=== PATIENT | female | born 1945 | race Two or more races ===

== ENCOUNTER 2018-04-25 10:26 | Inpatient (IN) | payer MEDICARE, MEDICAID ==
[~2018-04-25] VITALS: Ht 149.9 cm; Wt 65.3 kg
[~2018-04-25 10:26] MED LIST: ASPIR 8181 MG ORAL; DIFLUCAN100 MG ORAL; DOXYCYCLINE HY100 M2 ORAL; FUROSEMIDE40 MG ORAL; FUROSEMIDE40 MG/5 ML ORAL; HYDROMORPHO2 MG/1 M5 IVP; LEVEMIR FL100 UNIT/1 SUBQ; LIPITOR20 MG ORAL; LISINOPRIL20 MG ORAL; LOMOTIL TABLET1 EACH ORAL; MACROBID100 MG ORAL; METOPROLOL SUCC25 MG ORAL; NEXIUM40 MG ORAL; NORCO 10/3251 EA ORAL; NORVASC5 MG ORAL; NOVOLOG MI100 UNIT/4 SQ; NOVOLOG100 UNITS1 SUBQ; ONDANSETRON4 MG/2 M2 IVP; PROTONIX40 MG ORAL; SPIRONOLACTONE100 MG ORAL; TOPROL XL50 MG ORAL; VASOTEC10 MG ORAL
[2018-04-25] MEDS ORDERED: NEXIUM40 MG ORAL (14:59)
[2018-04-25] MEDS ORDERED: CLONIDINE HCL0.1 MG PO (14:59)
[2018-04-25] MEDS ORDERED: ENALAPRIL MALEAT5 MG ORAL (14:59)
[2018-04-25] MEDS ORDERED: TYLENOL WITH C1 EAC2 ORAL (14:59)
[2018-04-25] MEDS ORDERED: ASPIRIN81 M3 PO (15:00)
[2018-04-25 15:37] VITALS: BP 115/85
[2018-04-25 16:00] VITALS: BP 135/68
--- NOTE | 2018-04-25 16:49 | Diagnostic Imaging Report ---
Indication: Cough Technique: One view of the chest Comparison: 05/03/2015 Findings: Band of scarring is seen in the left midlung, unchanged. Lungs and pleural spaces otherwise clear. Heart size is upper limits of normal. The aorta is calcified. No significant interim change Impression: No acute process
[2018-04-25] MEDS: Tylenol #3 tab (300mg/30mg) ORAL PRN (18:02)
[2018-04-25] MEDS: cefTRIAXone 1 GM in D5W 55 ML IVPB SCH (18:10)
[2018-04-25 20:00] VITALS: BP 126/70
[2018-04-25 20:11] LABS: APPEARANCE,URINE CLEAR; BILIRUBIN, URINE NEGATIVE (NEGATIVE); COLOR,URINE PALE YELLOW; GLUCOSE, URINE (UA) NEGATIVE (NEGATIVE); KETONES,URINE NEGATIVE (NEGATIVE); LEUKOCYTE ESTERASE ,URINE 2+ (NEGATIVE); NITRITE,URINE NEGATIVE (NEGATIVE); PH,URINE 5 (4.5-8.0); PROTEIN,URINE 3+ (NEGATIVE); UROBILINOGEN,URINE NORMAL MG/DL (0.0-1.0)
[2018-04-25] MEDS: Albuterol/Ipratropium 3ml neb HHN SCH ×2 (20:11→23:16)
[2018-04-25 20:48] LABS: EOSINOPHILS % (AUTO) 3.7 % (0.0-3.0); HEMATOCRIT 32.6 % (37.0-47.0); HEMOGLOBIN 10.8 G/DL (12.0-16.0); LYMPHOCYTES % (AUTO) 32.8 % (20.0-45.0); MEAN CORPUSCULAR VOLUME 95 FL (80-99); MONOCYTES % (AUTO) 10.2 % (1.0-10.0); NEUTROPHILS % (AUTO) 51.4 % (45.0-75.0); PLATELET COUNT 171 K/UL (150-450); RED BLOOD COUNT 3.42 M/UL (4.20-5.40); RED CELL DISTRIBUTION WIDTH 12.4 % (11.6-14.8); WHITE BLOOD COUNT 12.3 K/UL (4.8-10.8)
[2018-04-25 20:57] LABS: ALANINE AMINOTRANSFERASE 13 U/L (12-78); ALBUMIN 2.9 G/DL (3.4-5.0); ALKALINE PHOSPHATASE 180 U/L (46-116); ANION GAP 9 mmol/L (5-15); ASPARTATE AMINO TRANSFERASE 10 U/L (15-37); BILIRUBIN,TOTAL 0.2 MG/DL (0.2-1.0); BLOOD UREA NITROGEN 37 mg/dL (7-18); CALCIUM 8.4 MG/DL (8.5-10.1); CARBON DIOXIDE 28 MMOL/L (21-32); CHLORIDE 102 MMOL/L (98-107); CREATININE 1.8 MG/DL (0.55-1.30); POTASSIUM 3.9 MMOL/L (3.5-5.1); SODIUM 138 MMOL/L (136-145)
[2018-04-25] MEDS: Heparin 5000 units/ml inj SUBQ SCH (21:01)
[2018-04-25] MEDS: NovoLOG Insulin Flexpen SUBQ SCH (21:02)
[2018-04-26] VITALS: BP 134/52
[2018-04-26] MEDS: Promethazine/Codeine 5ml UD ORAL PRN ×3 (00:24→13:54)
[2018-04-26] MEDS: Albuterol/Ipratropium 3ml neb HHN SCH ×6 (03:35→23:58)
[2018-04-26 04:00] VITALS: BP 131/80
[2018-04-26] MEDS: Tylenol #3 tab (300mg/30mg) ORAL PRN ×3 (04:50→20:49)
[2018-04-26] MEDS: NovoLOG Insulin Flexpen SUBQ SCH ×4 (06:36→20:51)
[2018-04-26 07:58] LABS: BASOPHILS % (AUTO) 0.9 % (0.0-2.0); EOSINOPHILS % (AUTO) 2.8 % (0.0-3.0); HEMATOCRIT 35.3 % (37.0-47.0); HEMOGLOBIN 11.3 G/DL (12.0-16.0); LYMPHOCYTES % (AUTO) 24.9 % (20.0-45.0); MEAN CORPUSCULAR VOLUME 93 FL (80-99); MONOCYTES % (AUTO) 10.8 % (1.0-10.0); NEUTROPHILS % (AUTO) 60.6 % (45.0-75.0); PLATELET COUNT 179 K/UL (150-450); RED BLOOD COUNT 3.79 M/UL (4.20-5.40); RED CELL DISTRIBUTION WIDTH 12.5 % (11.6-14.8); WHITE BLOOD COUNT 7.3 K/UL (4.8-10.8)
[2018-04-26 08:00] VITALS: BP 130/79
[2018-04-26] MEDS: Aspirin Baby 81mg ORAL SCH (08:53)
[2018-04-26] MEDS: Atorvastatin 20mg tab ORAL SCH (08:53)
[2018-04-26] MEDS: Metoprolol Succinate XL 50mg tab ORAL SCH (08:53)
[2018-04-26] MEDS: Enalapril 5mg tab ORAL SCH ×2 (08:54→18:04)
[2018-04-26] MEDS ORDERED: Furosemide 40mg tab ORAL SCH (09:00)
[2018-04-26] MEDS ORDERED: Enalapril 5mg tab ORAL SCH (09:00)
[2018-04-26] MEDS: Heparin 5000 units/ml inj SUBQ SCH ×2 (09:02→20:50)
[2018-04-26] MEDS: cefTRIAXone 1 GM in D5W 55 ML IVPB SCH (09:20)
[2018-04-26 10:13] LABS: ALANINE AMINOTRANSFERASE 13 U/L (12-78); ALBUMIN 2.9 G/DL (3.4-5.0); ALBUMIN/GLOBULIN RATIO 0.9 (1.0-2.7); ALKALINE PHOSPHATASE 178 U/L (46-116); ANION GAP 12 mmol/L (5-15); ASPARTATE AMINO TRANSFERASE 10 U/L (15-37); BILIRUBIN,TOTAL 0.4 MG/DL (0.2-1.0); BLOOD UREA NITROGEN 32 mg/dL (7-18); CALCIUM 8.5 MG/DL (8.5-10.1); CARBON DIOXIDE 25 MMOL/L (21-32); CHLORIDE 102 MMOL/L (98-107); CREATININE 1.6 MG/DL (0.55-1.30); SODIUM 139 MMOL/L (136-145)
--- NOTE | 2018-04-26 11:15 | Consultation ---
DATE OF CONSULTATION: 04/25/2018 CARDIOLOGY CONSULTATION CONSULTING PHYSICIAN: Eder Mariano M.D. REQUESTING PHYSICIAN: Brian Fernandez M.D. REASON FOR REQUEST: Management of cardiovascular status in the setting of cardiomyopathy and acute respiratory infection. HISTORY: This is a 72-year-old female with history of hypertensive cardiomyopathy, systolic and diastolic dysfunction, and nonsustained ventricular ectopy, who presented to the hospital. She was seen by her primary care physician today and hospitalized because of progressive shortness of breath, congestion, and cough. She has spent some time in the hospital recently visiting her ill here in the intensive care unit for some time. She has not had fevers or chills, but has had cough and congestion. She has not responded to outpatient therapy. She denies chest pain, but has had some increasing orthopnea and ankle swelling. PAST MEDICAL HISTORY: 1. History of abdominal fistula, which has now healed. 2. Chronic kidney disease. 3. Insulin-requiring diabetes mellitus. 4. Diabetic neuropathy. 5. Degenerative disk disease. 6. Chronic pain syndrome. 7. Osteoarthritis. 8. Diverticulosis. 9. Hypertensive heart disease. 10. Nonsustained ventricular ectopy. 11. Diastolic dysfunction with history of congestive heart failure. 12. History of anemia with iron deficiency. ALLERGIES: Multiple including sulfa, penicillin, iodine, contrast media, and Floxin. MEDICATIONS: Reviewed and reconciled. SOCIAL HISTORY: Negative for smoking, alcohol, or substance abuse. FAMILY HISTORY: Noncontributory. REVIEW OF SYSTEMS: Prior cardiovascular workup as an outpatient has included echocardiogram with mildly decreased ejection fraction in the range of 50%, concentric hypertrophy, and no significant valvular disease. There is no history of sustained arrhythmias. Myocardial perfusion scan at [facility] has revealed less than 10% likelihood of flow-limiting coronary artery disease. There is no history of abnormal blood clotting or venous thromboses. There is no history of thyroid impairment. PHYSICAL EXAMINATION: VITAL SIGNS: Temperature 99, blood pressure 115/85, heart rate 90, respiratory rate 18, room air oxygen saturations 95% to 100%. HEENT: Normocephalic and atraumatic. Conjunctivae are pink. Sclerae are anicteric. Oropharynx clear. Mucous membranes moist. NECK: Supple. Obese. Jugular venous pressure difficult to assess. No thyromegaly. LUNGS: With coarse breath sounds. Few rhonchi bilaterally. CARDIAC: Regular rhythm and rate. Normal S1, S2 with a fourth heart sound. BREASTS: Without masses. ABDOMEN: Soft, obese, nontender. Healed scar. EXTREMITIES: Trace dependent edema. Good distal pulses. NEUROLOGIC: Nonfocal. Gait is not assessed. LABORATORY AND DIAGNOSTIC DATA: EKG is pending. Laboratories, white count 12.3, hemoglobin 12.6. Potassium 3.9, BUN 37, creatinine 1.8, albumin 2.9, glucose 124. Chest x-ray with no acute process. IMPRESSION: 1. Acute bronchitis. 2. Acute respiratory insufficiency. 3. Acute on chronic renal failure. 4. Nonischemic cardiomyopathy. 5. Chronic diastolic congestive heart failure. 6. Hypertensive heart disease. 7. Moderate protein-calorie malnutrition. 8. Insulin-requiring diabetes mellitus with complications as outlined above. PLAN OF CARE: 1. Respiratory hygiene. 2. Bronchodilator. 3. Antimicrobials. 4. Hold furosemide. 5. DVT prophylaxis. 6. Advance angiotensin-converting enzyme inhibitor. 7. Reassess amlodipine as it may be contributing to edema. 8. Continue beta-blockade. 9. Readdress maintenance diuretic therapy. 10. Trend natriuretic peptide assay. Judson Webster JOB#: [id number] CC:
[2018-04-26 12:00] VITALS: BP 129/78
[2018-04-26 16:00] VITALS: BP 131/54
--- NOTE | 2018-04-26 17:45 | History and Physical Report ---
DATE OF ADMISSION: 04/25/2018 CHIEF COMPLAINT: Pneumonia, dehydration, and acute renal failure. HISTORY OF PRESENT ILLNESS: The patient is a pleasant 72-year-old female, well known to me. She has a history of nonischemic cardiomyopathy, diabetes, and hypertension. She has a history of chronic lower back pain. She has a history of a right wrist fracture. She presented with complaints of cough, congestion, and shortness of breath. She has had symptoms for a little over a week. She was started on oral antibiotics and given cough medications, but symptoms worsened. She is now admitted in light of her failure to respond to outpatient therapy. PAST MEDICAL HISTORY: As above. PAST SURGICAL HISTORY: Includes abdominal hernia repair, history of fistula repair, and history of ORIF of the ankle. CURRENT MEDICATIONS: Reconciled and reviewed. ALLERGIES: Include Cipro, iodine, penicillin, and sulfa. FAMILY HISTORY: Noncontributory. SOCIAL HISTORY: There is no known history of tobacco, ethanol, or drugs. REVIEW OF SYSTEMS: GENERAL: Positive fevers and chills. HEENT: No headaches or visual changes. CARDIOPULMONARY: Positive cough, congestion, and shortness of breath. GASTROINTESTINAL: No nausea or vomiting. GENITOURINARY: No urgency or frequency. MUSCULOSKELETAL: Positive history of chronic lower back pain, right wrist pain, and bilateral knee pain. NEUROLOGIC: No known history of seizures. PHYSICAL EXAMINATION: VITAL SIGNS: Temperature 97, pulse 82, respirations 18, and blood pressure 131/80. GENERAL: The patient is well-developed, in no apparent distress. HEART: Regular rate and rhythm. LUNGS: Clear to auscultation. Bilateral rhonchi. ABDOMEN: Soft, nontender, and nondistended. EXTREMITIES: Without clubbing, cyanosis, or edema. LABORATORY DATA: White count 12, hemoglobin 10, hematocrit 32, and platelets of 71,000. Sodium 138, potassium 3.9, chloride 102, bicarb 28, BUN 37, and creatinine is 1.8. Urine showed 5 to 10 wbc's with 2+ leukocyte esterase positive. Chest x-ray showed possible scarring at the left mid lung. Otherwise clear. ASSESSMENT: This is a pleasant female admitted with complaints of pneumonia. 1. Pneumonia. 2. Acute renal failure. 3. Dehydration. 4. Hypertension. 5. History of diabetes. PLAN: 1. IV hydration. 2. Empiric antibiotic therapy. 3. Monitor chest x-ray. 4. Cardiology evaluation. 5. Monitor renal function. 6. Consider discontinuing FIDE if renal function does not improve. Brian Fernandez M.D. DR: AMOS JOB#: [id number] CC:
[2018-04-26 20:00] VITALS: BP 133/75
[2018-04-27] VITALS: BP 120/65
[2018-04-27 04:00] VITALS: BP 132/70
[2018-04-27] MEDS: Promethazine/Codeine 5ml UD ORAL PRN ×2 (04:01→12:45)
[2018-04-27] MEDS: Albuterol/Ipratropium 3ml neb HHN SCH ×5 (04:09→19:00)
--- NOTE | 2018-04-27 06:00 | Progress Note ---
DATE: 04/26/2018 CARDIOLOGY PROGRESS NOTE SUBJECTIVE: The patient remains weak. Short of breath with activity. Still with cough and congestion. OBJECTIVE: VITAL SIGNS: Blood pressure 131/54, heart rate 89, respiratory rate 17, afebrile, and oxygen saturation 94% to 100% on room air. LUNGS: Coarse breath sounds and rhonchi. CARDIAC: Regular rhythm and rate. Normal S1 and S2. ABDOMEN: Soft. Hernia noted. Wound closed. EXTREMITIES: No edema. LABORATORY DATA: No new cultures. White count down to 7.3 and hemoglobin 11.2. Potassium 3, BUN 32, creatinine 1.6, magnesium 1.1. Albumin 2.9. IMPRESSION: 1. Bronchopneumonia. 2. Paroxysmal bronchospasm. 3. Severe hypokalemia. 4. Severe hypomagnesemia. 5. Hypertensive cardiomyopathy. 6. Chronic diastolic congestive heart failure. 7. Abdominal hernia postoperatively. No open wounds. PLAN: 1. No surgical plan. 2. Maintain antihypertensive and magnesium and potassium. 3. Antimicrobials. 4. Respiratory hygiene. 5. DVT prophylaxis. Eder Mariano M.D. DR: CIELO JOB#: [id number] CC:
[2018-04-27] MEDS: NovoLOG Insulin Flexpen SUBQ SCH ×4 (06:31→22:11)
--- NOTE | 2018-04-27 07:10 | General Progress Note ---
Assessment/Plan Problem List: (1) ARF (acute renal failure) ICD Codes: N17.9 - Acute kidney failure, unspecified SNOMED: 08988999 (2) Weakness ICD Codes: R53.1 - Weakness SNOMED: 94956010 (3) UTI (urinary tract infection) ICD Codes: N39.0 - Urinary tract infection, site not specified SNOMED: 43058990 (4) diabetes (5) hypertension (6) PNA (pneumonia) ICD Codes: J18.9 - Pneumonia, unspecified organism SNOMED: 102895541 Status: stable, progressing Assessment/Plan ivf diuretics on hold abx resp rx cough rx follow up labs pain rx check flu Subjective ROS Limited/Unobtainable: No Constitutional: Reports: malaise, weakness HEENT: Reports: no symptoms Cardiovascular: Reports: no symptoms Respiratory: Reports: cough, shortness of breath Gastrointestinal/Abdominal: Reports: no symptoms Genitourinary: Reports: no symptoms Neurologic/Psychiatric: Reports: no symptoms Endocrine: Reports: no symptoms Hematologic/Lymphatic: Reports: no symptoms Allergies: Coded Allergies: CIPROFLOXACIN (Verified Allergy, Unknown, RASH, 01/17/11) IODINE (Verified Allergy, Unknown, 09/20/10) IV DYE, IODINE CONTAINING (Verified Allergy, Unknown, SHOCK, 01/17/11) PENICILLINS (Verified Allergy, Unknown, 09/20/10) SULFA (SULFONAMIDE ANTIBIOTICS) (Verified Allergy, Unknown, RASH, 01/17/11) All Systems: reviewed and negative except above Subjective c/o cough and congestion. +generalized pain. mild sob. "pain all over." Objective Last 24 Hour Vital Signs Date Time Temp Pulse Resp B/P (MAP) Pulse Ox O2 Delivery O2 Flow Rate FiO2 04/27/18 04:19 74 18 99 Room Air 04/27/18 04:10 75 16 97 Room Air 21 04/27/18 04:00 98.7 88 20 132/70 (90) 98 98.7 04/27/18 00:06 70 18 100 Room Air 04/27/18 00:00 97.6 81 20 120/65 (83) 100 97.6 04/26/18 23:59 74 16 96 Room Air 21 04/26/18 21:00 Room Air 04/26/18 20:27 76 20 99 Room Air 21 04/26/18 20:19 79 20 97 Room Air 21 10/4/18 20:00 98.4 86 20 133/75 (94) 96 98.4 04/26/18 18:04 131/54 04/26/18 16:00 98.0 89 17 131/54 (79) 98 98.0 04/26/18 15:19 75 20 100 Room Air 21 04/26/18 15:07 77 20 94 Room Air 21 04/26/18 12:00 97.9 80 18 129/78 (95) 98 97.9 04/26/18 11:46 98.0 04/26/18 11:17 82 20 100 Room Air 21 04/26/18 11:16 98.0 04/26/18 11:10 88 20 98 Room Air 21 04/26/18 09:00 Room Air 04/26/18 08:54 130/79 04/26/18 08:53 98 130/79 04/26/18 08:53 98 130/79 04/26/18 08:14 98 20 100 Room Air 21 04/26/18 08:07 101 20 97 Room Air 21 04/26/18 08:00 98.0 82 20 130/79 (96) 97 98.0 Intake and Output 04/26/18 04/27/18 19:00 07:00 Intake Total 1480 ml 675 ml Balance 1480 ml 675 ml Intake Oral 1000 ml IV Total 480 ml 675 ml # Voids 6 3 # Bowel Movements 1 1 Height (Feet): 4 Height (Inches): 11.00 Weight (Pounds): 144 General Appearance: WD/WN, alert Neck: supple Cardiovascular: regular rhythm Respiratory/Chest: chest wall non-tender, rhonchi - bilaterally Abdomen: normal bowel sounds, non tender, soft, no organomegaly Edema: no edema noted Arm (L), no edema noted Arm (R), no edema noted Leg (L), no edema noted Leg (R), no edema noted Pedal (L), no edema noted Pedal (R), no edema noted Generalized Brian Fernandez MD Apr 27, 2018 07:10
[2018-04-27 08:00] VITALS: BP 145/76
[2018-04-27] MEDS: Atorvastatin 20mg tab ORAL SCH (09:16)
[2018-04-27] MEDS: Enalapril 5mg tab ORAL SCH ×2 (09:16→17:01)
[2018-04-27] MEDS: Aspirin Baby 81mg ORAL SCH (09:16)
[2018-04-27] MEDS: Metoprolol Succinate XL 50mg tab ORAL SCH (09:16)
[2018-04-27] MEDS: cefTRIAXone 1 GM in D5W 55 ML IVPB SCH (09:16)
[2018-04-27] MEDS: Morphine Sulfate 2mg/ml Inj IVP PRN ×3 (09:17→21:00)
[2018-04-27] MEDS: Heparin 5000 units/ml inj SUBQ SCH ×2 (09:24→21:00)
[2018-04-27 11:07] LABS: ANION GAP 7 mmol/L (5-15); BLOOD UREA NITROGEN 27 mg/dL (7-18); CALCIUM 8.8 MG/DL (8.5-10.1); CARBON DIOXIDE 25 MMOL/L (21-32); CHLORIDE 103 MMOL/L (98-107); CREATININE 1.2 MG/DL (0.55-1.30); POTASSIUM 4.8 MMOL/L (3.5-5.1); SODIUM 135 MMOL/L (136-145)
[2018-04-27 12:00] VITALS: BP 150/1
[2018-04-27 16:00] VITALS: BP 137/74
[2018-04-27] MEDS ORDERED: Levalbuterol Inh UD 1.25mg/0.5ml HHN PRN (17:30)
[2018-04-27 20:00] VITALS: BP 149/74
--- NOTE | 2018-04-27 20:45 | Progress Note ---
DATE: 04/27/2018 CARDIOLOGY PROGRESS NOTE SUBJECTIVE: The patient is feeling better. The patient still has cough, congestion, diffuse pain, and shortness of breath, especially with mobilization. OBJECTIVE: GENERAL: No fevers. VITAL SIGNS: Blood pressure 137/74, pulse 84, and respirations 20. NECK: Supple. LUNGS: Clear. CARDIAC: Regular rhythm and rate. Normal S1 and S2 with a 1/6 systolic apical murmur. ABDOMEN: Soft. Hernia is soft. EXTREMITIES: Trace dependent edema. SKIN: Wound sites on the abdomen are healed. LABORATORY DATA: White count down to 7.3 and hemoglobin 11.3. Sodium 135, potassium 4.8, magnesium 1.9, BUN 27, and creatinine 1.2. IMPRESSION: 1. Bronchopneumonia. 2. Cardiomyopathy. 3. Chronic diastolic congestive heart failure. 4. Moderate protein-calorie malnutrition. 5. Hypertensive heart disease. 6. Acute on chronic renal failure, now improved. PLAN: 1. Antimicrobials. 2. Bronchodilators. 3. Respiratory hygiene. 4. Titrate anti-failure and antihypertensive regimen. 5. Discontinue IV fluids. 6. DVT prophylaxis. Eder Mariano M.D. DR: AMANDA JOB#: [id number] CC:
[2018-04-28] VITALS: BP 144/86
[2018-04-28] MEDS: Albuterol/Ipratropium 3ml neb HHN SCH ×7 (01:35→22:42)
[2018-04-28] MEDS: Morphine Sulfate 2mg/ml Inj IVP PRN ×3 (03:30→14:38)
[2018-04-28] MEDS: Promethazine/Codeine 5ml UD ORAL PRN ×3 (04:04→20:31)
[2018-04-28 04:46] VITALS: BP 137/81
[2018-04-28] MEDS: NovoLOG Insulin Flexpen SUBQ SCH ×4 (05:55→20:27)
[2018-04-28 07:02] LABS: CHLORIDE 104 MMOL/L (98-107); POTASSIUM 4.7 MMOL/L (3.5-5.1); SODIUM 138 MMOL/L (136-145)
[2018-04-28 07:20] LABS: ANION GAP 7 mmol/L (5-15); BLOOD UREA NITROGEN 25 mg/dL (7-18); CALCIUM 9.9 MG/DL (8.5-10.1); CARBON DIOXIDE 27 MMOL/L (21-32); CREATININE 1.1 MG/DL (0.55-1.30)
[2018-04-28 08:00] VITALS: BP 152/89
--- NOTE | 2018-04-28 08:31 | General Progress Note ---
Assessment/Plan Problem List: (1) ARF (acute renal failure) ICD Codes: N17.9 - Acute kidney failure, unspecified SNOMED: 04246781 (2) Weakness ICD Codes: R53.1 - Weakness SNOMED: 30144227 (3) UTI (urinary tract infection) ICD Codes: N39.0 - Urinary tract infection, site not specified SNOMED: 86737486 (4) diabetes (5) hypertension (6) PNA (pneumonia) ICD Codes: J18.9 - Pneumonia, unspecified organism SNOMED: 170760913 Status: stable, progressing Assessment/Plan ivf dcd diuretics as needed abx resp rx cough rx follow up labs pain rx replace mg Subjective ROS Limited/Unobtainable: No Constitutional: Reports: malaise, weakness HEENT: Reports: no symptoms Cardiovascular: Reports: no symptoms Respiratory: Reports: cough Gastrointestinal/Abdominal: Reports: no symptoms Genitourinary: Reports: no symptoms Neurologic/Psychiatric: Reports: no symptoms Endocrine: Reports: no symptoms Hematologic/Lymphatic: Reports: no symptoms Allergies: Coded Allergies: CIPROFLOXACIN (Verified Allergy, Unknown, RASH, 01/17/11) IODINE (Verified Allergy, Unknown, 09/20/10) IV DYE, IODINE CONTAINING (Verified Allergy, Unknown, SHOCK, 01/17/11) PENICILLINS (Verified Allergy, Unknown, 09/20/10) SULFA (SULFONAMIDE ANTIBIOTICS) (Verified Allergy, Unknown, RASH, 01/17/11) All Systems: reviewed and negative except above Subjective c/o cough and congestion. +generalized pain. feeling a "little better." +pain Objective Last 24 Hour Vital Signs Date Time Temp Pulse Resp B/P (MAP) Pulse Ox O2 Delivery O2 Flow Rate FiO2 04/28/18 05:03 74 20 99 Room Air 21 04/28/18 04:54 71 20 99 Room Air 21 04/28/18 04:46 98.0 79 19 137/81 (99) 100 98.0 04/28/18 04:00 97.7 04/28/18 03:30 97.7 04/28/18 01:43 63 20 99 Room Air 21 04/28/18 01:35 68 20 98 Room Air 21 04/28/18 00:00 97.7 94 19 144/86 (105) 97 97.7 04/27/18 21:00 98.9 04/27/18 21:00 Room Air 04/27/18 20:00 98.0 74 19 149/74 (99) 96 98.0 04/27/18 17:01 137/74 04/27/18 16:00 98.9 84 20 137/74 (95) 98 98.9 04/27/18 15:38 97.6 04/27/18 12:00 97.6 73 20 150/1 (50) 98 97.6 04/27/18 10:55 78 20 100 Room Air 21 04/27/18 10:47 77 18 96 Room Air 21 04/27/18 09:17 98.9 04/27/18 09:16 145/76 04/27/18 09:16 88 145/76 04/27/18 09:16 88 145/76 04/27/18 09:00 Room Air Intake and Output 04/27/18 04/28/18 19:00 07:00 Intake Total 700 ml 120 ml Balance 700 ml 120 ml Intake Oral 700 ml 120 ml # Voids 6 3 # Bowel Movements 1 Laboratory Tests 04/27/18 10:10: Sodium Level 135L, Potassium Level 4.8#, Chloride Level 103, Carbon Dioxide Level 25, Anion Gap 7, Blood Urea Nitrogen 27H, Creatinine 1.2, Estimat Glomerular Filtration Rate , Glucose Level 215H, Calcium Level 8.8, Magnesium Level 1.9 04/28/18 04:50: Sodium Level 138, Potassium Level 4.7, Chloride Level 104, Carbon Dioxide Level 27, Anion Gap 7, Blood Urea Nitrogen 25H, Creatinine 1.1, Estimat Glomerular Filtration Rate , Glucose Level 195H, Calcium Level 9.9, Magnesium Level 1.7L Height (Feet): 4 Height (Inches): 11.00 Weight (Pounds): 144 General Appearance: WD/WN, alert Neck: supple Cardiovascular: normal rate, regular rhythm Respiratory/Chest: chest wall non-tender, lungs clear, normal breath sounds, no respiratory distress Abdomen: normal bowel sounds, non tender, soft, no organomegaly Edema: no edema noted Arm (L), no edema noted Arm (R), no edema noted Leg (L), no edema noted Leg (R), no edema noted Pedal (L), no edema noted Pedal (R), no edema noted Generalized Brian Fernandez MD Apr 28, 2018 08:31
[2018-04-28] MEDS: Atorvastatin 20mg tab ORAL SCH (08:53)
[2018-04-28] MEDS: Aspirin Baby 81mg ORAL SCH (08:53)
[2018-04-28] MEDS: Enalapril 5mg tab ORAL SCH ×2 (08:58→17:42)
[2018-04-28] MEDS: Metoprolol Succinate XL 50mg tab ORAL SCH (08:59)
[2018-04-28] MEDS: Heparin 5000 units/ml inj SUBQ SCH ×2 (09:00→20:26)
[2018-04-28] MEDS: cefTRIAXone 1 GM in D5W 55 ML IVPB SCH (09:00)
[2018-04-28 12:00] VITALS: BP 140/81
[2018-04-28 16:00] VITALS: BP 160/78
[2018-04-28] MEDS: Tylenol #3 tab (300mg/30mg) ORAL PRN (16:42)
[2018-04-28 20:00] VITALS: BP 98/53
[2018-04-29] VITALS: BP 100/52
[2018-04-29] MEDS: Morphine Sulfate 2mg/ml Inj IVP PRN ×5 (02:09→23:17)
--- NOTE | 2018-04-29 02:15 | Progress Note ---
DATE: 04/28/2018 CARDIOLOGY PROGRESS NOTE SUBJECTIVE: The patient still feels generalized pain and weakness and she still has cough and congestion, but has improved. No chest pain. No leg swelling. She is receiving IV magnesium. OBJECTIVE: VITAL SIGNS: Blood pressure 137/81, pulse 79, respiratory rate 19, afebrile, and oxygen saturation is 99% on room air. LUNGS: Few rhonchi. HEART: Regular rhythm and rate. Normal S1 and S2. ABDOMEN: Soft with hernia noted. EXTREMITIES: Without edema. LABORATORY DATA: Repeat magnesium today is 1.7. IMPRESSION: 1. Bronchopneumonia. 2. Hypomagnesemia. 3. Hypertensive cardiomyopathy. 4. Chronic diastolic congestive heart failure. 5. Acute on chronic renal failure, resolving. 6. Moderate protein-calorie malnutrition. PLAN: 1. Plan of care in place. 2. Continue antimicrobials, bronchodilators, respiratory hygiene, and IV magnesium replacement. 3. Continue titration of anti-failure and antihypertensive regimen based on clinical parameters. Eder Mariano M.D. DR: DARCI JOB#: [id number] CC:
[2018-04-29] MEDS: Albuterol/Ipratropium 3ml neb HHN SCH ×6 (02:29→23:01)
[2018-04-29 04:00] VITALS: BP 105/62
[2018-04-29] MEDS: NovoLOG Insulin Flexpen SUBQ SCH ×4 (05:57→21:39)
[2018-04-29 08:00] VITALS: BP 150/73
[2018-04-29] MEDS: Aspirin Baby 81mg ORAL SCH (08:21)
[2018-04-29] MEDS: Enalapril 5mg tab ORAL SCH ×2 (08:22→17:05)
[2018-04-29] MEDS: Atorvastatin 20mg tab ORAL SCH (08:22)
[2018-04-29] MEDS: Metoprolol Succinate XL 50mg tab ORAL SCH (08:23)
[2018-04-29] MEDS: Heparin 5000 units/ml inj SUBQ SCH ×2 (08:33→21:40)
[2018-04-29] MEDS: cefTRIAXone 1 GM in D5W 55 ML IVPB SCH (08:38)
[2018-04-29] MEDS: Tylenol #3 tab (300mg/30mg) ORAL PRN (10:46)
[2018-04-29 12:00] VITALS: BP_SYST 119; BP_SYST 122; BP_DIAS 66; BP_DIAS 76
--- NOTE | 2018-04-29 14:54 | General Progress Note ---
Assessment/Plan Problem List: (1) ARF (acute renal failure) ICD Codes: N17.9 - Acute kidney failure, unspecified SNOMED: 04436107 (2) Weakness ICD Codes: R53.1 - Weakness SNOMED: 68401065 (3) UTI (urinary tract infection) ICD Codes: N39.0 - Urinary tract infection, site not specified SNOMED: 63200260 (4) diabetes (5) hypertension (6) PNA (pneumonia) ICD Codes: J18.9 - Pneumonia, unspecified organism SNOMED: 471884453 Status: stable, progressing Assessment/Plan encourage pos diuretics as needed abx resp rx cough rx pain rx dc planning tomorrow Subjective ROS Limited/Unobtainable: No Constitutional: Reports: malaise, weakness HEENT: Reports: no symptoms Cardiovascular: Reports: no symptoms Respiratory: Reports: no symptoms Gastrointestinal/Abdominal: Reports: no symptoms Genitourinary: Reports: no symptoms Neurologic/Psychiatric: Reports: no symptoms Endocrine: Reports: no symptoms Hematologic/Lymphatic: Reports: no symptoms Allergies: Coded Allergies: CIPROFLOXACIN (Verified Allergy, Unknown, RASH, 01/17/11) IODINE (Verified Allergy, Unknown, 09/20/10) IV DYE, IODINE CONTAINING (Verified Allergy, Unknown, SHOCK, 01/17/11) PENICILLINS (Verified Allergy, Unknown, 09/20/10) SULFA (SULFONAMIDE ANTIBIOTICS) (Verified Allergy, Unknown, RASH, 01/17/11) All Systems: reviewed and negative except above Subjective decreased cough and congestion. feeling better. no fevers. pain better controlled. off ivf. Objective Last 24 Hour Vital Signs Date Time Temp Pulse Resp B/P (MAP) Pulse Ox O2 Delivery O2 Flow Rate FiO2 04/29/18 12:20 Room Air 21 04/29/18 12:20 Room Air 21 04/29/18 12:00 98.1 80 20 122/76 (91) 98.1 04/29/18 09:00 Room Air 04/29/18 08:46 81 18 99 Room Air 21 04/29/18 08:38 72 20 100 Room Air 21 04/29/18 08:23 65 168/78 04/29/18 08:22 168/78 04/29/18 08:22 65 168/78 04/29/18 08:00 98.9 81 18 150/73 (98) 96 98.9 04/29/18 04:00 97.6 85 18 105/62 (76) 100 97.6 04/29/18 02:47 79 18 99 Room Air 21 04/29/18 02:29 77 18 96 Room Air 21 04/29/18 00:00 97.5 78 17 100/52 (68) 93 97.5 04/28/18 22:54 82 18 98 Room Air 21 04/28/18 22:42 75 18 97 Room Air 21 04/28/18 21:00 Room Air 04/28/18 20:06 84 18 99 Room Air 21 04/28/18 20:00 96.6 83 18 98/53 (68) 93 96.6 04/28/18 19:53 82 18 94 Room Air 21 04/28/18 17:42 160/78 04/28/18 17:31 160/78 04/28/18 17:12 98.9 04/28/18 16:42 98.9 04/28/18 16:00 97.4 91 20 160/78 (105) 94 97.4 04/28/18 15:57 86 20 97 Room Air 21 04/28/18 15:37 87 20 95 Room Air 21 04/28/18 15:08 98.9 Intake and Output 04/28/18 04/29/18 19:00 07:00 Intake Total 755 ml 500 ml Balance 755 ml 500 ml Intake Oral 700 ml 500 ml IV Total 55 ml # Voids 5 2 # Bowel Movements 1 Height (Feet): 4 Height (Inches): 11.00 Weight (Pounds): 144 Objective General Appearance: WD/WN, alert Neck: supple Cardiovascular: normal rate, regular rhythm Respiratory/Chest: chest wall non-tender, lungs clear, normal breath sounds, no respiratory distress Abdomen: normal bowel sounds, non tender, soft, no organomegaly Edema: no edema noted Arm (L), no edema noted Arm (R), no edema noted Leg (L), no edema noted Leg (R), no edema noted Pedal (L), no edema noted Pedal (R), no edema noted Generalized Brian Fernandez MD Apr 29, 2018 14:54
[2018-04-29] MEDS ORDERED: NS 275ml ONE (15:22)
[2018-04-29 16:00] VITALS: BP 127/71
[2018-04-29 20:00] VITALS: BP 90/51
[2018-04-29] MEDS: Promethazine/Codeine 5ml UD ORAL PRN (21:40)
[2018-04-30] VITALS: BP 116/65
--- NOTE | 2018-04-30 | Progress Note ---
DATE: 04/29/2018 CARDIOLOGY PROGRESS NOTE SUBJECTIVE: The patient has less cough and congestion. She feels better with no shortness of breath. OBJECTIVE: VITAL SIGNS: Blood pressure 122/76, pulse 80, respirations 20. LUNGS: Clear with few rhonchi. CARDIAC: Regular rhythm and rate. Normal S1, S2 with a fourth heart sound. No new murmur. ABDOMEN: Soft with hernia site easily reduced. EXTREMITIES: Reveal no edema with good distal pulses. IMPRESSION: 1. Clinically improved, no signs of acute congestive heart failure. 2. Hypertension, well controlled. PLAN: 1. Maintain current cardiovascular regimen. 2. Continue current respiratory treatments and antimicrobials per primary care physician. 3. Mobilize. Continue DVT prophylaxis until improved mobility. 4. No need for additional diuretics at this time. Eder Mariano M.D. DR: DARIN JOB#: [id number] CC:
[2018-04-30] MEDS: Albuterol/Ipratropium 3ml neb HHN SCH ×6 (03:19→23:29)
[2018-04-30 04:00] VITALS: BP 120/61
[2018-04-30] MEDS: Morphine Sulfate 2mg/ml Inj IVP PRN ×3 (04:26→22:00)
[2018-04-30] MEDS: NovoLOG Insulin Flexpen SUBQ SCH ×4 (06:40→20:51)
[2018-04-30] MEDS: Promethazine/Codeine 5ml UD ORAL PRN (06:45)
--- NOTE | 2018-04-30 07:48 | General Progress Note ---
Assessment/Plan Problem List: (1) ARF (acute renal failure) ICD Codes: N17.9 - Acute kidney failure, unspecified SNOMED: 15496320 (2) Weakness ICD Codes: R53.1 - Weakness SNOMED: 45603223 (3) UTI (urinary tract infection) ICD Codes: N39.0 - Urinary tract infection, site not specified SNOMED: 72929650 (4) diabetes (5) hypertension (6) PNA (pneumonia) ICD Codes: J18.9 - Pneumonia, unspecified organism SNOMED: 623904933 Status: stable, progressing Assessment/Plan encourage pos diuretics as needed abx resp rx cough rx increased pain rx hold dc in light of hypoglycemia and continued congestion,sob,cough Subjective ROS Limited/Unobtainable: No Constitutional: Reports: malaise, weakness HEENT: Reports: no symptoms Cardiovascular: Reports: no symptoms Respiratory: Reports: cough, shortness of breath Gastrointestinal/Abdominal: Reports: no symptoms Genitourinary: Reports: no symptoms Neurologic/Psychiatric: Reports: no symptoms Endocrine: Reports: no symptoms Hematologic/Lymphatic: Reports: no symptoms Allergies: Coded Allergies: CIPROFLOXACIN (Verified Allergy, Unknown, RASH, 01/17/11) IODINE (Verified Allergy, Unknown, 09/20/10) IV DYE, IODINE CONTAINING (Verified Allergy, Unknown, SHOCK, 01/17/11) PENICILLINS (Verified Allergy, Unknown, 09/20/10) SULFA (SULFONAMIDE ANTIBIOTICS) (Verified Allergy, Unknown, RASH, 01/17/11) All Systems: reviewed and negative except above Subjective hypoglycemic 40 this am. not eating- per staff less than 20%. cant stop coughing. feels weak and not well enough to go home yet Objective Last 24 Hour Vital Signs Date Time Temp Pulse Resp B/P (MAP) Pulse Ox O2 Delivery O2 Flow Rate FiO2 04/30/18 04:26 98.1 04/30/18 04:00 97.9 62 20 120/61 (80) 100 97.9 04/30/18 03:29 75 18 97 Room Air 21 04/30/18 03:19 73 16 95 Room Air 21 04/30/18 00:00 98.1 82 19 116/65 (82) 96 98.1 04/29/18 23:11 79 16 98 Room Air 21 04/29/18 23:01 78 18 97 Room Air 21 04/29/18 21:00 Room Air 04/29/18 20:00 97.9 80 20 90/51 (64) 95 97.9 04/29/18 19:54 76 18 99 Room Air 21 04/29/18 19:44 72 16 95 Room Air 21 04/29/18 17:05 127/71 04/29/18 16:00 98.2 72 18 127/71 (89) 93 98.2 04/29/18 15:10 80 18 99 Room Air 21 04/29/18 15:04 76 18 98 Room Air 21 04/29/18 12:20 Room Air 21 04/29/18 12:20 Room Air 21 04/29/18 12:00 98.2 71 20 119/66 (83) 98.2 04/29/18 09:00 Room Air 04/29/18 08:46 81 18 99 Room Air 21 04/29/18 08:38 72 20 100 Room Air 21 04/29/18 08:23 65 168/78 04/29/18 08:22 168/78 04/29/18 08:22 65 168/78 04/29/18 08:00 98.9 81 18 150/73 (98) 96 98.9 Intake and Output 04/29/18 04/30/18 19:00 07:00 Intake Total 600 ml 360 ml Balance 600 ml 360 ml Intake Oral 600 ml 360 ml # Voids 4 3 # Bowel Movements 1 Height (Feet): 4 Height (Inches): 11.00 Weight (Pounds): 144 Objective General Appearance: WD/WN, alert Neck: supple Cardiovascular: normal rate, regular rhythm Respiratory/Chest: chest wall non-tender, lungs clear, normal breath sounds, no respiratory distress Abdomen: normal bowel sounds, non tender, soft, no organomegaly Edema: no edema noted Arm (L), no edema noted Arm (R), no edema noted Leg (L), no edema noted Leg (R), no edema noted Pedal (L), no edema noted Pedal (R), no edema noted Generalized Brian Fernandez MD Apr 30, 2018 07:48
[2018-04-30 08:00] VITALS: BP 147/79
[2018-04-30] MEDS: cefTRIAXone 1 GM in D5W 55 ML IVPB SCH (09:55)
[2018-04-30] MEDS: guaiFENesin ER 600mg tab ORAL SCH ×2 (09:55→20:49)
[2018-04-30] MEDS: Enalapril 5mg tab ORAL SCH ×2 (09:55→17:26)
[2018-04-30] MEDS: Metoprolol Succinate XL 50mg tab ORAL SCH (09:55)
[2018-04-30] MEDS: Atorvastatin 20mg tab ORAL SCH (09:55)
[2018-04-30] MEDS: Aspirin Baby 81mg ORAL SCH (09:56)
[2018-04-30] MEDS: Tylenol #3 tab (300mg/30mg) ORAL PRN (09:56)
[2018-04-30] MEDS: Heparin 5000 units/ml inj SUBQ SCH ×2 (09:59→20:50)
[2018-04-30 12:00] VITALS: BP 159/74
[2018-04-30 16:00] VITALS: BP 137/77
[2018-04-30 20:08] VITALS: BP 133/88
[2018-05-01 00:05] VITALS: BP 126/70
[2018-05-01] MEDS: Albuterol/Ipratropium 3ml neb HHN SCH ×2 (02:34→07:04)
[2018-05-01 04:00] VITALS: BP 132/59
--- NOTE | 2018-05-01 05:00 | Progress Note ---
DATE: 04/30/2018 CARDIOLOGY PROGRESS NOTE SUBJECTIVE: The patient's condition deteriorated today. She is increasingly congested and short of breath. She has moist sputum production. OBJECTIVE: VITAL SIGNS: Blood pressure 126/70, pulse 79, and respirations 20. LUNGS: Coarse breath sounds. HEART: Regular rhythm and rate. Normal S1 and S2. ABDOMEN: Soft. EXTREMITIES: Trace edema. IMPRESSION: 1. Bronchopneumonia. 2. Paroxysmal bronchospasm. 3. Acute on chronic diastolic congestive heart failure. 4. Hypertensive cardiomyopathy. 5. History of nonsustained ventricular ectopy. 6. Insulin-requiring diabetes mellitus with neuropathy. 7. Abdominal hernia. 8. History of enterocutaneous fistula, resolved. 9. Hypoglycemia due to poor oral intake. PLAN: 1. Adjust insulin. 2. Continue bronchodilators. 3. Antimicrobials. 4. Check natriuretic peptide assay and chest radiograph. 5. Adjust cardiovascular regimen. 6. Reassess for diuresis. 7. DVT prophylaxis. Eder Mariano M.D. DR: CIELO JOB#: [id number] CC:
[2018-05-01] MEDS: Morphine Sulfate 2mg/ml Inj IVP PRN (05:21)
[2018-05-01] MEDS: NovoLOG Insulin Flexpen SUBQ SCH (05:52)
[2018-05-01 06:36] LABS: BASOPHILS % (AUTO) 1.8 % (0.0-2.0); EOSINOPHILS % (AUTO) 4.5 % (0.0-3.0); HEMATOCRIT 35.6 % (37.0-47.0); LYMPHOCYTES % (AUTO) 35.9 % (20.0-45.0); MEAN CORPUSCULAR VOLUME 94 FL (80-99); MONOCYTES % (AUTO) 9.1 % (1.0-10.0); NEUTROPHILS % (AUTO) 48.6 % (45.0-75.0); PLATELET COUNT 149 K/UL (150-450); RED BLOOD COUNT 3.77 M/UL (4.20-5.40); RED CELL DISTRIBUTION WIDTH 12.9 % (11.6-14.8); WHITE BLOOD COUNT 6.7 K/UL (4.8-10.8)
[2018-05-01 07:17] LABS: ALANINE AMINOTRANSFERASE 16 U/L (12-78); ALBUMIN/GLOBULIN RATIO 0.8 (1.0-2.7); ALKALINE PHOSPHATASE 188 U/L (46-116); ASPARTATE AMINO TRANSFERASE 23 U/L (15-37); BILIRUBIN,TOTAL 0.4 MG/DL (0.2-1.0); BLOOD UREA NITROGEN 32 mg/dL (7-18); CALCIUM 9.4 MG/DL (8.5-10.1); CHLORIDE 103 MMOL/L (98-107); POTASSIUM 5.4 MMOL/L (3.5-5.1); SODIUM 136 MMOL/L (136-145)
[2018-05-01 07:29] VITALS: BP 158/71
[2018-05-01 07:59] LABS: CARBON DIOXIDE 20 MMOL/L (21-32)
[2018-05-01] MEDS ORDERED: Sodium Polystyrene Sulfonate 15gm Powder ORAL SCH (08:15)
[2018-05-01] MEDS: Atorvastatin 20mg tab ORAL SCH (08:30)
[2018-05-01] MEDS: Aspirin Baby 81mg ORAL SCH (08:30)
[2018-05-01 08:31] VITALS: BP 158/71
[2018-05-01] MEDS: Enalapril 5mg tab ORAL SCH (08:31)
[2018-05-01] MEDS: Metoprolol Succinate XL 50mg tab ORAL SCH (08:31)
[2018-05-01] MEDS: guaiFENesin ER 600mg tab ORAL SCH (08:31)
[2018-05-01] MEDS: Heparin 5000 units/ml inj SUBQ SCH (08:35)
[2018-05-01] MEDS: Tylenol #3 tab (300mg/30mg) ORAL PRN (08:42)
[2018-05-01] MEDS: cefTRIAXone 1 GM in D5W 55 ML IVPB SCH (09:00)
--- NOTE | 2018-05-01 13:31 | Discharge Summary ---
DATE OF ADMISSION: 04/25/2018 DATE OF DISCHARGE: 05/01/2018 ADMISSION DIAGNOSES: 1. Pneumonia. 2. Diabetes. 3. Hypertension. 4. History of hypertensive heart disease. DISCHARGE DIAGNOSES: 1. Pneumonia. 2. Diabetes. 3. Hypertension. 4. History of hypertensive heart disease. HOSPITAL COURSE: The patient is a pleasant female with complaints of cough, congestion, and shortness of breath. She had been on antibiotic therapy as an outpatient, but failed to improve. She was admitted, she received IV antibiotic therapy. She received cough medications, gentle hydration. She was noted to be in acute renal failure secondary to dehydration. Renal function improved with hydration. On discharge, the patient was well. She completed all antibiotic therapy while in-house. She was discharged home in stable condition. DISCHARGE MEDICATIONS: Please see discharge medication list for discharge medications. DIET: Cardiac and diabetic diet. ACTIVITY: Ad-carla. FOLLOWUP: The patient is to follow up in one to two weeks in the office. Brian Fernandez M.D. DR: BOBBY JOB#: [id number] CC:
--- NOTE | 2018-05-02 02:15 | Progress Note ---
DATE: 05/01/2018 CARDIOLOGY PROGRESS NOTE SUBJECTIVE: The patient feels better. No shortness of breath. Minimal cough. Appetite is fair. No chest pain. No leg swelling. OBJECTIVE: VITAL SIGNS: Blood pressure 158/71, pulse 80, and respirations 20. LUNGS: Clear. Few rhonchi. HEART: Regular rhythm and rate. Normal S1 and S2 with a fourth heart sound. ABDOMEN: Soft. EXTREMITIES: Trace ankle edema. Abdominal hernia is reducible. IMPRESSION: 1. Rising blood pressure trend. 2. Hypertensive heart disease. 3. Chronic diastolic congestive heart failure. 4. Recovering bronchopneumonia. 5. Insulin-requiring diabetes with complications. 6. Venous stasis. 7. History of abdominal hernia, enterocutaneous fistula now heals. PLAN: Stable for outpatient followup on current medication regimen. Reassess blood pressure control and advance enalapril if needed. Monitor volume status and cardiorenal parameters. Diuretic therapy will be titrated as well. The patient instructed to guidelines for increasing diuretic dose including weight, signs of edema, and shortness of breath. Eder Mariano M.D. DR: AMANDA JOB#: [id number] CC:
== END 2018-05-01 10:20 | disposition home health service (06) | DRG 194 ==
LOC: 4E 13:26
DX: J18.9 Pneumonia, unspecified organism (principal); N17.9 Acute kidney failure, unspecified; I50.32 Chronic diastolic (congestive) heart failure; I42.8 Other cardiomyopathies; I13.0 Hypertensive heart and chronic kidney disease with heart failure and stage 1 through stage 4 chronic kidney disease, or unspecified chronic kidney disease; E44.0 Moderate protein-calorie malnutrition; E86.0 Dehydration; Z88.1 Allergy status to other antibiotic agents; Z88.0 Allergy status to penicillin; Z88.2 Allergy status to sulfonamides; Z88.8 Allergy status to other drugs, medicaments and biological substances; E11.9 Type 2 diabetes mellitus without complications; G89.29 Other chronic pain; M54.5 Low back pain; E11.22 Type 2 diabetes mellitus with diabetic chronic kidney disease; N18.9 Chronic kidney disease, unspecified; Z79.4 Long term (current) use of insulin; E11.40 Type 2 diabetes mellitus with diabetic neuropathy, unspecified; M19.90 Unspecified osteoarthritis, unspecified site; K57.90 Diverticulosis of intestine, part unspecified, without perforation or abscess without bleeding; E87.6 Hypokalemia; E83.42 Hypomagnesemia
CPT/HCPCS: 36415; 71045; 80048; 80053; 81001; 82962; 83735; 83880; 85025; 86710; 87070; 87205; 94640; 94664; J1815; J2405; J7620; J8499

== ENCOUNTER 2019-03-21 10:12 | Inpatient (IN) | payer MEDICARE, MEDICAID ==
--- NOTE | 2019-03-20 19:30 | NUR ---
Nurse Notes Pt received by Mee Pt alert oriented able to make needs known. Pt on RA no acute distress noted. Pt IV intact NS@ 100ml/hr patent. pt able to void. walker at bedside. pt instructed to call for assistance before getting out of bed. Pt bed in lowest position call light in reach.
[~2019-03-21] VITALS: Ht 132.1 cm; Wt 65.0 kg
[~2019-03-21 10:12] MED LIST changes: +ASPIRIN81 M3 PO; +CLONIDINE HCL0.1 MG PO; +ENALAPRIL MALEAT5 MG ORAL; +TYLENOL WITH C1 EAC2 ORAL
--- NOTE | 2019-03-21 13:53 | NUR ---
NURSE NOTES: Patient is a direct admission into room 302 bed 2 from Doctor Rebecca office,patient complaint of having diarrhea since the month with weakness and having pain in the stomach. Will notify DR Fernandez for admission orders. daughter is at the bedside.
[2019-03-21 13:57] VITALS: BP 159/90
--- NOTE | 2019-03-21 14:48 | NUR ---
NURSE NOTES: Patient state daughter will bring in list of medications.
[2019-03-21 16:00] VITALS: BP 140/70
[2019-03-21] MEDS ORDERED: NovoLOG Insulin Flexpen SUBQ SCH ×2 (16:30→21:00)
[2019-03-21 16:47] LABS: BASOPHILS % (AUTO) 1.5 % (0.0-2.0); EOSINOPHILS % (AUTO) 2.1 % (0.0-3.0); HEMOGLOBIN 11.4 G/DL (12.0-16.0); LYMPHOCYTES % (AUTO) 33.9 % (20.0-45.0); MEAN CORPUSCULAR VOLUME 94 FL (80-99); MONOCYTES % (AUTO) 10.6 % (1.0-10.0); PLATELET COUNT 150 K/UL (150-450); RED BLOOD COUNT 3.61 M/UL (4.20-5.40); RED CELL DISTRIBUTION WIDTH 13.4 % (11.6-14.8)
--- NOTE | 2019-03-21 16:50 | NUR ---
NURSE NOTES: Call placed to DR Fernandez for update ,DR Mariano placed orders and to see if other orders are needed.
--- NOTE | 2019-03-21 16:50 | NUR ---
NURSE NOTES: Call placed to DR Fernandez to update on ordesr received from DR Mariano and if further orders needed.
[2019-03-21] MEDS: NovoLOG Insulin Flexpen SUBQ SCH ×2 (17:11→21:53)
[2019-03-21 17:17] LABS: ALANINE AMINOTRANSFERASE 12 U/L (12-78); ALBUMIN/GLOBULIN RATIO 1.1 (1.0-2.7); ALKALINE PHOSPHATASE 123 U/L (46-116); ANION GAP 10 mmol/L (5-15); ASPARTATE AMINO TRANSFERASE 7 U/L (15-37); BILIRUBIN,TOTAL 0.4 MG/DL (0.2-1.0); BLOOD UREA NITROGEN 29 mg/dL (7-18); CALCIUM 9.8 MG/DL (8.5-10.1); CARBON DIOXIDE 25 MMOL/L (21-32); CHLORIDE 107 MMOL/L (98-107); CREATININE 1.1 MG/DL (0.55-1.30); POTASSIUM 4.3 MMOL/L (3.5-5.1); SODIUM 141 MMOL/L (136-145)
--- NOTE | 2019-03-21 19:30 | NUR ---
NURSE NOTES: Patient complain of abdominal pain,call placed to Doctor,endorse to oncoming nurse to follow up.
--- NOTE | 2019-03-21 19:40 | NUR ---
HAND-OFF: Report given to Charlee NICE.
[2019-03-21] MEDS ORDERED: Tylenol #3 tab (300mg/30mg) ORAL PRN (19:45)
[2019-03-21 20:00] VITALS: BP 137/71
[2019-03-21] MEDS ORDERED: HYDROmorphone 1mg/ml Carpuject IVP PRN (20:00)
[2019-03-21] MEDS: Heparin 5000 units/ml inj SUBQ SCH (21:42)
[2019-03-21] MEDS: HYDROmorphone 1mg/ml Carpuject IVP PRN (21:49)
[2019-03-22] VITALS (7 sets, daily range): BP systolic 90–169; BP diastolic 54–75
--- NOTE | 2019-03-22 | NUR ---
NURSE NOTES: Receive a report from ARLET Deshpande. Pt is lying in bed for sleep. No acute distress. Breathing is even and non labored. No diarrhea noted at this time. Pt is aware of calling nurse to assist. Abdominal pain 3/10 after pain medication. No N/V/dizziness noted. Leave call light within reach. Bed is locked and lowest. On yellow socks for ambulation. BP: 165/69mmHg. No headache or neck stiffness noted. Will continue to monitor.
[2019-03-22] MEDS: HYDROmorphone 1mg/ml Carpuject IVP PRN ×5 (01:57→21:17)
--- NOTE | 2019-03-22 03:45 | Consultation ---
DATE OF CONSULTATION: 03/21/2019 CARDIOLOGY CONSULTATION CONSULTING PHYSICIAN: Eder Mariano M.D. REQUESTING PHYSICIAN: Brian Fernandez M.D. REASON FOR CONSULTATION: Cardiovascular management in the setting of cardiomyopathy with refractory nausea, vomiting, and diarrhea. HISTORY OF PRESENT ILLNESS: This is a 73-year-old female with nonischemic cardiomyopathy due to hypertensive heart disease. She has a history of chronic systolic and diastolic congestive heart failure and nonsustained ventricular arrhythmia. She has been managed medically. Her most recent echocardiogram was in the range of 55%. She has not had any recent deterioration in her cardiac function based on clinical parameters. She has had significant worsening in her overall functioning due to progressive weakness due to persisting diarrhea, nausea, and abdominal pain with some vomiting. She has failed outpatient management and is admitted for further workup. PAST MEDICAL HISTORY: Includes abdominal fistula, status post surgical intervention and ultimate resolution, insulin-requiring diabetes mellitus, diabetic nephropathy with chronic kidney disease, diabetic neuropathy, degenerative disk disease with chronic back pain and lumbosacral radiculopathy, unsteady gait, osteoarthritis, diverticulosis, hypertensive cardiomyopathy, diastolic and systolic dysfunction, anemia with iron deficiency, nonsustained ventricular ectopy, and hypomagnesemia. SOCIAL HISTORY: Positive for smoking. No alcohol or substance abuse. MEDICATIONS: Reviewed and reconciled. ALLERGIES: Include sulfa, penicillin, iodine, and Floxin. FAMILY HISTORY: Noncontributory. REVIEW OF SYSTEMS: Prior outpatient cardiovascular workup as well outlined above. She did have a myocardial perfusion scan two years ago that revealed less than 10% likelihood of flow-limiting coronary artery disease. This study was performed at [facility]. There is no history of abnormal blood clotting. No history of thyroid disease. Her diabetes is managed with insulin. Her most recent echocardiogram as described above. She does have a history of nonsustained ventricular arrhythmias. There is no history of seizure or stroke. She is a recent . PHYSICAL EXAM: VITAL SIGNS: Blood pressure 159/90, heart rate 78, respiratory rate 20, and afebrile. HEENT: Conjunctivae pink. Sclerae are anicteric. Arcus senilis. Oropharynx clear. Mucous membranes dry. NECK: Supple. Jugular venous pressure normal. LUNGS: Clear. BREASTS: Without discrete masses. CARDIAC: Regular rhythm and rate. Normal S1, S2. Point of maximal pulse sustained, laterally displaced. There is a fourth heart sound. No murmur. ABDOMEN: Soft, doughy, and nontender. Focally, no open wound. EXTREMITIES: Good pulses. No edema. NEUROLOGIC: Reveals sensory and motor deficits. Symmetric motor deficits of the lower extremities with mild weakness. LABORATORY DATA: White count 7, hemoglobin 11.4, and platelet count 150,000. TSH 0.5. Glucose 287. BUN 29 and creatinine 1.1. Potassium 4.3. IMPRESSION: 1. Diarrhea. 2. Hypovolemia and dehydration. 3. Nausea with intermittent vomiting. 4. Prerenal azotemia. 5. History of hypomagnesemia. 6. Hypertensive cardiomyopathy. PLAN: 1. Check stool studies. 2. IV fluid hydration with saline. 3. Await laboratory studies. 4. Maintain baseline cardiovascular regimen and titrate based on clinical parameters. 5. We will follow with you during this hospital course. Eder Mariano M.D. DR: JESSICA JOB#: [id number] CC:
--- NOTE | 2019-03-22 05:30 | NUR ---
NURSE NOTES: Confirm with Radiology for Abdominal CT by 8am. Educate pt for NPO for test. Pt verbalizes understanding. BP: 149/67mmHg. Pain level went down to 3-4/10. Will continue to monitor.
[2019-03-22 05:42] LABS: APPEARANCE,URINE CLEAR; BILIRUBIN, URINE NEGATIVE (NEGATIVE); COLOR,URINE PALE YELLOW; GLUCOSE, URINE (UA) 4+ (NEGATIVE); KETONES,URINE NEGATIVE (NEGATIVE); LEUKOCYTE ESTERASE ,URINE NEGATIVE (NEGATIVE); NITRITE,URINE NEGATIVE (NEGATIVE); PH,URINE 7 (4.5-8.0); PROTEIN,URINE 3+ (NEGATIVE); UROBILINOGEN,URINE NORMAL MG/DL (0.0-1.0)
[2019-03-22] MEDS: NovoLOG Insulin Flexpen SUBQ SCH ×4 (06:49→20:47)
--- NOTE | 2019-03-22 07:00 | History and Physical Report ---
DATE OF ADMISSION: 03/21/2019 CHIEF COMPLAINT: Intractable diarrhea, dehydration, and failure to thrive. HISTORY OF PRESENT ILLNESS: The patient is a 73-year-old female well known to me. She has a history of nonischemic cardiomyopathy, hypertensive heart disease, chronic lower back pain, and diabetes. She has a history of a chronic abdominal wound. She presented to the office with complaints of one month intractable diarrhea. She was seen a little over a month ago in the office. At that time, she was noted to be having multiple episodes of diarrhea. Cultures at that time were unremarkable. The patient was given Lomotil and Imodium. She came for a followup. On the day of admission, family members noted the patient continued to have diarrhea. She was losing weight, becoming progressively weak. Family denies any nausea or vomiting. No fevers. No chills. There is no recent history of travel or ill contacts. In light of the patient's persistent and intractable diarrhea at home, she is now admitted for further evaluation and care. PAST MEDICAL HISTORY: As above. PAST SURGICAL HISTORY: Includes a history of hernia repair. CURRENT MEDICATIONS: Reconciled and reviewed. ALLERGIES: Include Cipro, iodine, penicillin, and sulfa. FAMILY HISTORY: Noncontributory. SOCIAL HISTORY: There is no known history of tobacco, ethanol, or drugs. PHYSICAL EXAMINATION: VITAL SIGNS: Temp was 97.6, pulse 68, respirations 18, and blood pressure 149/67. GENERAL: The patient is a well-developed female, in no apparent distress. She is awake, alert, and oriented x4. NECK: Supple. There is no adenopathy noted. No jugular venous distention. HEART: Regular rate and rhythm. LUNGS: Clear. ABDOMEN: Soft. The patient is mildly tender throughout. Bowel sounds were normoactive. EXTREMITIES: Without clubbing, cyanosis, or edema. LABORATORY DATA: Sodium 141, potassium 4.3, and bicarb of 25. Mag of 1.6. Natriuretic peptide level was 657. The white count was 7 and hemoglobin was 11. UA was clear. Stool cultures are pending. CT of the abdomen is currently pending. ASSESSMENT: This is a 73-year-old female with a history of hypertensive heart disease, diabetes, nonischemic cardiomyopathy, history of chronic abdominal pain, and hernia admitted with intractable diarrhea. Would be concerned about possible C. diff colitis or a possible chronic GI infection in light of the chronicity of her diarrhea. Additional problems include diabetes and hypertension and history of congestive heart failure. PLAN: 1. IV hydration. 2. Antidiarrheal medications. 3. Check stool cultures. 4. GI and Cardiology followup. 5. Continue outpatient cardiac regimen. 6. Continue diabetic regimen. 7. IV and oral pain medications as needed. Brian Fernandez M.D. DR: AMOS JOB#: [id number] CC:
--- NOTE | 2019-03-22 07:30 | NUR ---
NURSE NOTES: Patient is in bed awake and able to verbalize needs. Stable. Complains of pain, will administer pain medication as ordered. Patient encouraged to use call light for assistance, verbalized understanding. Patient is in bed in locked and lowest position with call light within reach. All safety measures provided. Will continue to monitor.
--- NOTE | 2019-03-22 07:30 | NUR ---
HAND-OFF: Report given to ARLET Puri. Round is done. Pt is lying in bed with NPO for Abdominal CT.
[2019-03-22] MEDS: Heparin 5000 units/ml inj SUBQ SCH ×2 (08:22→20:46)
[2019-03-22] MEDS: Aspirin Baby 81mg ORAL SCH (08:23)
[2019-03-22] MEDS: Metoprolol Succinate XL 50mg tab ORAL SCH (08:23)
--- NOTE | 2019-03-22 08:43 | NUR ---
P.T Note: P.T evaluation completed per spinal protocol. Education provided to patient and re: proper spinal precautions and proper body mechanics through written handouts, discussions, return demonstration and practice. Pt was able to verbalize good understanding of the above information and was able to return demonstration as well. Pt is currently functioning independently and safety within the surgical guidelines. NO further P.T follow up at this time. AL P.T services.
--- NOTE | 2019-03-22 12:56 | Diagnostic Imaging Report ---
Indication: Abdominal pain Technique: Continuous helical transaxial imaging of the abdomen and pelvis was obtained from the lung bases to the pubic symphysis. No intravenous contrast was administered. Coronal 2-D reformats were also obtained. Automatic Exposure Control was utilized. Total Dose length Product (DLP): 846.[address] Dose Index Volume (CTDIvol): 19.07 mGy Comparison: 06/15/2014 CT abdomen pelvis Findings: The lung bases are clear. There is a fairly large broad-based defect and hernia in the ventral abdominal wall containing mesenteric fat and loops of bowel. The right hemicolon is abnormal with wall thickening. This continues into the transverse colon to some extent. Correlate for colitis. There are diverticula noted within the left hemicolon without evidence of diverticulitis. There is no evidence of bowel obstruction. There is moderate calcification of aorta. There is suggestion of a left renal hypodensity which may be a cyst but not definitive on this exam. Gallstones are present. There is no hydronephrosis. There is no ascites. Small left inguinal hernia containing fat. There are small punctate calcifications within both kidneys again noted. Severe compression fracture deformity of L1 vertebra again noted grossly unchanged since the last study. IMPRESSION: Suspected colitis involving the right hemicolon possibly transverse colon as well. Correlate clinically. No change otherwise demonstrated compared to the previous study. Other incidental findings include large broad-based ventral hernia, atherosclerotic vascular disease, diverticulosis of the colon, severe compression fracture deformity involving the L1 vertebra, hypodensity in the left kidney not optimally evaluated on the current study, suggestion of nonobstructive stones within both kidneys, atherosclerotic vascular disease, gallstones. The CT scanner at [facility] is accredited by the [employer] and the scans are performed using dose optimization techniques as appropriate to a performed exam including Automatic Exposure control.
--- NOTE | 2019-03-22 14:45 | NUR ---
NURSE NOTES: Nurse report given by ARLET Puri. Patient's stable condition, AO x 4, pain stated 3/10, no s/s of distress or SOB. IV is infiltrated, tenderness and redness. Will put in another IV line. Will continue to monitor.
--- NOTE | 2019-03-22 14:45 | NUR ---
HAND-OFF: Report given to Rabia NICE. Patient is stable.
--- NOTE | 2019-03-22 16:30 | NUR ---
CASE MANAGEMENT:REVIEW 73 YR OLD FEMALE CC: INTRACTABLE DIARRHEA SI: DEHYDRATION 98.0 78 20 159/90 94% ON RA BUN+29 CR-1.6 IS: IVF@100/HR : DIRECTLY ADMITTED TO MED/[facility]
--- NOTE | 2019-03-22 16:37 | NUR ---
HAND-OFF: Report given to ARLET Kaba. Patient's stable. Plan of care endorsed.
--- NOTE | 2019-03-22 16:57 | NUR ---
NURSE NOTES: Received report from ARLET Kaba. Pt a/o x 4, in bed. No respiratory distress noted. Denies any pain, no diarrhea noted. Rt wrist IV is patent. Ns is running at this time. Bed in lowest position, call light within reach. Will continue to monitor.
--- NOTE | 2019-03-22 19:19 | NUR ---
NURSE NOTES: Mg was 1.6 yesterday but no meds given. Dr. Fernandez was notified and ordered 2g of mag sulfate IV. Noted and carried out.
[2019-03-22] MEDS ORDERED: HUMALOG100 UNIT/3 SUBQ (19:21)
[2019-03-22] MEDS ORDERED: MAGNESIUM OXID400 M1 ORAL (19:21)
[2019-03-22] MEDS ORDERED: CYMBALTA20 MG ORAL (19:21)
[2019-03-22] MEDS ORDERED: LANTUS SOL100 UNIT/1 SUBQ (19:21)
[2019-03-22] MEDS ORDERED: VITAMIN B-12500 MCG ORAL (19:21)
[2019-03-22] MEDS ORDERED: ZOFRAN4 M3 ORAL (19:21)
[2019-03-22] MEDS ORDERED: ATORVASTATIN CA80 MG ORAL (19:21)
[2019-03-22] MEDS ORDERED: CARDURA1 MG ORAL (19:21)
[2019-03-22] MEDS ORDERED: VITAMIN D250000 UNI1 ORAL (19:21)
[2019-03-22] MEDS ORDERED: ARICEPT5 MG ORAL (19:21)
[2019-03-22] MEDS ORDERED: ENALAPRIL MALEA20 MG ORAL (19:21)
[2019-03-22] MEDS ORDERED: AMLODIPINE BESYL5 MG ORAL (19:21)
[2019-03-22] MEDS ORDERED: DEPAKOTE125 MG PO (19:21)
--- NOTE | 2019-03-22 19:37 | NUR ---
HAND-OFF: Report given to ARLET Adams.
--- NOTE | 2019-03-22 19:38 | NUR ---
NURSE NOTES: Received report & pt from ARLET Ramos. Pt lying in bed, a&ox4, in room air. No s/s of acute distress & c/o 6/10 pain. Will give PRN pain med when due & pt verbalized understanding. Skin intact. IV site intact with IVF running as ordered. Will run Mg IVPB as ordered. Bed in lowest position, call light within reach. Will continue to monitor.
--- NOTE | 2019-03-22 22:00 | Progress Note ---
DATE: 03/22/2019 CARDIOLOGY PROGRESS NOTE SUBJECTIVE: The patient continues to have diarrhea and some abdominal cramping. CAT scan of the abdomen was completed. No acute changes noted from prior study. OBJECTIVE: VITAL SIGNS: Blood pressure labile 90/54 to 142/66, heart rate 65, respiratory rate 16, and afebrile. LUNGS: Clear. CARDIAC: Regular rhythm and rate. Normal S1, S2 with a 1/6 systolic murmur at the apex. ABDOMEN: Soft belly. Tender in the lower quadrants predominantly. No guarding or rebound. EXTREMITIES: No edema. LABORATORY DATA: Pro-natriuretic peptide 657. Magnesium 1.6. Potassium 4.3, BUN 29, and creatinine 1.1. Albumin 3. Urinalysis with 0 to 2 white cells. IMPRESSION: 1. Diarrhea. 2. Dehydration. 3. Prerenal azotemia. 4. Hypomagnesemia. 5. Chronic diastolic congestive heart failure. 6. Hypertensive heart disease with labile blood pressure. PLAN: 1. Await stool studies. 2. Hold parameters for antihypertensives and anti-failure drugs in view of episodic hypotension. 3. Antidiarrheal therapy. 4. IV hydration with close monitoring of volume status and cardiorenal parameters. 5. Intravenous magnesium replacement. Eder Mariano M.D. DR: ROBB JOB#: [id number] CC:
[2019-03-23] VITALS: BP 146/74
[2019-03-23] MEDS: HYDROmorphone 1mg/ml Carpuject IVP PRN ×6 (01:41→21:59)
[2019-03-23 04:00] VITALS: BP 155/77
[2019-03-23] MEDS: NovoLOG Insulin Flexpen SUBQ SCH ×4 (05:50→21:04)
--- NOTE | 2019-03-23 07:31 | NUR ---
HAND-OFF: Report given to ARLET Hunt. Rounds done. Pt in sable condition.
[2019-03-23 08:00] VITALS: BP 175/70
--- NOTE | 2019-03-23 08:13 | NUR ---
NURSE NOTES: Pt up in bed escorted to restroom. Dr Dos Santos here seen pt will be monitored for episodes of diarrhea. Pt informed not to flush toilet to assess output
[2019-03-23] MEDS: Aspirin Baby 81mg ORAL SCH (09:06)
[2019-03-23] MEDS: Metoprolol Succinate XL 50mg tab ORAL SCH (09:06)
[2019-03-23] MEDS: Heparin 5000 units/ml inj SUBQ SCH ×2 (09:10→21:05)
--- NOTE | 2019-03-23 11:27 | NUR ---
NURSE NOTES: Pt currently sleeping . Easy to arouse. IV remains patent . Requires assistance to restroom due to slight imbalance probably from slight curvature to spine. Walker at bedside . Will continue current plan of care
[2019-03-23 12:00] VITALS: BP 155/90
--- NOTE | 2019-03-23 12:37 | General Progress Note ---
Assessment/Plan Problem List: (1) Uncontrolled diabetes mellitus ICD Codes: E11.65 - Type 2 diabetes mellitus with hyperglycemia SNOMED: 477316846 Status: stable Assessment/Plan: check stool cultures GI eval pain rx monitor bs antiemetics ivf Subjective ROS Limited/Unobtainable: No Constitutional: Reports: malaise, weakness HEENT: Reports: no symptoms Cardiovascular: Reports: no symptoms Respiratory: Reports: no symptoms Gastrointestinal/Abdominal: Reports: diarrhea Genitourinary: Reports: no symptoms Neurologic/Psychiatric: Reports: no symptoms Endocrine: Reports: no symptoms Hematologic/Lymphatic: Reports: no symptoms Allergies: Coded Allergies: CIPROFLOXACIN (Verified Allergy, Unknown, RASH, 01/17/11) IODINE (Verified Allergy, Unknown, 09/20/10) IV DYE, IODINE CONTAINING (Verified Allergy, Unknown, SHOCK, 01/17/11) PENICILLINS (Verified Allergy, Unknown, 09/20/10) SULFA (SULFONAMIDE ANTIBIOTICS) (Verified Allergy, Unknown, RASH, 01/17/11) All Systems: reviewed and negative except above Subjective c/o generalized pain. 4 episodes of diarrhea yesterday. no fever or chills. CT abd with colitis. Objective Last 24 Hour Vital Signs Date Time Temp Pulse Resp B/P (MAP) Pulse Ox O2 Delivery O2 Flow Rate FiO2 03/23/19 09:07 70 175/72 03/23/19 09:06 70 175/72 03/23/19 09:00 Room Air 03/23/19 08:00 97.8 70 16 175/70 (105) 98 03/23/19 04:00 97.5 64 17 155/77 (103) 94 03/23/19 00:00 97.6 67 16 146/74 (98) 98 03/22/19 21:00 Room Air 03/22/19 20:33 142/66 (91) 03/22/19 20:00 98.3 65 16 90/54 (66) 93 03/22/19 16:00 97.5 64 18 155/75 (101) 95 Intake and Output 03/22/19 03/23/19 18:59 06:59 Intake Total 1200 ml 1200 ml Balance 1200 ml 1200 ml Intake Oral 300 ml 200 ml IV Total 900 ml 1000 ml # Voids 5 3 # Bowel Movements 2 Height (Feet): 4 Height (Inches): 10.00 Weight (Pounds): 142 General Appearance: WD/WN, alert Neck: supple Cardiovascular: normal rate Respiratory/Chest: chest wall non-tender, lungs clear, normal breath sounds Abdomen: normal bowel sounds, non tender, soft, no organomegaly Edema: no edema noted Arm (L), no edema noted Arm (R), no edema noted Leg (L), no edema noted Leg (R), no edema noted Pedal (L), no edema noted Pedal (R), no edema noted Generalized Neurologic: laundry presser II-XII grossly normal, no motor/sensory deficits, alert, oriented x 3, responsive Brian Fernandez MD Mar 23, 2019 12:37
[2019-03-23 16:00] VITALS: BP 153/88
[2019-03-23 20:00] VITALS: BP 122/73
--- NOTE | 2019-03-23 20:03 | NUR ---
NURSE NOTES: Pt taken to restroom times 7 no additional episodes with diarrhea. Blood sugar elevated at dinner. Qued n what she had eaten , shrugged her shoulders 269. " I thought my dm went away" Provided pt teaching on disease and food items to be eaten in combinations to level out food items. Encouraged to have nails filed down extremely long. Informed of risk of infection and potential of poor healing 2 high risk of injury to nail beds due to length of nails
--- NOTE | 2019-03-23 20:07 | NUR ---
HAND-OFF: Report given to Angie NICE.
--- NOTE | 2019-03-23 20:08 | NUR ---
NURSE NOTES: Received report & pt from ARLET Hunt. Pt lying in bed, a&ox4, in room air. No s/s of acute distress & no c/o 8/10 pain at this time. Will give PRN pain med when due & pt verbalize understanding. IV site intact with IVF running as ordered. Skin intact. Bed in lowest position, call light within reach. Will continue to monitor.
[2019-03-24] VITALS: BP 133/73
[2019-03-24] MEDS: HYDROmorphone 1mg/ml Carpuject IVP PRN ×6 (02:40→23:41)
--- NOTE | 2019-03-24 06:30 | NUR ---
NURSE NOTES: Pt had normal BM. No diarrhea, no loose stool. Addendum: 03/24/19 at 0702 by Angie Cool RN @ 1860 Dr. Fernandez made rounds. Informed MD of the above.
[2019-03-24] MEDS: NovoLOG Insulin Flexpen SUBQ SCH ×4 (06:35→22:05)
[2019-03-24 07:04] LABS: BASOPHILS % (AUTO) 0.8 % (0.0-2.0); EOSINOPHILS % (AUTO) 4.8 % (0.0-3.0); HEMATOCRIT 32.3 % (37.0-47.0); HEMOGLOBIN 10.5 G/DL (12.0-16.0); LYMPHOCYTES % (AUTO) 31.7 % (20.0-45.0); MEAN CORPUSCULAR VOLUME 97 FL (80-99); MONOCYTES % (AUTO) 12.4 % (1.0-10.0); NEUTROPHILS % (AUTO) 50.3 % (45.0-75.0); PLATELET COUNT 133 K/UL (150-450); RED BLOOD COUNT 3.34 M/UL (4.20-5.40); RED CELL DISTRIBUTION WIDTH 13.6 % (11.6-14.8); WHITE BLOOD COUNT 8.1 K/UL (4.8-10.8)
--- NOTE | 2019-03-24 07:30 | NUR ---
HAND-OFF: Report given to Phillip NICE/Joy RN. Pt in stable condition. Rounds done.
[2019-03-24 07:36] LABS: ALANINE AMINOTRANSFERASE 11 U/L (12-78); ALBUMIN 2.7 G/DL (3.4-5.0); ALBUMIN/GLOBULIN RATIO 0.9 (1.0-2.7); ALKALINE PHOSPHATASE 106 U/L (46-116); ANION GAP 10 mmol/L (5-15); ASPARTATE AMINO TRANSFERASE 13 U/L (15-37); BILIRUBIN,TOTAL 0.6 MG/DL (0.2-1.0); BLOOD UREA NITROGEN 16 mg/dL (7-18); CALCIUM 9.2 MG/DL (8.5-10.1); CARBON DIOXIDE 25 MMOL/L (21-32); CHLORIDE 107 MMOL/L (98-107); CREATININE 0.8 MG/DL (0.55-1.30); POTASSIUM 3.4 MMOL/L (3.5-5.1); SODIUM 142 MMOL/L (136-145)
[2019-03-24 08:00] VITALS: BP 140/75
--- NOTE | 2019-03-24 08:00 | NUR ---
NURSE NOTES: Received report from Angie NICE, pt laying in bed a/a/o x3 laying in bed with no signs of distress or other issues at this time. pt has a left MERA gauge 324 running NS@100ml/hr. call light within reach, bed in lowest position, side rales up x2. I will f/u as needed.
[2019-03-24] MEDS: Metoprolol Succinate XL 50mg tab ORAL SCH (08:33)
[2019-03-24] MEDS: Aspirin Baby 81mg ORAL SCH (08:33)
[2019-03-24] MEDS: Heparin 5000 units/ml inj SUBQ SCH ×2 (08:37→21:00)
--- NOTE | 2019-03-24 11:35 | General Progress Note ---
Assessment/Plan Problem List: (1) Uncontrolled diabetes mellitus ICD Codes: E11.65 - Type 2 diabetes mellitus with hyperglycemia SNOMED: 489410835 Status: stable, progressing Assessment/Plan: check stool cultures GI eval appreciated pain rx monitor bs antiemetics ivf colonoscopy Subjective ROS Limited/Unobtainable: No Constitutional: Reports: malaise, weakness HEENT: Reports: no symptoms Cardiovascular: Reports: no symptoms Respiratory: Reports: no symptoms Gastrointestinal/Abdominal: Reports: abdominal pain, diarrhea Genitourinary: Reports: no symptoms Neurologic/Psychiatric: Reports: no symptoms Endocrine: Reports: no symptoms Hematologic/Lymphatic: Reports: no symptoms Allergies: Coded Allergies: CIPROFLOXACIN (Verified Allergy, Unknown, RASH, 01/17/11) IODINE (Verified Allergy, Unknown, 09/20/10) IV DYE, IODINE CONTAINING (Verified Allergy, Unknown, SHOCK, 01/17/11) PENICILLINS (Verified Allergy, Unknown, 09/20/10) SULFA (SULFONAMIDE ANTIBIOTICS) (Verified Allergy, Unknown, RASH, 01/17/11) All Systems: reviewed and negative except above Subjective still with diarrhea. ct scan with colitis. cdiff neg. abd pain controlled. no vomiting. Objective Last 24 Hour Vital Signs Date Time Temp Pulse Resp B/P (MAP) Pulse Ox O2 Delivery O2 Flow Rate FiO2 03/24/19 09:00 Room Air 03/24/19 08:33 60 140/75 03/24/19 08:33 60 140/75 03/24/19 08:00 98.7 60 18 140/75 (96) 97 03/24/19 00:00 98.3 60 16 133/73 (93) 93 03/23/19 21:00 Room Air 03/23/19 20:00 98.6 65 17 122/73 (89) 95 03/23/19 16:00 98.9 76 17 153/88 (109) 97 03/23/19 12:00 98.9 72 16 155/90 (111) Intake and Output 03/23/19 03/24/19 18:59 06:59 Intake Total 772 ml 1220 ml Balance 772 ml 1220 ml Intake Oral 472 ml 220 ml IV Total 300 ml 1000 ml # Voids 7 6 # Bowel Movements 1 1 Laboratory Tests 03/24/19 04:45: White Blood Count 8.1, Red Blood Count 3.34L, Hemoglobin 10.5L, Hematocrit 32.3L , Mean Corpuscular Volume 97, Mean Corpuscular Hemoglobin 31.4H, Mean Corpuscular Hemoglobin Concent 32.5, Red Cell Distribution Width 13.6, Platelet Count 133L, Mean Platelet Volume 6.3L, Neutrophils (%) (Auto) 50.3, Lymphocytes (%) (Auto) 31.7, Monocytes (%) (Auto) 12.4H, Eosinophils (%) (Auto) 4.8H, Basophils (%) (Auto) 0.8, Sodium Level 142, Potassium Level 3.4L, Chloride Level 107, Carbon Dioxide Level 25, Anion Gap 10, Blood Urea Nitrogen 16, Creatinine 0.8, Estimat Glomerular Filtration Rate , Glucose Level 171H, Calcium Level 9.2, Magnesium Level 1.4L, Total Bilirubin 0.6, Aspartate Amino Transf (AST/SGOT) 13L, Alanine Aminotransferase (ALT/SGPT) 11L, Alkaline Phosphatase 106, Total Protein 5.6L, Albumin 2.7L, Globulin 2.9, Albumin/ Globulin Ratio 0.9L Height (Feet): 4 Height (Inches): 10.00 Weight (Pounds): 142 Objective General Appearance: WD/WN, alert Neck: supple Cardiovascular: normal rate Respiratory/Chest: chest wall non-tender, lungs clear, normal breath sounds Abdomen: normal bowel sounds, non tender, soft, no organomegaly Edema: no edema noted Arm (L), no edema noted Arm (R), no edema noted Leg (L), no edema noted Leg (R), no edema noted Pedal (L), no edema noted Pedal (R), no edema noted Generalized Neurologic: psychology tech II-XII grossly normal, no motor/sensory deficits, alert, oriented x 3, responsive Brian Fernandez MD Mar 24, 2019 11:35
[2019-03-24 11:50] VITALS: BP 169/79
[2019-03-24 13:00] VITALS: BP 149/65
[2019-03-24 16:00] VITALS: BP 149/62
--- NOTE | 2019-03-24 19:00 | Consultation ---
DATE OF CONSULTATION: 03/24/2019 CONSULTING PHYSICIAN: Rodney Arreguin M.D. CHIEF COMPLAINT: Diarrhea. HISTORY OF PRESENT ILLNESS: This is a 73-year-old female with history of nonischemic cardiomyopathy, hypertensive heart disease, chronic back pain, and diabetes, presented to the hospital having chronic diarrhea. Apparently, the patient has been seen by the primary care physician, was given Lomotil, was given Imodium. Diarrhea did not improve. The patient was admitted here for dehydration and persistent diarrhea over a month. CT showed evidence of colitis, mostly on the right side. The patient's last colonoscopy over 10 years ago. So, the patient was admitted for possible colonoscopy. PAST MEDICAL HISTORY: 1. History of ischemic cardiomyopathy. 2. Hypertensive heart disease. 3. Chronic low back pain. 4. Diabetes. MEDICATIONS: Please see medication reconciliation list. ALLERGIES: Cipro, iodine, penicillin, and sulfa. FAMILY HISTORY: Noncontributory. SOCIAL HISTORY: The patient denies any tobacco, alcohol, or drug abuse. PAST SURGICAL HISTORY: History of hernia repair. REVIEW OF SYSTEMS: A 10-point review of systems was performed and pertinent positives in HPI. PHYSICAL EXAMINATION: VITAL SIGNS: Temperature is , pulse , respirations 16, blood pressure . HEENT: Normocephalic and atraumatic. Sclerae anicteric. NECK: Supple. No evidence of obvious lymphadenopathy. CARDIOVASCULAR: Regular rate and rhythm. Plus S1 and S2. No obvious murmur. LUNGS: Clear to auscultation bilaterally. ABDOMEN: Positive bowel sounds. Minimal tenderness to palpation diffusely mostly on the right side compared to left. No rebound. No guarding. No peritoneal sign. EXTREMITIES: No cyanosis. No clubbing. No edema. LABORATORY DATA: White count 8.1, hemoglobin 10, hematocrit 32, platelet count is 133. ASSESSMENT AND PLAN: This is a 73-year-old female with chronic diarrhea and also evidence of anemia. The patient would benefit from colonoscopy and endoscopy for evaluation of anemia and chronic diarrhea. The patient to be prepped tomorrow and is scheduled by Dr. Atkins for Monday. Meanwhile, we will send the stool studies. We will do anemia workup. I want to thank Dr. Fernandez for this kind referral. Rodney Arreguin M.D. DR: JAQUELIN JOB#: [id number] CC: Brian Fernandez M.D.
--- NOTE | 2019-03-24 19:02 | NUR ---
HAND-OFF: Report given to Ms Oh accordingly. torie holden
--- NOTE | 2019-03-24 19:30 | NUR ---
NURSE NOTES: Receive a report from RN, Ms. Ulloa. Round is done. Pt is awake and alert, sitting in bed. No acute distress noted but complains for abdominal pain 8/. Will provide pain medication as scheduled. Call light within reach and bed is locked and lowest. Will continue to monitor.
[2019-03-24 20:00] VITALS: BP 160/94
--- NOTE | 2019-03-24 23:45 | NUR ---
NURSE NOTES: Noted abdominal pain, 03/02. Administer prn pain medication. Pt is aware of bowel preparation tomorrow for colonoscopy. Call light within reach. Will continue to monitor.
[2019-03-25] VITALS: BP 153/61
[2019-03-25] MEDS: HYDROmorphone 1mg/ml Carpuject IVP PRN ×5 (04:32→22:32)
[2019-03-25 04:44] VITALS: BP 126/68
[2019-03-25] MEDS: NovoLOG Insulin Flexpen SUBQ SCH ×4 (06:28→21:44)
--- NOTE | 2019-03-25 07:27 | General Progress Note ---
Assessment/Plan Problem List: (1) Uncontrolled diabetes mellitus ICD Codes: E11.65 - Type 2 diabetes mellitus with hyperglycemia SNOMED: 836760821 Status: stable, progressing Assessment/Plan: cont current rx ivf pain rx PPI colonoscopy tomorrow d/w pt and dtr x 10 min Subjective ROS Limited/Unobtainable: No Constitutional: Reports: malaise, weakness HEENT: Reports: no symptoms Cardiovascular: Reports: no symptoms Respiratory: Reports: no symptoms Gastrointestinal/Abdominal: Reports: abdominal pain, diarrhea Genitourinary: Reports: no symptoms Neurologic/Psychiatric: Reports: no symptoms Endocrine: Reports: no symptoms Hematologic/Lymphatic: Reports: no symptoms Allergies: Coded Allergies: CIPROFLOXACIN (Verified Allergy, Unknown, RASH, 01/17/11) IODINE (Verified Allergy, Unknown, 09/20/10) IV DYE, IODINE CONTAINING (Verified Allergy, Unknown, SHOCK, 01/17/11) PENICILLINS (Verified Allergy, Unknown, 09/20/10) SULFA (SULFONAMIDE ANTIBIOTICS) (Verified Allergy, Unknown, RASH, 01/17/11) All Systems: reviewed and negative except above Subjective having formed stools now. c/o abd pain- chronic. no fever or chills. no melena or brbpr Objective Last 24 Hour Vital Signs Date Time Temp Pulse Resp B/P (MAP) Pulse Ox O2 Delivery O2 Flow Rate FiO2 03/25/19 04:44 97.7 57 18 126/68 (87) 93 03/25/19 00:00 98.2 65 18 153/61 (91) 93 03/24/19 21:00 Room Air 03/24/19 20:00 97.8 65 18 160/94 (116) 95 03/24/19 19:59 160/94 03/24/19 16:00 98.0 60 18 149/62 (91) 94 03/24/19 15:38 98.0 03/24/19 13:00 149/65 (93) 03/24/19 11:53 169/79 03/24/19 11:50 98.0 69 18 169/79 (109) 97 03/24/19 09:00 Room Air 03/24/19 08:33 60 140/75 03/24/19 08:33 60 140/75 03/24/19 08:00 98.7 60 18 140/75 (96) 97 Intake and Output 03/24/19 03/25/19 19:00 07:00 Intake Total 1643 ml 1000 ml Balance 1643 ml 1000 ml Intake Oral 700 ml 100 ml IV Total 943 ml 900 ml # Voids 4 4 Laboratory Tests 03/24/19 17:50: Stool Occult Blood [Pending] 03/25/19 05:20: White Blood Count [Pending], Red Blood Count [Pending], Hemoglobin [Pending], Hematocrit [Pending], Mean Corpuscular Volume [Pending], Mean Corpuscular Hemoglobin [Pending], Mean Corpuscular Hemoglobin Concent [Pending], Red Cell Distribution Width [Pending], Platelet Count [Pending], Mean Platelet Volume [ Pending], Neutrophils (%) (Auto) [Pending], Lymphocytes (%) (Auto) [Pending], Monocytes (%) (Auto) [Pending], Eosinophils (%) (Auto) [Pending], Basophils (%) (Auto) [Pending], Iron Level [Pending], Unsaturated Iron Binding [Pending] Height (Feet): 4 Height (Inches): 10.00 Weight (Pounds): 142 Objective General Appearance: WD/WN, alert Neck: supple Cardiovascular: normal rate Respiratory/Chest: chest wall non-tender, lungs clear, normal breath sounds Abdomen: normal bowel sounds, non tender, soft, no organomegaly Edema: no edema noted Arm (L), no edema noted Arm (R), no edema noted Leg (L), no edema noted Leg (R), no edema noted Pedal (L), no edema noted Pedal (R), no edema noted Generalized Neurologic: manager maritime II-XII grossly normal, no motor/sensory deficits, alert, oriented x 3, responsive Brian Fernandez MD Mar 25, 2019 07:27
--- NOTE | 2019-03-25 07:30 | NUR ---
HAND-OFF: Report given to ARLET Medina. Round is done.
[2019-03-25 07:34] LABS: BASOPHILS % (AUTO) 1.4 % (0.0-2.0); EOSINOPHILS % (AUTO) 5.6 % (0.0-3.0); HEMOGLOBIN 9.7 G/DL (12.0-16.0); LYMPHOCYTES % (AUTO) 43.6 % (20.0-45.0); MEAN CORPUSCULAR VOLUME 93 FL (80-99); NEUTROPHILS % (AUTO) 37.3 % (45.0-75.0); PLATELET COUNT 121 K/UL (150-450); RED BLOOD COUNT 3.02 M/UL (4.20-5.40); RED CELL DISTRIBUTION WIDTH 12.9 % (11.6-14.8); WHITE BLOOD COUNT 5.7 K/UL (4.8-10.8)
--- NOTE | 2019-03-25 07:35 | NUR ---
NURSE NOTES: Pt a/o x 4, in bed. Lt upper arm IV is patent. Denies any pain. Bed in lowest position, call light within reach. Will continue to monitor.
[2019-03-25 08:00] VITALS: BP 180/73
[2019-03-25 08:00] LABS: % IRON SATURATION 26 % (15-50); IRON 50 ug/dL (50-175); TOTAL IRON BINDING CAPACITY 194 ug/dL (250-450)
[2019-03-25] MEDS: Metoprolol Succinate XL 50mg tab ORAL SCH (08:39)
[2019-03-25] MEDS: Aspirin Baby 81mg ORAL SCH (08:39)
[2019-03-25] MEDS: Heparin 5000 units/ml inj SUBQ SCH ×2 (09:00→21:00)
[2019-03-25] MEDS ORDERED: Nulytely 4L ORAL ONE ×2 (10:00→16:00)
--- NOTE | 2019-03-25 10:44 | GI Progress Note ---
Assessment/Plan Problems: (1) Diarrhea ICD Codes: R19.7 - Diarrhea, unspecified SNOMED: 46138655 (2) Dehydration ICD Codes: E86.0 - Dehydration SNOMED: 12226324 (3) Abdominal pain ICD Codes: R10.9 - Unspecified abdominal pain SNOMED: 05406149 (4) Anemia ICD Codes: D64.9 - Anemia, unspecified SNOMED: 710030687 Status: stable Status Narrative Discussed with Dr. Arreguin. Assessment/Plan Plan for EGD and colonoscopy tomorrow to evaluate diarrhea and anemia Maintain the patient clear liquid diet, n.p.o. at midnight Monitor H&H, prn transfusions OB stool collected, pending read ppi will follow with additional recommendations post procedure The patient was seen and examined at bedside and all new and available data was reviewed in the patients chart. I agree with the above findings, impression and plan. (Patient seen earlier today. Signature stamp does not reflect patient encounter time.). - Rodney Arreguin MD Subjective Gastrointestinal/Abdominal: Reports: no symptoms Objective Last 24 Hour Vital Signs Date Time Temp Pulse Resp B/P (MAP) Pulse Ox O2 Delivery O2 Flow Rate FiO2 03/25/19 08:39 180/73 03/25/19 08:39 53 180/73 03/25/19 08:39 53 180/73 03/25/19 08:00 97.6 53 18 180/73 (108) 96 03/25/19 04:44 97.7 57 18 126/68 (87) 93 03/25/19 00:00 98.2 65 18 153/61 (91) 93 03/24/19 21:00 Room Air 03/24/19 20:00 97.8 65 18 160/94 (116) 95 03/24/19 19:59 160/94 03/24/19 16:00 98.0 60 18 149/62 (91) 94 03/24/19 15:38 98.0 03/24/19 13:00 149/65 (93) 03/24/19 11:53 169/79 03/24/19 11:50 98.0 69 18 169/79 (109) 97 Intake and Output 03/24/19 03/25/19 19:00 07:00 Intake Total 1643 ml 1300 ml Balance 1643 ml 1300 ml Intake Oral 700 ml 100 ml IV Total 943 ml 1200 ml # Voids 4 4 Laboratory Tests Test 03/24/19 17:50 03/25/19 05:20 Stool Occult Blood Pending White Blood Count 5.7 K/UL (4.8-10.8) Red Blood Count 3.02 M/UL (4.20-5.40) L Hemoglobin 9.7 G/DL (12.0-16.0) L Hematocrit 28.0 % (37.0-47.0) L Mean Corpuscular Volume 93 FL (80-99) Mean Corpuscular Hemoglobin 32.2 PG (27.0-31.0) H Mean Corpuscular Hemoglobin Concent 34.7 G/DL (32.0-36.0) Red Cell Distribution Width 12.9 % (11.6-14.8) Platelet Count 121 K/UL (150-450) L Mean Platelet Volume 6.3 FL (6.5-10.1) L Neutrophils (%) (Auto) 37.3 % (45.0-75.0) L Lymphocytes (%) (Auto) 43.6 % (20.0-45.0) Monocytes (%) (Auto) 12.0 % (1.0-10.0) H Eosinophils (%) (Auto) 5.6 % (0.0-3.0) H Basophils (%) (Auto) 1.4 % (0.0-2.0) Iron Level 50 ug/dL (50-175) Total Iron Binding Capacity 194 ug/dL (250-450) L Percent Iron Saturation 26 % (15-50) Unsaturated Iron Binding 144 ug/dL (112-346) Height (Feet): 4 Height (Inches): 10.00 Weight (Pounds): 142 General Appearance: WD/WN, no apparent distress, alert Cardiovascular: normal rate Respiratory/Chest: normal breath sounds, no respiratory distress Abdominal Exam: normal bowel sounds, non tender, soft Extremities: normal range of motion, non-tender Sukhdev Arrington NP Mar 25, 2019 10:44
--- NOTE | 2019-03-25 11:07 | NUR ---
NURSE NOTES: Dr. Fernandez ordered PICC line placement. Noted and carried out.
[2019-03-25 12:00] VITALS: BP 166/66
[2019-03-25 16:00] VITALS: BP 152/67
[2019-03-25] MEDS ORDERED: Bisacodyl EC 5mg tab ORAL SCH (16:00)
--- NOTE | 2019-03-25 19:15 | NUR ---
NURSE NOTES: Receive a report from ARLET Paul. Round is done. Pt is awake and alert. No acute distress noted. Came from bathroom for bowel preparation for colonoscopy tomorrow. Will continue to monitor. Call light within reach.
--- NOTE | 2019-03-25 19:36 | NUR ---
HAND-OFF: Report given to ARLET Cr.
--- NOTE | 2019-03-25 19:45 | NUR ---
NURSE NOTES: Planning to have EGD and Colonoscopy tomorrow. Pt has been bowel preparation for test. Still noted stool residues. Encourage oral hydration until midnight. Call light within reach and bedside comodo is close to pt. Will continue to monitor.
[2019-03-25 20:00] VITALS: BP 144/57
[2019-03-25] MEDS ORDERED: Fleet's Enema 133ml RECTAL SCH (23:00)
[2019-03-26] VITALS (11 sets, daily range): BP systolic 144–173; BP diastolic 57–78
--- NOTE | 2019-03-26 02:30 | Progress Note ---
DATE: 03/23/2019 CARDIOLOGY PROGRESS NOTE Late entry. SUBJECTIVE: Still with abdominal discomfort. Still with nausea, but no vomiting. No diarrhea. OBJECTIVE: VITAL SIGNS: Blood pressure 155/77, heart rate 62, and respiratory rate 18. LUNGS: Clear. CARDIAC: Regular. Normal S1 and S2 with a fourth heart sound. ABDOMEN: Soft. There is still mild tender in the lower quadrants. EXTREMITIES: With no edema. LABORATORY DATA: Reviewed. IMPRESSION: 1. Recurring diarrhea. 2. Acute colitis. 3. Hypomagnesemia. 4. Hypertensive cardiomyopathy. PLAN: 1. Hydration. 2. Magnesium replacement as needed. 3. Antimicrobials. 4. Titrate anti-failure regimen and withhold parameters in the setting of significant GI volume losses. Eder Mariano M.D. DR: NICOLE JOB#: [id number] CC:
[2019-03-26] MEDS: HYDROmorphone 1mg/ml Carpuject IVP PRN ×7 (02:32→22:51)
[2019-03-26] MEDS: NovoLOG Insulin Flexpen SUBQ SCH ×5 (05:51→20:52)
--- NOTE | 2019-03-26 06:40 | NUR ---
NURSE NOTES: Receive a call from GI dental laboratory technician apprenticeBrigitte and report pt's condition and consent form.
[2019-03-26 06:44] LABS: ANION GAP 10 mmol/L (5-15); BLOOD UREA NITROGEN 11 mg/dL (7-18); CALCIUM 9.3 MG/DL (8.5-10.1); CARBON DIOXIDE 25 MMOL/L (21-32); CHLORIDE 108 MMOL/L (98-107); CREATININE 0.8 MG/DL (0.55-1.30); POTASSIUM 4.1 MMOL/L (3.5-5.1); SODIUM 143 MMOL/L (136-145)
[2019-03-26 06:54] LABS: INR 0.9 (0.9-1.1)
--- NOTE | 2019-03-26 06:55 | NUR ---
NURSE NOTES: Pt left to EGD and colonoscopy via gurney. Pt is alert and awake, orientation x4. No acute distress noted. Done emotional support.
[2019-03-26 07:03] LABS: BASOPHILS % (AUTO) 1.1 % (0.0-2.0); HEMATOCRIT 30.8 % (37.0-47.0); HEMOGLOBIN 10.2 G/DL (12.0-16.0); LYMPHOCYTES % (AUTO) 36.7 % (20.0-45.0); MEAN CORPUSCULAR VOLUME 96 FL (80-99); MONOCYTES % (AUTO) 12.9 % (1.0-10.0); NEUTROPHILS % (AUTO) 44.4 % (45.0-75.0); PLATELET COUNT 137 K/UL (150-450); RED BLOOD COUNT 3.22 M/UL (4.20-5.40); RED CELL DISTRIBUTION WIDTH 13.7 % (11.6-14.8); WHITE BLOOD COUNT 6.3 K/UL (4.8-10.8)
--- NOTE | 2019-03-26 07:06 | General Progress Note ---
Assessment/Plan Status: stable Assessment/Plan: Assessment - abdominal wall hernias - anemia, with OB (-) stools x 1 - diarrhea x 1 month - h/o diverticulosis - h/o gallstones Recommendations - monitor for pain - await O&P - Follow CBC - EGD/Colon today Subjective Allergies: Coded Allergies: CIPROFLOXACIN (Verified Allergy, Unknown, RASH, 01/17/11) IODINE (Verified Allergy, Unknown, 09/20/10) IV DYE, IODINE CONTAINING (Verified Allergy, Unknown, SHOCK, 01/17/11) PENICILLINS (Verified Allergy, Unknown, 09/20/10) SULFA (SULFONAMIDE ANTIBIOTICS) (Verified Allergy, Unknown, RASH, 01/17/11) Subjective Seen in GI lab NPO for EGD/Colon c/o abd pain diarrhea for 1 month Objective Last 24 Hour Vital Signs Date Time Temp Pulse Resp B/P (MAP) Pulse Ox O2 Delivery O2 Flow Rate FiO2 03/26/19 04:50 97.9 54 18 166/59 (94) 96 03/26/19 00:47 167/76 03/26/19 00:45 97.8 61 18 167/76 (106) 99 03/25/19 21:00 Room Air 03/25/19 20:00 98.3 57 18 144/57 (86) 93 03/25/19 16:00 98.0 61 18 152/67 (95) 97 03/25/19 12:21 166/66 03/25/19 12:00 98.2 58 18 166/66 (99) 96 03/25/19 09:00 Room Air 03/25/19 08:39 180/73 03/25/19 08:39 53 180/73 03/25/19 08:39 53 180/73 03/25/19 08:00 97.6 53 18 180/73 (108) 96 Intake and Output 03/25/19 03/26/19 18:59 06:59 Intake Total 1000 ml 100 ml Balance 1000 ml 100 ml Intake Oral 900 ml 100 ml IV Total 100 ml # Voids 4 6 # Bowel Movements 20 Laboratory Tests 03/25/19 18:00: Stool Occult Blood [Pending] 03/26/19 05:35: White Blood Count 6.3, Red Blood Count 3.22L, Hemoglobin 10.2L, Hematocrit 30.8L , Mean Corpuscular Volume 96, Mean Corpuscular Hemoglobin 31.8H, Mean Corpuscular Hemoglobin Concent 33.2, Red Cell Distribution Width 13.7, Platelet Count 137L, Mean Platelet Volume 6.9, Neutrophils (%) (Auto) 44.4L, Lymphocytes (%) (Auto) 36.7, Monocytes (%) (Auto) 12.9H, Eosinophils (%) (Auto) 5.0H, Basophils (%) (Auto) 1.1, Prothrombin Time 10.0, Prothromb Time International Ratio 0.9, Activated Partial Thromboplast Time 27, Sodium Level 143, Potassium Level 4.1, Chloride Level 108H, Carbon Dioxide Level 25, Anion Gap 10, Blood Urea Nitrogen 11, Creatinine 0.8, Estimat Glomerular Filtration Rate , Glucose Level 213H, Calcium Level 9.3 Height (Feet): 4 Height (Inches): 0.83 Weight (Pounds): 142 Objective WDWN WW NCAT supple CTA RRR abd soft, obese, mild diffuse TTP, (+) multiple large abd wall hernias no edema non focal Yudy Atkins MD Mar 26, 2019 07:06
--- NOTE | 2019-03-26 07:30 | NUR ---
HAND-OFF: Report given to ARLET Fisher.
[2019-03-26] MEDS ORDERED: Midazolam 2mg/2ml Inj ONE (07:36)
[2019-03-26] MEDS ORDERED: Alfentanil 2ml Inj ONE (07:37)
[2019-03-26] MEDS ORDERED: LR 1000ml ONE (07:43)
--- NOTE | 2019-03-26 07:43 | Pre-Procedure Note/Attestation ---
Pre-Procedure Note/Attestation Complete Prior to Procedure Planned Procedure: not applicable Procedure Narrative: EGD Colon Indications for Procedure Pre-Operative Diagnosis: Anemia Attestation I attest that I discussed the nature of the procedure; its benefits; risks and complications; and alternatives (and the risks and benefits of such alternatives ), prior to the procedure, with the patient (or the patient's legal service support representative). I attest that, if there was a reasonable possibility of needing a blood transfusion, the patient (or the patient's legal service support representative) was given the [facility] standardized written summary, pursuant to the [place] [employer] Blood Safety Act ([place] Health and Safety Code # 1645, as amended). I attest that I re-evaluated the patient just prior to the surgery and that there has been no change in the patient's H&P, except as documented below: Yudy Atkins MD Mar 26, 2019 07:43
--- NOTE | 2019-03-26 07:45 | NUR ---
NURSE NOTES: Received report from Go RN, pt out of the floor for: Colonoscopy and Endoscopy. I will f/u as needed.
--- NOTE | 2019-03-26 07:58 | 48 Hour Post Anesthesia Eval ---
Post Anesthesia Evaluation Procedure: EGD/Colonoscopy Date of Evaluation: Mar 26, 2019 Time of Evaluation: 10:53 Blood Pressure Systolic: 171 0: 78 Pulse Rate: 62 Respiratory Rate: 18 Temperature (Fahrenheit): 98.2 O2 Sat by Pulse Oximetry: 99 Airway: patent Nausea: No Vomiting: No Pain Intensity: 2 Hydration Status: adequate Cardiopulmonary Status: Stable Mental Status/LOC: patient returned to baseline Follow-up Care/Observations: o Post-Anesthesia Complications: o Follow-up care needed: N/A Moisés Schroeder MD Mar 26, 2019 07:58
--- NOTE | 2019-03-26 08:13 | Anethesia Preoperative Eval ---
Anesthesia Pre-op PMH/ROS General Date of Evaluation: Mar 26, 2019 Time of Evaluation: 07:31 Anesthesiologist: Alvin ASA Score: ASA 4 Mallampati Score Class I : Soft palate, uvula, fauces, pillars visible Class II: Soft palate, uvula, fauces visible Class III: Soft palate, base of uvula visible Class IV: Only hard plate visible Mallampati Classification: Class III Surgeon: Wilbert Anesthesia History: none Family History: no anesthesia problems Allergies: Coded Allergies: CIPROFLOXACIN (Verified Allergy, Unknown, RASH, 01/17/11) IODINE (Verified Allergy, Unknown, 09/20/10) IV DYE, IODINE CONTAINING (Verified Allergy, Unknown, SHOCK, 01/17/11) PENICILLINS (Verified Allergy, Unknown, 09/20/10) SULFA (SULFONAMIDE ANTIBIOTICS) (Verified Allergy, Unknown, RASH, 01/17/11) Medications: see eMAR Patient NPO?: Yes Past Medical History Cardiovascular: Reports: HTN, CAD - CHF, MT, other - HL Pulmonary: Reports: other - Bronchitis Gastrointestinal/Genitourinary: Reports: GERD Neurologic/Psychiatric: Reports: CVA Endocrine: Reports: DM Hematology/Immune: Reports: anemia Other: obesity - BMI 44 PSxH Narrative: Other Sxs Anesthesia Pre-op Phys. Exam Physician Exam Last Vital Signs Date Time Temp Pulse Resp B/P (MAP) Pulse Ox O2 Delivery O2 Flow Rate FiO2 03/26/19 04:50 97.9 54 18 166/59 (94) 96 03/25/19 21:00 Room Air Constitutional: NAD Neurologic: CN 2-12 intact Cardiovascular: RRR Respiratory: CTA Gastrointestinal: S/NT/ND Airway Exam Mallampati Score: Class II MO: limited ROM: limited Teeth: missing Anesthesia Pre-op A/P Labs Hematology Test 03/26/19 05:35 White Blood Count 6.3 K/UL (4.8-10.8) Red Blood Count 3.22 M/UL (4.20-5.40) L Hemoglobin 10.2 G/DL (12.0-16.0) L Hematocrit 30.8 % (37.0-47.0) L Mean Corpuscular Volume 96 FL (80-99) Mean Corpuscular Hemoglobin 31.8 PG (27.0-31.0) H Mean Corpuscular Hemoglobin Concent 33.2 G/DL (32.0-36.0) Red Cell Distribution Width 13.7 % (11.6-14.8) Platelet Count 137 K/UL (150-450) L Mean Platelet Volume 6.9 FL (6.5-10.1) Neutrophils (%) (Auto) 44.4 % (45.0-75.0) L Lymphocytes (%) (Auto) 36.7 % (20.0-45.0) Monocytes (%) (Auto) 12.9 % (1.0-10.0) H Eosinophils (%) (Auto) 5.0 % (0.0-3.0) H Basophils (%) (Auto) 1.1 % (0.0-2.0) Coagulation Test 03/26/19 05:35 Prothrombin Time 10.0 SEC (9.30-11.50) Prothromb Time International Ratio 0.9 (0.9-1.1) Activated Partial Thromboplast Time 27 SEC (23-33) Chemistry Test 03/26/19 05:35 Sodium Level 143 MMOL/L (136-145) Potassium Level 4.1 MMOL/L (3.5-5.1) Chloride Level 108 MMOL/L (98-107) H Carbon Dioxide Level 25 MMOL/L (21-32) Anion Gap 10 mmol/L (5-15) Blood Urea Nitrogen 11 mg/dL (7-18) Creatinine 0.8 MG/DL (0.55-1.30) Estimat Glomerular Filtration Rate mL/min (>60) Glucose Level 213 MG/DL (74-106) H Calcium Level 9.3 MG/DL (8.5-10.1) Risk Assessment & Plan Assessment: ASA 4 Plan: TIVA Status Change Before Surgery: Moisés Barrientos MD Mar 26, 2019 08:13
--- NOTE | 2019-03-26 08:14 | Immediate Post-Op Evaluation ---
Immediate Post-Op Evalulation Immediate Post-Op Evalulation Procedure: EGD/Colonoscopy Date of Evaluation: Mar 26, 2019 Time of Evaluation: 08:44 IV Fluids: 200 NS Blood Products: 0 Estimated Blood Loss: 4 Urinary Output: 0 Blood Pressure Systolic: 165 Blood Pressure Diastolic: 62 Pulse Rate: 65 Respiratory Rate: 16 O2 Sat by Pulse Oximetry: 100 Temperature (Fahrenheit): 97.9 Pain Score (1-10): 1 Nausea: No Vomiting: No Complications 0 Patient Status: awake, reacts, patent, extubated, none Hydration Status: adequate Moisés Schroeder MD Mar 26, 2019 08:14
[2019-03-26] MEDS: Heparin 5000 units/ml inj SUBQ SCH ×2 (09:00→20:47)
[2019-03-26] MEDS: Metoprolol Succinate XL 50mg tab ORAL SCH (10:10)
[2019-03-26] MEDS: Aspirin Baby 81mg ORAL SCH (10:11)
--- NOTE | 2019-03-26 10:23 | General Progress Note ---
Assessment/Plan Problem List: (1) Uncontrolled diabetes mellitus ICD Codes: E11.65 - Type 2 diabetes mellitus with hyperglycemia SNOMED: 182585298 Status: stable, progressing Assessment/Plan: cont current rx ivf pain rx PPI await endoscopy results d/w pt and dtr x 10 min Subjective ROS Limited/Unobtainable: No Constitutional: Reports: malaise, weakness HEENT: Reports: no symptoms Cardiovascular: Reports: no symptoms Respiratory: Reports: no symptoms Gastrointestinal/Abdominal: Reports: abdominal pain, diarrhea Genitourinary: Reports: no symptoms Neurologic/Psychiatric: Reports: no symptoms Endocrine: Reports: no symptoms Hematologic/Lymphatic: Reports: anemia Allergies: Coded Allergies: CIPROFLOXACIN (Verified Allergy, Unknown, RASH, 01/17/11) IODINE (Verified Allergy, Unknown, 09/20/10) IV DYE, IODINE CONTAINING (Verified Allergy, Unknown, SHOCK, 01/17/11) PENICILLINS (Verified Allergy, Unknown, 09/20/10) SULFA (SULFONAMIDE ANTIBIOTICS) (Verified Allergy, Unknown, RASH, 01/17/11) All Systems: reviewed and negative except above Subjective c/o abd pain. s/p endoscopy, no results back yet. no cp/sob. no fever or chills. Objective Last 24 Hour Vital Signs Date Time Temp Pulse Resp B/P (MAP) Pulse Ox O2 Delivery O2 Flow Rate FiO2 03/26/19 10:10 94 137/72 03/26/19 10:10 94 137/72 03/26/19 09:12 54 16 159/57 97 Nasal Cannula 2 03/26/19 09:05 97.6 57 17 171/65 100 Simple Mask 6 03/26/19 08:55 53 16 173/61 100 Simple Mask 6 03/26/19 08:45 53 16 162/58 100 Simple Mask 6 03/26/19 08:40 59 15 160/64 100 Simple Mask 6 03/26/19 08:37 97.9 65 16 171/78 100 Simple Mask 6 03/26/19 08:37 62 18 99 03/26/19 08:36 65 16 100 03/26/19 04:50 97.9 54 18 166/59 (94) 96 03/26/19 00:47 167/76 03/26/19 00:45 97.8 61 18 167/76 (106) 99 9/2/19 21:00 Room Air 03/25/19 20:00 98.3 57 18 144/57 (86) 93 03/25/19 16:00 98.0 61 18 152/67 (95) 97 03/25/19 12:21 166/66 03/25/19 12:00 98.2 58 18 166/66 (99) 96 Intake and Output 03/25/19 03/26/19 19:00 07:00 Intake Total 900 ml 100 ml Balance 900 ml 100 ml Intake Oral 900 ml 100 ml # Voids 4 6 # Bowel Movements 20 Laboratory Tests 03/25/19 18:00: Stool Occult Blood [Pending] 03/26/19 05:35: White Blood Count 6.3, Red Blood Count 3.22L, Hemoglobin 10.2L, Hematocrit 30.8L , Mean Corpuscular Volume 96, Mean Corpuscular Hemoglobin 31.8H, Mean Corpuscular Hemoglobin Concent 33.2, Red Cell Distribution Width 13.7, Platelet Count 137L, Mean Platelet Volume 6.9, Neutrophils (%) (Auto) 44.4L, Lymphocytes (%) (Auto) 36.7, Monocytes (%) (Auto) 12.9H, Eosinophils (%) (Auto) 5.0H, Basophils (%) (Auto) 1.1, Prothrombin Time 10.0, Prothromb Time International Ratio 0.9, Activated Partial Thromboplast Time 27, Sodium Level 143, Potassium Level 4.1, Chloride Level 108H, Carbon Dioxide Level 25, Anion Gap 10, Blood Urea Nitrogen 11, Creatinine 0.8, Estimat Glomerular Filtration Rate , Glucose Level 213H, Calcium Level 9.3 Height (Feet): 4 Height (Inches): 0.83 Weight (Pounds): 142 Objective General Appearance: WD/WN, alert Neck: supple Cardiovascular: normal rate Respiratory/Chest: chest wall non-tender, lungs clear, normal breath sounds Abdomen: normal bowel sounds, non tender, soft, no organomegaly Edema: no edema noted Arm (L), no edema noted Arm (R), no edema noted Leg (L), no edema noted Leg (R), no edema noted Pedal (L), no edema noted Pedal (R), no edema noted Generalized Neurologic: still cleaner II-XII grossly normal, no motor/sensory deficits, alert, oriented x 3, responsive [place],Brian M. MD Mar 26, 2019 10:23
--- NOTE | 2019-03-26 11:44 | NUR ---
CASE MANAGEMENT:REVIEW 03/26/19 SI: UNCONTROLLED DM. ACUTE COLITIS STILL WITH ABDOMINAL PAIN AND NAUSEA 97.9 62 18 171/78 100% ON RA H/H-10.2/30.8 PLT-137 GLUCOSE+213 IS: IV MAG SULFATE Q1HRS X2 BAGS IVF@100/HR NORVASC PO QD ASA PO QD TOPROL XL PO QD HEPARIN SQ Q12 IV DILAUDID Q3HRS PRN SS INSULIN AC+HS : MED/SURG STATUS 3 EAST DCP: FROM HOME PLAN: SCHEDULED FOR EGD TODAY
[2019-03-26] MEDS ORDERED: Heparin1,000 units/500ml Premix(Conc:2 units/ml) IV PRN (14:45)
[2019-03-26] MEDS ORDERED: Lidocaine 1% Plain 30 ml INJ PRN (14:45)
--- NOTE | 2019-03-26 18:00 | NUR ---
NURSE NOTES: LATE ENTRY: During medication time, RN take out Dilaudid 1mg IVP but by mistake RN discarded in the sharpener container. RN called pharmacy to notify s/w Violeta pharmacist who instructed me to wasted medication and to document the event. Sesar NICE, charge nurse is aware and witnessed. I will f/u as need
--- NOTE | 2019-03-26 19:32 | NUR ---
HAND-OFF: Report given to Ashley RN, pt in stable condition. - During my shift pt have multiple watery bowel movements.
--- NOTE | 2019-03-26 19:32 | NUR ---
NURSE NOTES: Received report from ARLET Fisher. Patient aaox4, breathing unlabored without distress, discomfort, or sob. IV noted on left upper arm intact and running fluid as ordered. Bedside commode and walker noted at the bedside. Bed placed at the lowest with alarm, brake, and side rails up for safety. call light placed within reach. will continue to monitor and provide care as ordered.
[2019-03-26] MEDS ORDERED: Dyna-Hex 2% Top Sol 2oz TOPIC SCH (20:00)
--- NOTE | 2019-03-26 22:45 | Progress Note ---
DATE: 03/25/2019 CARDIOLOGY PROGRESS NOTE Late entry. SUBJECTIVE: Condition largely unchanged. The patient continues with diarrhea and abdominal cramps. She remains on hydration. Plans for colonoscopy in progress and delayed due to holiday. OBJECTIVE: VITAL SIGNS: Blood pressure 152/67, pulse 61, respirations 18. LUNGS: Clear. CARDIAC: Regular. No S3. ABDOMEN: Doughy and soft and mildly tender. EXTREMITIES: No edema. LABORATORIES: Noted. IMPRESSION: Condition unchanged. PLAN: 1. Titrate antihypertensives. 2. Monitor volume status and cardiorenal parameters. 3. Adjust IV fluids. 4. Replace electrolytes including potassium and magnesium. 5. Iron supplementation to follow. 6. Await diagnostic panendoscopy. 7. Trend natriuretic peptide assay. Eder Mariano M.D. DR: ALEKS JOB#: [id number] CC:
--- NOTE | 2019-03-26 23:00 | Progress Note ---
DATE: 03/26/2019 CARDIOLOGY PROGRESS NOTE SUBJECTIVE: The patient is scheduled for panendoscopy today. Blood pressure parameters are slightly elevated. She has been NPO. She denies shortness of breath. PHYSICAL EXAMINATION: VITAL SIGNS: Blood pressure 166/59, pulse 54, respirations 18. LUNGS: Clear. CARDIAC: Regular. Normal S1, S2. ABDOMEN: Soft and doughy with no guarding or rebound. EXTREMITIES: There is no edema. IMPRESSION: 1. Diarrhea. 2. Colitis. 3. Hypovolemia and dehydration. 4. Hypertensive heart disease. 5. Acute on chronic diastolic congestive heart failure. 6. Sinus bradycardia, on beta-blockers. 7. Hypomagnesemia. 8. Hypokalemia. PLAN: 1. Await results of panendoscopy. 2. Review antihypertensive dosing and adjust accordingly once medications resumed. 3. Reassess beta-amari dosing as well based on bradycardia. 4. Adjust IV fluids. 5. Trend natriuretic peptide assay. 6. DVT prophylaxis. Eder Mariano M.D. DR: ALEKS JOB#: [id number] CC:
--- NOTE | 2019-03-26 23:45 | Progress Note ---
DATE: 03/24/2019 CARDIOLOGY PROGRESS NOTE Late entry for 03/24/2019. SUBJECTIVE: The patient continues to have abdominal cramps and diarrhea. No shortness of breath. No melena or bright red blood per rectum. OBJECTIVE: VITAL SIGNS: Blood pressure 140/75, pulse 60, and respirations 18. LUNGS: Clear. CARDIAC: Regular. Normal S1, S2 with no new murmur. ABDOMEN: Slightly distended and diffusely tender. No guarding or rebound. EXTREMITIES: There is no edema. LABORATORY DATA: White count 8.1, hemoglobin 10.5. Sodium 142, potassium 3.4. Magnesium 1.4. Albumin 2.7. IMPRESSION: 1. Colitis. 2. Moderate protein-calorie malnutrition. 3. Hypomagnesemia. 4. Hypokalemia. 5. Hypertensive cardiomyopathy. 6. Chronic diastolic congestive heart failure. PLAN: 1. Continue hydration, antidiarrheals, and empiric antimicrobials. 2. Replace electrolytes including magnesium. 3. GI plan for colonoscopy and endoscopy noted. Eder Mariano M.D. DR: ROBB JOB#: [id number] CC:
[2019-03-27] VITALS (7 sets, daily range): BP systolic 121–176; BP diastolic 57–80
[2019-03-27] MEDS: HYDROmorphone 1mg/ml Carpuject IVP PRN ×5 (03:01→20:38)
[2019-03-27] MEDS: NovoLOG Insulin Flexpen SUBQ SCH ×4 (06:12→20:55)
[2019-03-27 06:17] LABS: HEMATOCRIT 30.7 % (37.0-47.0); HEMOGLOBIN 9.9 G/DL (12.0-16.0); MEAN CORPUSCULAR VOLUME 97 FL (80-99); PLATELET COUNT 97 K/UL (150-450); RED BLOOD COUNT 3.17 M/UL (4.20-5.40); RED CELL DISTRIBUTION WIDTH 13.7 % (11.6-14.8); WHITE BLOOD COUNT 7.6 K/UL (4.8-10.8)
[2019-03-27 06:38] LABS: ALANINE AMINOTRANSFERASE 9 U/L (12-78); ALBUMIN 2.5 G/DL (3.4-5.0); ALBUMIN/GLOBULIN RATIO 0.8 (1.0-2.7); ALKALINE PHOSPHATASE 117 U/L (46-116); ANION GAP 11 mmol/L (5-15); ASPARTATE AMINO TRANSFERASE 13 U/L (15-37); BILIRUBIN,TOTAL 0.5 MG/DL (0.2-1.0); BLOOD UREA NITROGEN 9 mg/dL (7-18); CARBON DIOXIDE 23 MMOL/L (21-32); CHLORIDE 107 MMOL/L (98-107); CREATININE 0.9 MG/DL (0.55-1.30); POTASSIUM 3.6 MMOL/L (3.5-5.1); SODIUM 141 MMOL/L (136-145)
--- NOTE | 2019-03-27 07:50 | NUR ---
HAND-OFF: Report given to ARLET Fisher.
--- NOTE | 2019-03-27 08:00 | NUR ---
NURSE NOTES: Received report from Minsu RN, pt a/a/o x4 laying in bed with no signs of distress or other issues at this time. pt still c/o of pain 04/02, RN will medicate as indicated per MD. call light within reach. bed in lowest position, side rales up x2. I will f/u as needed. I will f/u as needed. - plan to PICC line insertion today.
--- NOTE | 2019-03-27 08:15 | General Progress Note ---
Assessment/Plan Problem List: (1) Uncontrolled diabetes mellitus ICD Codes: E11.65 - Type 2 diabetes mellitus with hyperglycemia SNOMED: 878560290 Status: stable, progressing Assessment/Plan: cont current rx ivf dcd pain rx PPI replace mg and k await endoscopy results d/w pt and dtr x 10 min Subjective ROS Limited/Unobtainable: No Constitutional: Reports: malaise, weakness HEENT: Reports: no symptoms Cardiovascular: Reports: no symptoms Respiratory: Reports: no symptoms Gastrointestinal/Abdominal: Reports: abdominal pain, diarrhea Genitourinary: Reports: no symptoms Neurologic/Psychiatric: Reports: no symptoms Endocrine: Reports: no symptoms Hematologic/Lymphatic: Reports: no symptoms Allergies: Coded Allergies: CIPROFLOXACIN (Verified Allergy, Unknown, RASH, 01/17/11) IODINE (Verified Allergy, Unknown, 09/20/10) IV DYE, IODINE CONTAINING (Verified Allergy, Unknown, SHOCK, 01/17/11) PENICILLINS (Verified Allergy, Unknown, 09/20/10) SULFA (SULFONAMIDE ANTIBIOTICS) (Verified Allergy, Unknown, RASH, 01/17/11) All Systems: reviewed and negative except above Subjective c/o same abd pain. no fever or chills. endoscopy done- no results yet. c/o diarrhea. Objective Last 24 Hour Vital Signs Date Time Temp Pulse Resp B/P (MAP) Pulse Ox O2 Delivery O2 Flow Rate FiO2 03/27/19 06:54 156/64 (94) 03/27/19 05:11 176/76 03/27/19 04:00 97.1 68 18 176/76 (109) 97 03/27/19 00:23 172/80 03/27/19 00:00 97.8 70 18 172/80 (110) 97 03/26/19 21:00 Room Air 03/26/19 20:00 99.5 76 18 162/68 (99) 94 03/26/19 19:14 99.2 03/26/19 16:00 99.2 66 18 144/68 (93) 98 03/26/19 12:00 97.9 61 17 148/74 (98) 97 03/26/19 10:10 94 137/72 03/26/19 10:10 94 137/72 03/26/19 09:12 54 16 159/57 97 Nasal Cannula 2 03/26/19 09:05 97.6 57 17 171/65 100 Simple Mask 6 03/26/19 09:00 Room Air 03/26/19 08:55 53 16 173/61 100 Simple Mask 6 03/26/19 08:45 53 16 162/58 100 Simple Mask 6 03/26/19 08:40 59 15 160/64 100 Simple Mask 6 03/26/19 08:37 97.9 65 16 171/78 100 Simple Mask 6 03/26/19 08:37 62 18 99 03/26/19 08:36 65 16 100 Intake and Output 03/26/19 03/27/19 18:59 06:59 Intake Total 1100 ml 1200 ml Output Total 0 ml Balance 1100 ml 1200 ml Intake Oral 900 ml IV Total 200 ml 1200 ml Estimated Blood Loss 0 ml # Voids 5 10 # Bowel Movements 1 1 Laboratory Tests 03/27/19 04:50: White Blood Count 7.6, Red Blood Count 3.17L, Hemoglobin 9.9L, Hematocrit 30.7L , Mean Corpuscular Volume 97, Mean Corpuscular Hemoglobin 31.1H, Mean Corpuscular Hemoglobin Concent 32.1, Red Cell Distribution Width 13.7, Platelet Count 97L, Mean Platelet Volume 5.8L, Neutrophils (%) (Auto) , Lymphocytes (%) ( Auto) , Monocytes (%) (Auto) , Eosinophils (%) (Auto) , Basophils (%) (Auto) , Neutrophils % (Manual) [Pending], Lymphocytes % (Manual) [Pending], Platelet Estimate [Pending], Platelet Morphology [Pending], Sodium Level 141, Potassium Level 3.6, Chloride Level 107, Carbon Dioxide Level 23, Anion Gap 11, Blood Urea Nitrogen 9, Creatinine 0.9, Estimat Glomerular Filtration Rate , Glucose Level 244H, Calcium Level 9.0, Magnesium Level 1.7L, Total Bilirubin 0.5, Aspartate Amino Transf (AST/SGOT) 13L, Alanine Aminotransferase (ALT/SGPT) 9L, Alkaline Phosphatase 117H, Pro-B-Type Natriuretic Peptide 2752H, Total Protein 5.6L, Albumin 2.5L, Globulin 3.1, Albumin/Globulin Ratio 0.8L Height (Feet): 4 Height (Inches): 0.83 Weight (Pounds): 143 Objective General Appearance: WD/WN, alert Neck: supple Cardiovascular: normal rate Respiratory/Chest: chest wall non-tender, lungs clear, normal breath sounds Abdomen: normal bowel sounds, non tender, soft, no organomegaly Edema: no edema noted Arm (L), no edema noted Arm (R), no edema noted Leg (L), no edema noted Leg (R), no edema noted Pedal (L), no edema noted Pedal (R), no edema noted Generalized Neurologic: maltster II-XII grossly normal, no motor/sensory deficits, alert, oriented x 3, responsive Brian Fernandez MD Mar 27, 2019 08:15
[2019-03-27] MEDS: Aspirin Baby 81mg ORAL SCH (08:28)
[2019-03-27] MEDS: Metoprolol Succinate XL 50mg tab ORAL SCH (08:29)
--- NOTE | 2019-03-27 09:00 | NUR ---
NURSE NOTES: Called Dr. Fernandez to clarify PICC line placement. per MD to cancel PICC line placement, DC IVF and to DC heparin. RN will carry on orders. I will f/u as needed.
--- NOTE | 2019-03-27 11:26 | NUR ---
RD ASSESSMENT & RECOMMENDATIONS SEE CARE ACTIVITY FOR COMPLETE ASSESSMENT DAILY ESTIMATED NEEDS: Needs based on DM/ 49kg abw 25-30 kcals/kg 6134-2103 total kcals 1-1.5 g protein/kg 49-74 g total protein 25-30 mL/kg 5760-3167 total fluid mLs NUTRITION DIAGNOSIS: * Altered nutrition related lab values R/T diabetes as evidenced by elev BGs (244 213), POC glu (206-314) * Altered GI function R/T unknown etiology as evidenced by c/o abdominal pain, diarrhea x 1 month, EGD/colonsocpy results pending. CURRENT DIET:[facility]HO MED PO DIET RECOMMENDATIONS: CCHO LOW + LOW FIBER/LOW RESIDUE (texture as tolerated) ADDITIONAL RECOMMENDATIONS: * Standing wt for accurate CBW * A1C for eval of glycemic control * Add long acting insulin for improved BG control * Monitor lytes and hydration status closely w/ diarrhea * Monitor PO tolerance: c/o abdoinal pain + diarrhea * F/up w/ EGD/colonoscopy result
--- NOTE | 2019-03-27 19:24 | General Progress Note ---
Assessment/Plan Status: stable, progressing Assessment/Plan: Assessment - abdominal wall hernias - anemia, with OB (-) stools x 2 - diarrhea x 1 month - negative EGD/Colon for cause of diarrhea (no colitis seen ) - h/o diverticulosis - h/o gallstones Recommendations - Wean off of narcotics if feasible - wireless capsule endoscopy in am - RN to document any diarrhea - po as tolerated (clears today for capsule test in am) Subjective Allergies: Coded Allergies: CIPROFLOXACIN (Verified Allergy, Unknown, RASH, 01/17/11) IODINE (Verified Allergy, Unknown, 09/20/10) IV DYE, IODINE CONTAINING (Verified Allergy, Unknown, SHOCK, 01/17/11) PENICILLINS (Verified Allergy, Unknown, 09/20/10) SULFA (SULFONAMIDE ANTIBIOTICS) (Verified Allergy, Unknown, RASH, 01/17/11) Subjective No diarrhea since yesterday tolerating PO getting multiple doses of narcotics appears comfortable on my arrival Objective Last 24 Hour Vital Signs Date Time Temp Pulse Resp B/P (MAP) Pulse Ox O2 Delivery O2 Flow Rate FiO2 03/27/19 16:49 97.7 03/27/19 16:00 98.1 57 18 159/63 (95) 95 03/27/19 12:00 97.7 56 20 155/60 (91) 94 03/27/19 09:00 Room Air 03/27/19 08:29 63 121/57 03/27/19 08:28 63 121/57 03/27/19 08:00 97.6 63 18 121/57 (78) 94 03/27/19 06:54 156/64 (94) 03/27/19 05:11 176/76 03/27/19 04:00 97.1 68 18 176/76 (109) 97 03/27/19 00:23 172/80 03/27/19 00:00 97.8 70 18 172/80 (110) 97 03/26/19 21:00 Room Air 03/26/19 20:00 99.5 76 18 162/68 (99) 94 Intake and Output 03/26/19 03/27/19 18:59 06:59 Intake Total 1100 ml 1200 ml Output Total 0 ml Balance 1100 ml 1200 ml Intake Oral 900 ml IV Total 200 ml 1200 ml Estimated Blood Loss 0 ml # Voids 5 10 # Bowel Movements 1 1 Laboratory Tests 03/27/19 04:50: White Blood Count 7.6, Red Blood Count 3.17L, Hemoglobin 9.9L, Hematocrit 30.7L , Mean Corpuscular Volume 97, Mean Corpuscular Hemoglobin 31.1H, Mean Corpuscular Hemoglobin Concent 32.1, Red Cell Distribution Width 13.7, Platelet Count 97L, Mean Platelet Volume 5.8L, Neutrophils (%) (Auto) , Lymphocytes (%) ( Auto) , Monocytes (%) (Auto) , Eosinophils (%) (Auto) , Basophils (%) (Auto) , Differential Total Cells Counted 100, Neutrophils % (Manual) 56, Lymphocytes % ( Manual) 28, Monocytes % (Manual) 7, Eosinophils % (Manual) 9H, Basophils % ( Manual) 0, Band Neutrophils 0, Platelet Estimate DecreasedL, Platelet Morphology Normal, Hypochromasia 2+, Anisocytosis 1+, Sodium Level 141, Potassium Level 3.6, Chloride Level 107, Carbon Dioxide Level 23, Anion Gap 11, Blood Urea Nitrogen 9, Creatinine 0.9, Estimat Glomerular Filtration Rate , Glucose Level 244H, Calcium Level 9.0, Magnesium Level 1.7L, Total Bilirubin 0.5 , Aspartate Amino Transf (AST/SGOT) 13L, Alanine Aminotransferase (ALT/SGPT) 9L , Alkaline Phosphatase 117H, Pro-B-Type Natriuretic Peptide 2752H, Total Protein 5.6L, Albumin 2.5L, Globulin 3.1, Albumin/Globulin Ratio 0.8L Height (Feet): 4 Height (Inches): 0.83 Weight (Pounds): 143 Objective WDWN WW NCAT supple CTA RRR abd soft, obese, mild diffuse TTP, (+) multiple large abd wall hernias no edema non focal Yudy Atkins MD Mar 27, 2019 19:24
--- NOTE | 2019-03-27 19:33 | NUR ---
HAND-OFF: Report given to Angie NICE, pt in stable condition. - NO diarrhea noted during my shift. - consent signed for tomorrow's procedure - incoming RN is aware.
--- NOTE | 2019-03-27 19:34 | NUR ---
NURSE NOTES: Received report & pt from ARLET Fisher. Pt lying in bed, a&ox4, in room air. No s/s of acute distress & c/o 10/10 pain. Will give PRN pain med when due & pt verbalized understanding. Skin intact. IV site intact & S/L'd. Bed in lowest position, call light within reach. Will continue to monitor.
[2019-03-28 00:59] VITALS: BP 173/66
[2019-03-28] MEDS: HYDROmorphone 1mg/ml Carpuject IVP PRN ×5 (01:10→20:11)
--- NOTE | 2019-03-28 03:15 | Operative Note - Dictated ---
DATE OF OPERATION: 03/26/2019 GASTROENTEROLOGY PROCEDURE REPORT PROCEDURE: 1. Upper gastrointestinal endoscopy with biopsy as well as colonoscopy with biopsy. 2. Submucosal injection. SURGEON: Yudy Atkins M.D. ANESTHESIA: Please see the anesthesia report for details. PRE-ENDOSCOPIC DIAGNOSES: Abdominal pain and diarrhea. POST-ENDOSCOPIC DIAGNOSES: 1. Normal upper endoscopy s/p biopsy of antrum. 2. Patchy erythema in the proximal ascending colon of doubtful significance. 3. Two polyps in the ascending colon, which were removed with biopsy forceps. 4. No ulcerations seen. DESCRIPTION OF PROCEDURE: The procedure, its risks, indications, alternatives, and possible complications were explained to the patient and an informed consent was obtained. The diagnostic upper endoscope was introduced through the oropharynx and advanced to the duodenum. The endoscope was then gradually withdrawn. The mucosa examined carefully. Examination of upper gastrointestinal mucosa revealed no significant pathology. Biopsies of the duodenum and antrum were sent to pathology for review. The endoscope was removed. The rectal exam was done. The colonoscope was introduced in the rectum and advanced to the cecum. Intubation of the terminal ileum was attempted, but was not successful. The colonoscope was then gradually withdrawn and mucosa was examined carefully. Examination of the upper gastrointestinal mucosa revealed some patches of the ascending colon mucosa, which may have been due to the colonoscope itself. Biopsies of the polyps sent to pathology for review. Two polyps were identified in the ascending colon, which were removed with biopsy forceps. Submucosal injection was done near one of these biopsy sites to sandro location. Random biopsies of the ascending colon, transverse colon, descending colon, and sigmoid colon were also sent to pathology for review. Retroflexion of the rectum was unremarkable. The colonoscope was removed and the patient was sent to recovery in good condition. COMPLICATIONS: None. ASSESSMENT: There were no endoscopic abnormalities to suggest inflammatory bowel disease. The mild erythema in the ascending colon is likely a colonoscopy artifact. Biopsies will be evaluated to rule out microscopic evidence of disease. These biopsies are negative and diarrhea continued and the patient should have a wireless capsule endoscopy to evaluate the small bowel. RECOMMENDATIONS: Per above discussion and per orders written in the chart. Thank you for asking me to participate in the care of this patient. Yudy Atkins M.D. DR: SANDRA JOB#: [id number] CC: MAHESH
--- NOTE | 2019-03-28 03:15 | Progress Note ---
DATE: 03/27/2019 CARDIOLOGY PROGRESS NOTE SUBJECTIVE: The abdominal pain and nausea persists. Endoscopy completed yesterday. Biopsies are still pending, is still with diarrhea. OBJECTIVE: VITAL SIGNS: Blood pressure trend increasing 176/76, pulse 68, and respirations 18. LUNGS: Clear. CARDIAC: Regular. Normal S1, S2 with a fourth heart sound. ABDOMEN: Soft. Mildly tender. EXTREMITIES: No edema. LABORATORY DATA: Reviewed. IMPRESSION: 1. Abdominal pain, nausea, vomiting, and diarrhea, etiology remained unclear, possibly due to colitis. She remains on empiric therapy. 2. Hypokalemia and hypomagnesemia with replacement therapy. 3. Hypertensive cardiomyopathy with rising blood pressure trend with an acute on chronic diastolic congestive heart failure. 4. Insulin-requiring diabetes with complications. 5. History of diverticulosis. No signs of active bleeding. PLAN: 1. Replace potassium and magnesium. 2. Discontinue IV fluids. 3. May need to diurese. 4. Advance antihypertensives. 5. DVT prophylaxis. 6. Insulin coverage by sliding scale. Eder Mariano M.D. DR: MANDY JOB#: [id number] CC:
[2019-03-28 04:00] VITALS: BP 131/79
[2019-03-28] MEDS ORDERED: Nulytely 4L ORAL ONE (06:00)
[2019-03-28] MEDS: NovoLOG Insulin Flexpen SUBQ SCH ×4 (06:55→20:39)
--- NOTE | 2019-03-28 07:30 | NUR ---
NURSE NOTES: Received report from Angie NICE. Patient is awake and oriented, no acute distress noted but patient reports "I'm not feeling so good", bowel prep in progress, patient is up and down to bedside commode, no clear bowel return noted yet. Patient ambulatory with walker. Fall precautions maintained with slip resistant socks, yellow gown. Patient reminded to call for assistance as needed and use BSC. Updated on plan of care for the day. Side rails upx2, bed low and locked, call light in reach. Will continue to monitor.
--- NOTE | 2019-03-28 07:30 | NUR ---
HAND-OFF: Report given to ARLET Unger. Rounds done. Encouraged to finish Nulytely for later's procedure. Per GI, procedure will be done at bedside by 0930. GI checklist done. Endorsed to AM shift.
--- NOTE | 2019-03-28 07:53 | NUR ---
NURSE NOTES: Per Dr. Atkins, patient may have all her scheduled medications, including ASA this morning, scheduled GI procedure is non-invasive.
[2019-03-28 08:00] VITALS: BP 133/74
[2019-03-28] MEDS: Aspirin Baby 81mg ORAL SCH (08:37)
[2019-03-28] MEDS: Metoprolol Succinate XL 50mg tab ORAL SCH (08:38)
--- NOTE | 2019-03-28 10:15 | General Progress Note ---
Assessment/Plan Status: stable, progressing Assessment/Plan: Assessment - abdominal wall hernias - anemia, with OB (-) stools x 2 - diarrhea x 1 month - negative EGD/Colon for cause of diarrhea (no colitis seen ) - h/o diverticulosis - h/o gallstones Recommendations - Wean off of narcotics if feasible - wireless capsule endoscopy today - RN to document any diarrhea - resume po diet after capsule Subjective Allergies: Coded Allergies: CIPROFLOXACIN (Verified Allergy, Unknown, RASH, 01/17/11) IODINE (Verified Allergy, Unknown, 09/20/10) IV DYE, IODINE CONTAINING (Verified Allergy, Unknown, SHOCK, 01/17/11) PENICILLINS (Verified Allergy, Unknown, 09/20/10) SULFA (SULFONAMIDE ANTIBIOTICS) (Verified Allergy, Unknown, RASH, 01/17/11) Subjective No diarrhea for past 2 days (++) diarrhea today due to Golytely for capsule endoscopy today Objective Last 24 Hour Vital Signs Date Time Temp Pulse Resp B/P (MAP) Pulse Ox O2 Delivery O2 Flow Rate FiO2 03/28/19 09:00 Room Air 03/28/19 08:38 79 133/74 03/28/19 08:37 79 133/74 03/28/19 08:00 97.6 79 18 133/74 (93) 98 03/28/19 04:00 97.6 60 16 131/79 (96) 94 03/28/19 01:17 173/66 03/28/19 00:59 98.2 56 18 173/66 (101) 99 03/27/19 21:00 Room Air 03/27/19 20:00 98.2 63 20 164/59 (94) 97 03/27/19 16:49 97.7 03/27/19 16:00 98.1 57 18 159/63 (95) 95 03/27/19 12:00 97.7 56 20 155/60 (91) 94 Intake and Output 03/27/19 03/28/19 18:59 06:59 Intake Total 400 ml 240 ml Balance 400 ml 240 ml Intake Oral 300 ml 240 ml IV Total 100 ml # Voids 4 3 Height (Feet): 4 Height (Inches): 4.00 Weight (Pounds): 143 Objective WDWN WW NCAT supple CTA RRR abd soft, obese, mild diffuse TTP, (+) multiple large abd wall hernias no edema non focal Yudy Atkins MD Mar 28, 2019 10:15
--- NOTE | 2019-03-28 11:37 | General Progress Note ---
Assessment/Plan Problem List: (1) Uncontrolled diabetes mellitus ICD Codes: E11.65 - Type 2 diabetes mellitus with hyperglycemia SNOMED: 866299769 Status: stable, progressing Assessment/Plan: cont current rx ivf dcd pain rx PPI capsule endoscopy today dc planning pending reviewed on capsule results DTR cannot pear picker pt till tomorrow Subjective ROS Limited/Unobtainable: No Constitutional: Reports: malaise, weakness HEENT: Reports: no symptoms Cardiovascular: Reports: no symptoms Respiratory: Reports: no symptoms Gastrointestinal/Abdominal: Reports: diarrhea Genitourinary: Reports: no symptoms Neurologic/Psychiatric: Reports: anxiety, depressed Endocrine: Reports: no symptoms Hematologic/Lymphatic: Reports: no symptoms Allergies: Coded Allergies: CIPROFLOXACIN (Verified Allergy, Unknown, RASH, 01/17/11) IODINE (Verified Allergy, Unknown, 09/20/10) IV DYE, IODINE CONTAINING (Verified Allergy, Unknown, SHOCK, 01/17/11) PENICILLINS (Verified Allergy, Unknown, 09/20/10) SULFA (SULFONAMIDE ANTIBIOTICS) (Verified Allergy, Unknown, RASH, 01/17/11) All Systems: reviewed and negative except above Subjective c/o same abd pain. no fever or chills. endoscopy results negative. scheduled for capsule endoscopy today. taking pain meds every 3 hrs Objective Last 24 Hour Vital Signs Date Time Temp Pulse Resp B/P (MAP) Pulse Ox O2 Delivery O2 Flow Rate FiO2 03/28/19 09:00 Room Air 03/28/19 08:38 79 133/74 03/28/19 08:37 79 133/74 03/28/19 08:00 97.6 79 18 133/74 (93) 98 03/28/19 04:00 97.6 60 16 131/79 (96) 94 03/28/19 01:17 173/66 03/28/19 00:59 98.2 56 18 173/66 (101) 99 03/27/19 21:00 Room Air 03/27/19 20:00 98.2 63 20 164/59 (94) 97 03/27/19 16:49 97.7 03/27/19 16:00 98.1 57 18 159/63 (95) 95 03/27/19 12:00 97.7 56 20 155/60 (91) 94 Intake and Output 9/4/19 9/5/19 18:59 06:59 Intake Total 400 ml 240 ml Balance 400 ml 240 ml Intake Oral 300 ml 240 ml IV Total 100 ml # Voids 4 3 Height (Feet): 4 Height (Inches): 4.00 Weight (Pounds): 143 Objective General Appearance: WD/WN, alert Neck: supple Cardiovascular: normal rate Respiratory/Chest: chest wall non-tender, lungs clear, normal breath sounds Abdomen: normal bowel sounds, non tender, soft, no organomegaly Edema: no edema noted Arm (L), no edema noted Arm (R), no edema noted Leg (L), no edema noted Leg (R), no edema noted Pedal (L), no edema noted Pedal (R), no edema noted Generalized Neurologic: shipping and receiving weigher II-XII grossly normal, no motor/sensory deficits, alert, oriented x 3, responsive Brian Fernandez MD Mar 28, 2019 11:37
[2019-03-28 12:00] VITALS: BP 167/68
--- NOTE | 2019-03-28 12:15 | NUR ---
CASE MANAGEMENT:REVIEW 03/28/19 SI: DIARRHEA X1 MONTH S/P EGD/COLON ~ NEGATIVE 97.3 59 18 167/68 99% ON RA IS: NORVASC PO BID ASA PO QD TOPROL XL PO QD IV DILAUDID Q4HRS PRN SS INSULIN SQ AC+HS : MED/SURG STATUS PLAN: PILL CAM SWALLOWED CLEARED BY DR TORIBIO TO DISCHARGE THIS EVENING
[2019-03-28 16:00] VITALS: BP 142/55
--- NOTE | 2019-03-28 19:36 | NUR ---
HAND-OFF: Report given to Angie NICE.
--- NOTE | 2019-03-28 19:37 | NUR ---
NURSE NOTES: Patient received complaining of pain in the abdomen of 03/02. Dilaudid 1mg/ml PRN will be given when due. No outward signs or symptoms of respiratory compromise or generalized distress. Bed at lowest level, call light within reach.
[2019-03-28 20:00] VITALS: BP 170/71
--- NOTE | 2019-03-28 22:10 | Endoscopy Procedure Note ---
Endoscopy Procedure Note General Indication for Procedure: diarrhea Procedures Performed: EGD, colonoscopy Operative Findings/Diagnosis: see report dictated Specimen: yes Pt Tolerated Procedure Well: Yes Estimated Blood Loss: none Anesthesia Anesthesiologist: see report Anesthesia: MAC Inserted Devices Implant(s) used?: No GI Core Measures 50 yrs or older w/o bx or poly: Not Applicable 10yrs. F/U recommended: Not Applicable Yudy Atkins MD Mar 28, 2019 22:10
--- NOTE | 2019-03-28 22:11 | Brief Operative Note ---
Immediate Post Operative Note Operative Note Chief Complaint: diarrhea Pre-op Diagnosis: Anemia Procedure: esophagogastroduodenoscopy colon Post-op Diagnosis: see dictation Surgeon: jag Anesthesiologist: see report Anesthesia: MAC Specimen: yes Complications: none Condition: stable Fluids: recorded Implant(s) used?: No Yudy Atkins MD Mar 28, 2019 22:11
[2019-03-29] VITALS: BP 155/59
[2019-03-29] MEDS ORDERED: HydrALAZINE 10mg Tab ORAL PRN
[2019-03-29] MEDS: HYDROmorphone 1mg/ml Carpuject IVP PRN ×4 (00:30→15:33)
--- NOTE | 2019-03-29 00:30 | Progress Note ---
DATE: 03/28/2019 SUBJECTIVE: The patient is status post panendoscopy today. Findings are notable for normal upper endoscopy, two small polyps. No ulcerations in the colon. The patient still has had diarrhea although accuracy questionable with the bowel prep. OBJECTIVE: VITAL SIGNS: Blood pressure remains labile, 142/55 to 170/71, heart rate 51 to 59, respiratory rate 18, and afebrile. LUNGS: Clear. CARDIAC: Regular. Normal S1, S2. ABDOMEN: Soft. No edema. IMPRESSION: 1. Diarrhea. 2. Diverticulosis. 3. Colon polyps. 4. Bradycardia, on beta-amari. 5. Hypertensive heart disease with increasing blood pressure trend. PLAN: 1. Amlodipine advanced. 2. Consider further therapy based on clinical parameters. 3. Decrease beta-amari dosings in view of bradycardia, which is likely exacerbated by increased vagal tone. 4. Monitor volume status, electrolytes, and cardiorenal parameters. Eder Mariano M.D. DR: REESE JOB#: [id number] CC:
[2019-03-29 04:00] VITALS: BP 132/78
[2019-03-29] MEDS: NovoLOG Insulin Flexpen SUBQ SCH ×3 (06:54→17:04)
--- NOTE | 2019-03-29 07:30 | NUR ---
NURSE NOTES: Received report from Angie NICE. Patient is awake and oriented, no acute distress noted, not reporting pain at this time. Per report patient had 2 episodes of diarrhea overnight, unsure if capsule was passed. BSC and walker at bedside. IV intact. Patient updated on plan of care for the day. Fall precautions maintained. Side rails upx3, bed low and locked, call light in reach. Will continue to monitor.
--- NOTE | 2019-03-29 07:30 | NUR ---
HAND-OFF: Report given to ARLET Unger. Rounds done.
[2019-03-29 08:00] VITALS: BP 169/71
--- NOTE | 2019-03-29 08:29 | NUR ---
NURSE NOTES: Patient seen by Dr. Fernandez. Per MD, patient to be discharged today. MD stated to inform him if patient has any more episodes of diarrhea, MD also going to order for a UA for the patient.
[2019-03-29] MEDS: Aspirin Baby 81mg ORAL SCH (08:40)
[2019-03-29] MEDS ORDERED: Metoprolol Succinate XL 25mg tab ORAL SCH (09:00)
[2019-03-29 12:00] VITALS: BP 168/61
[2019-03-29 16:00] VITALS: BP 142/67
--- NOTE | 2019-03-29 18:30 | Discharge Summary ---
DATE OF ADMISSION: 03/24/2019 DATE OF DISCHARGE: 03/29/2019 ADMISSION DIAGNOSES: 1. Intractable diarrhea. 2. Dehydration. 3. Acute on chronic renal failure. 4. History of stroke. 5. Nonischemic cardiomyopathy. 6. Diabetes. 7. Chronic lower back pain. 8. Neuropathy. DISCHARGE DIAGNOSES: 1. Intractable diarrhea. 2. Dehydration. 3. Acute on chronic renal failure. 4. History of stroke. 5. Nonischemic cardiomyopathy. 6. Diabetes. 7. Chronic lower back pain. 8. Neuropathy. 9. Colitis. HOSPITAL COURSE: This is a pleasant female, who is admitted with complaints of one month of intractable diarrhea. She was dehydrated, weak, and dizzy. She had a stool for C. diff that was negative. She had several bouts of diarrhea while in the hospital. She was hydrated. She had a CAT scan of the abdomen that showed colitis. A colonoscopy was unremarkable. The patient prior to discharge was still having diarrhea although less. She had a capsule endoscopy prior to her discharge. She will follow up with her GI doctor for followup with capsule endoscopy. DISCHARGE MEDICATIONS: Please see discharge medication list for discharge medications. DIET: Cardiac and diabetic diet. ACTIVITIES: Ad-carla. Brian Fernandez M.D. DR: AMOS JOB#: [id number] CC:
--- NOTE | 2019-03-29 19:24 | General Progress Note ---
Assessment/Plan Status: stable, progressing Assessment/Plan: Assessment - abdominal wall hernias - anemia, with OB (-) stools x 2 - diarrhea x 1 month - negative EGD/Colon for cause of diarrhea (no colitis seen ) - h/o diverticulosis - h/o gallstones Recommendations - Wean off of narcotics if feasible - f/u capsule results - RN to document any diarrhea Subjective Allergies: Coded Allergies: CIPROFLOXACIN (Verified Allergy, Unknown, RASH, 01/17/11) IODINE (Verified Allergy, Unknown, 09/20/10) IV DYE, IODINE CONTAINING (Verified Allergy, Unknown, SHOCK, 01/17/11) PENICILLINS (Verified Allergy, Unknown, 09/20/10) SULFA (SULFONAMIDE ANTIBIOTICS) (Verified Allergy, Unknown, RASH, 01/17/11) Subjective No diarrhea since last night tolerating PO d/c planning noted Objective Last 24 Hour Vital Signs Date Time Temp Pulse Resp B/P (MAP) Pulse Ox O2 Delivery O2 Flow Rate FiO2 03/29/19 16:00 98.2 65 20 142/67 (92) 98 03/29/19 12:25 168/61 03/29/19 12:00 98.3 54 18 168/61 (96) 97 03/29/19 09:00 Room Air 03/29/19 08:39 78 169/71 03/29/19 08:39 78 169/71 03/29/19 08:00 98.4 78 17 169/71 (103) 95 03/29/19 04:00 97.8 16 132/78 (96) 96 03/29/19 04:00 97.8 58 16 132/78 (96) 96 03/29/19 00:00 97.5 56 17 155/59 (91) 96 03/28/19 21:00 Room Air 03/28/19 20:27 58 170/71 03/28/19 20:00 97.1 58 16 170/71 (104) 96 Intake and Output 03/28/19 03/29/19 19:00 07:00 Intake Total 1600 ml 240 ml Balance 1600 ml 240 ml Intake Oral 1600 ml 240 ml # Voids 4 3 # Bowel Movements 5 5 Height (Feet): 4 Height (Inches): 4.00 Weight (Pounds): 143 Objective WDWN WW NCAT supple CTA RRR abd soft, obese, mild diffuse TTP, (+) multiple large abd wall hernias no edema non focal Yudy Atkins MD Mar 29, 2019 19:24
--- NOTE | 2019-03-29 19:35 | NUR ---
NURSE NOTES: Patient discharged per MD order without acute distress. Patient given discharge instructions and instructed to follow up with Dr. Fernandez and Dr. Atkins within one week. Patient verbalized understanding. IV removed intact. Patient taken down to private vehicle accompanied by patient's daughter in stable condition via wheelchair.
--- NOTE | 2019-03-29 22:45 | Progress Note ---
DATE: 03/29/2019 SUBJECTIVE: The patient had a panendoscopy yesterday, no obvious etiology for colitis was seen. The patient's diarrhea has decreased. OBJECTIVE: VITAL SIGNS: Blood pressure 142/67, pulse 65, respiratory rate 20. Earlier blood pressure was up to 169/71. LUNGS: Clear. CARDIAC: Regular. Normal S1 and S2 with a fourth heart sound. ABDOMEN: Soft, doughy, with no focal tenderness. EXTREMITIES: Trace edema. IMPRESSION: 1. Diarrhea improved. 2. Acute on chronic pain improved. 3. Hypertensive cardiomyopathy with slightly elevated blood pressure trend but the patient has missed medication doses over the past 24 hours due to bowel preps. 4. Diastolic dysfunction with no clinical signs of acute congestive heart failure. 5. History of nonsustained ventricular ectopy. 6. Moderate to severe protein-calorie malnutrition. 7. Hypomagnesemia. PLAN: 1. Stable to complete recovery at home. 2. Discharge medication regimen reviewed and reconciled. 3. We will monitor blood pressure as outpatient and titrate cardiovascular regimen accordingly. 4. No indication for diuretic therapy at this time. 5. Will need correction magnesium replacement orally. Eder Mariano M.D. DR: Barry JOB#: [id number] CC:
== END 2019-03-29 19:00 | disposition home or self-care (01) | DRG 392 ==
LOC: 3E 13:07
PROC: 0DBL8ZX Excision of Transverse Colon, Via Natural or Artificial Opening Endoscopic, Diagnostic (ICD-10-PCS; principal; 2019-03-26 07:47)
PROC: 0DBN8ZX Excision of Sigmoid Colon, Via Natural or Artificial Opening Endoscopic, Diagnostic (ICD-10-PCS; principal; 2019-03-26 07:47)
PROC: 0DB78ZX Excision of Stomach, Pylorus, Via Natural or Artificial Opening Endoscopic, Diagnostic (ICD-10-PCS; principal; 2019-03-26 07:47)
PROC: 0DBK8ZX Excision of Ascending Colon, Via Natural or Artificial Opening Endoscopic, Diagnostic (ICD-10-PCS; principal; 2019-03-26 07:47)
PROC: 0DBK8ZZ Excision of Ascending Colon, Via Natural or Artificial Opening Endoscopic (ICD-10-PCS; principal; 2019-03-26 07:47)
PROC: 0DBM8ZX Excision of Descending Colon, Via Natural or Artificial Opening Endoscopic, Diagnostic (ICD-10-PCS; principal; 2019-03-26 07:47)
PROC: 0DB98ZX Excision of Duodenum, Via Natural or Artificial Opening Endoscopic, Diagnostic (ICD-10-PCS; principal; 2019-03-26 07:47)
DX: K52.9 Noninfective gastroenteritis and colitis, unspecified (principal); I13.0 Hypertensive heart and chronic kidney disease with heart failure and stage 1 through stage 4 chronic kidney disease, or unspecified chronic kidney disease; I50.32 Chronic diastolic (congestive) heart failure; E44.0 Moderate protein-calorie malnutrition; E86.1 Hypovolemia; R11.2 Nausea with vomiting, unspecified; E86.0 Dehydration; E11.22 Type 2 diabetes mellitus with diabetic chronic kidney disease; N18.9 Chronic kidney disease, unspecified; Z79.4 Long term (current) use of insulin; Z88.0 Allergy status to penicillin; Z88.2 Allergy status to sulfonamides; Z88.8 Allergy status to other drugs, medicaments and biological substances; Z88.1 Allergy status to other antibiotic agents; E11.65 Type 2 diabetes mellitus with hyperglycemia; R00.1 Bradycardia, unspecified; K46.9 Unspecified abdominal hernia without obstruction or gangrene; G89.29 Other chronic pain; M54.5 Low back pain
CPT/HCPCS: 36415; 45381; 74176; 80048; 80053; 81003; 82270; 82962; 83540; 83550; 83735; 83880; 84443; 85007; 85025; 85610; 85730; 87045; 87324; 94003; 94150; J1815; J2250; J3490; J8499

== ENCOUNTER 2019-08-19 20:16 | Inpatient (IN) | payer MEDICARE, MEDICAID ==
[~2019-08-19] VITALS: Ht 149.9 cm; Wt 62.1 kg
[~2019-08-19 20:16] MED LIST changes: +AMLODIPINE BESYL5 MG ORAL; +ARICEPT5 MG ORAL; +ATORVASTATIN CA80 MG ORAL; +CARDURA1 MG ORAL; +CYMBALTA20 MG ORAL; +DEPAKOTE125 MG PO; +ENALAPRIL MALEA20 MG ORAL; +HUMALOG100 UNIT/3 SUBQ; +LANTUS SOL100 UNIT/1 SUBQ; +MAGNESIUM OXID400 M1 ORAL; +VITAMIN B-12500 MCG ORAL; +VITAMIN D250000 UNI1 ORAL; +ZOFRAN4 M3 ORAL
[2019-08-19] MEDS: Atorvastatin 80mg tab ORAL SCH (21:00)
[2019-08-19 21:20] VITALS: BP 152/58
--- NOTE | 2019-08-19 21:30 | NUR ---
NURSE NOTES: Admitted patient awake, alert, verbal, ambulates with a walker, no SOB, with essentially normal vital signs.
[2019-08-19] MEDS ORDERED: MEMANTINE HCL5 MG PO (22:00)
[2019-08-19] MEDS: Depakote 125mg Sprinkles ORAL SCH (23:00)
[2019-08-19 23:17] LABS: BASOPHILS % (AUTO) 1.2 % (0.0-2.0); EOSINOPHILS % (AUTO) 2.6 % (0.0-3.0); HEMATOCRIT 36.1 % (37.0-47.0); HEMOGLOBIN 12.2 G/DL (12.0-16.0); LYMPHOCYTES % (AUTO) 39.7 % (20.0-45.0); MEAN CORPUSCULAR VOLUME 96 FL (80-99); MONOCYTES % (AUTO) 10.8 % (1.0-10.0); NEUTROPHILS % (AUTO) 45.8 % (45.0-75.0); PLATELET COUNT 158 K/UL (150-450); RED BLOOD COUNT 3.77 M/UL (4.20-5.40); RED CELL DISTRIBUTION WIDTH 13.1 % (11.6-14.8); WHITE BLOOD COUNT 7.8 K/UL (4.8-10.8)
[2019-08-19 23:36] LABS: ALANINE AMINOTRANSFERASE 39 U/L (12-78); ALBUMIN 3.2 G/DL (3.4-5.0); ALKALINE PHOSPHATASE 162 U/L (46-116); ANION GAP 5 mmol/L (5-15); ASPARTATE AMINO TRANSFERASE 16 U/L (15-37); BILIRUBIN,TOTAL 0.6 MG/DL (0.2-1.0); BLOOD UREA NITROGEN 28 mg/dL (7-18); CALCIUM 9.2 MG/DL (8.5-10.1); CARBON DIOXIDE 28 MMOL/L (21-32); CHLORIDE 103 MMOL/L (98-107); CREATININE 1.7 MG/DL (0.55-1.30); POTASSIUM 4.3 MMOL/L (3.5-5.1); SODIUM 136 MMOL/L (136-145)
[2019-08-20 00:21] VITALS: BP 148/59
[2019-08-20 04:09] VITALS: BP 144/63
[2019-08-20] MEDS: NovoLOG Insulin Flexpen SUBQ SCH ×4 (05:50→20:13)
--- NOTE | 2019-08-20 07:27 | NUR ---
HAND-OFF: Report given to Carol Pratt RN.
--- NOTE | 2019-08-20 07:28 | NUR ---
NURSE NOTES: Patient awake, alert x4; on room air, no sing of distress and shortness of breath; no sing of chest pain; IV Left For-Arm 24G flushes well; patient's own walker within reach; side rails up x2, breaks engaged, bed at lowest position; will check blood sugar as scheduled; call light within reach; will keep monitoring.
[2019-08-20 08:00] VITALS: BP 145/92
[2019-08-20] MEDS: Doxazosin 1mg Tab ORAL SCH (08:57)
[2019-08-20] MEDS: Aspirin EC 81mg tab ORAL SCH (08:57)
[2019-08-20] MEDS: Magnesium Oxide 400mg tab ORAL SCH (08:57)
[2019-08-20] MEDS: Metoprolol Succinate XL 50mg tab ORAL SCH (08:57)
[2019-08-20] MEDS: Tylenol #3 tab (300mg/30mg) ORAL PRN ×2 (08:59→20:11)
[2019-08-20] MEDS: Heparin 5000 units/ml inj SUBQ SCH ×2 (09:01→20:12)
--- NOTE | 2019-08-20 09:28 | Diagnostic Imaging Report ---
. Indication: Cough Technique: One view of the chest Comparison: 04/25/2018 Findings: There is some scarring in the left midlung. There is minimal scarring at the left lung apex as well. The lungs and pleural spaces are otherwise clear. The heart is borderline enlarged. The aorta is tortuous calcified Impression: Borderline cardiomegaly No acute process
--- NOTE | 2019-08-20 10:03 | NUR ---
RADIOLOGY DEPT., CHEST X-RAY DONE.-P.DYE
[2019-08-20 12:00] VITALS: BP 121/67
[2019-08-20] MEDS: Depakote 125mg Sprinkles ORAL SCH ×2 (12:15→22:34)
[2019-08-20 16:00] VITALS: BP 134/61
--- NOTE | 2019-08-20 16:26 | Diagnostic Imaging Report ---
Clinical Indication: Shortness of breath Technique: Spiral acquisitions obtained through the chest. No IV contrast utilized, reason not stated. Multiplanar reconstructions generated. Total dose length product 754 mGycm. CTDIvol(s) 17 mGy. Dose reduction achieved using automated exposure control Comparison: none Findings: There is some atelectasis or scarring in the perihilar left upper lobe as well as in the inferior left upper lobe. The lungs and pleural spaces are otherwise clear. No infiltrates, masses, effusions, nodules, or congestion. The heart size is normal. There is minimal mitral annular calcification and some coronary artery calcifications noted. No pericardial effusion. No mediastinal or hilar mass or adenopathy. There is a tiny peripheral calcified thyroid nodule in the right lower pole. No axillary or chest wall mass or adenopathy. Unremarkable esophagus. The bones demonstrate degenerative spondylosis changes. Bones appear osteoporotic. There is a wedge/vertebra plana compression fracture deformity of the L1 vertebral body with approximately 80% height loss and some posterior retropulsion, which is also demonstrated on 03/22/[address] scan. The included upper abdominal anatomy demonstrates broad-based diastasis of the rectus abdominis tendon. There is one or more gallstones present. There is a interpolar region left renal cyst incidentally noted. Impression: No acute process Minimal left upper lobe atelectasis and/or scarring L1 vertebral body compression fracture deformity, also demonstrated on prior abdomen CT of 03/22/2019 Cholelithiasis Broad-based diastasis of the rectus abdominis tendon, also previously described Other findings as noted, including calcified tiny right lower pole thyroid nodule, degenerative spondylosis, left renal cyst The CT scanner at [facility] is accredited by the [employer] and the scans are performed using protocols designed to limit radiation exposure to as low as reasonably achievable to attain images of sufficient resolution adequate for diagnostic evaluation.
--- NOTE | 2019-08-20 16:30 | History and Physical Report ---
DATE OF ADMISSION: 08/19/2019 CHIEF COMPLAINT: Shortness of breath, cough, and pneumonia. HISTORY OF PRESENT ILLNESS: This is a pleasant female with a history of diabetes, hypertension, nonischemic cardiomyopathy, prior stroke. She presented with complaints of worsening cough, congestion, fevers and chills. She was diagnosed a little over a week ago with pneumonia. She has been on several courses of antibiotic therapy without clinical improvement. In light of her worsening shortness of breath and failure to respond to outpatient therapy, she is now admitted for further evaluation and care. PAST MEDICAL HISTORY: As above. PAST SURGICAL HISTORY: Includes abdominal surgery. CURRENT MEDICATIONS: Reconciled and reviewed. ALLERGIES: Include penicillin, Cipro, iodine. FAMILY HISTORY: Noncontributory. SOCIAL HISTORY: Negative for tobacco, ethanol, or drugs. REVIEW OF SYSTEMS: GENERAL: Positive fevers and chills, but no night sweats. HEENT: No headaches or visual changes. CARDIOPULMONARY: No chest pain. Positive shortness of breath and cough. GASTROINTESTINAL: No nausea or vomiting. GENITOURINARY: No urgency or frequency. MUSCULOSKELETAL: No joint pain or swelling. NEUROLOGIC: No evidence of seizures. PHYSICAL EXAMINATION: VITAL SIGNS: Temperature 98 degrees, pulse 67, respirations 20, blood pressure 145/92. GENERAL: The patient is well developed, in no apparent distress. HEART: Regular rate and rhythm. LUNGS: Significant bilateral rhonchi and wheezes. ABDOMEN: Soft, nontender, nondistended. EXTREMITIES: Without clubbing, cyanosis, or edema. LABORATORY DATA: White count 8, hemoglobin 12, platelet count 158. Creatinine was 1.7. ASSESSMENT: This is a pleasant female admitted with complaints of shortness of breath secondary to pneumonia, COPD/asthma exacerbation. She also has acute on chronic renal failure likely secondary to dehydration. Additional problems including history of diabetes, hypertension, stroke, and congestive heart failure. PLAN: 1. IV antibiotics. 2. Follow up cultures. 3. Cautious hydration. 4. Consider steroids. 5. Breathing treatments [id number]. Brian Fernandez M.D. DR: DIDIER JOB#: [id number] CC:
--- NOTE | 2019-08-20 18:57 | NUR ---
HAND-OFF: Report given to ARLET Martinez.
--- NOTE | 2019-08-20 19:30 | NUR ---
NURSE NOTES: Received patient awake, alert, verbal, no SOB, resting in bed watching television.
[2019-08-20] MEDS: Albuterol/Ipratropium 3ml neb HHN PRN (19:50)
[2019-08-20] MEDS: Atorvastatin 80mg tab ORAL SCH (20:11)
[2019-08-20 20:43] VITALS: BP 121/54
[2019-08-21 00:51] VITALS: BP 103/53
[2019-08-21 04:32] VITALS: BP 100/69
[2019-08-21] MEDS: Albuterol/Ipratropium 3ml neb HHN PRN ×2 (05:46→21:22)
[2019-08-21] MEDS: NovoLOG Insulin Flexpen SUBQ SCH ×4 (05:51→21:10)
--- NOTE | 2019-08-21 07:12 | NUR ---
NURSE NOTES: Patient awake, alert x4; on room air, no sing of distress and shortness of breath; no sing of chest pain; IV Left For-Arm 24G flushes; patient's own walker at the bed side, within reach; side rails up x2, breaks engaged, bed at lowest position; call light within reach; will keep monitoring.
--- NOTE | 2019-08-21 07:19 | NUR ---
HAND-OFF: Report given to Carol Pratt RN.
--- NOTE | 2019-08-21 07:36 | General Progress Note ---
Assessment/Plan Problem List: (1) Dehydration ICD Codes: E86.0 - Dehydration SNOMED: 69643815 (2) hypertension (3) diabetes (4) PNA (pneumonia) ICD Codes: J18.9 - Pneumonia, unspecified organism SNOMED: 512765429 Status: stable Assessment/Plan: ivf iv abx cough rx follow up cultures ct chest Subjective ROS Limited/Unobtainable: No Constitutional: Reports: malaise, weakness HEENT: Reports: no symptoms Cardiovascular: Reports: no symptoms Respiratory: Reports: cough Gastrointestinal/Abdominal: Reports: abdominal pain Genitourinary: Reports: no symptoms Neurologic/Psychiatric: Reports: no symptoms Endocrine: Reports: no symptoms Hematologic/Lymphatic: Reports: no symptoms Allergies: Coded Allergies: CIPROFLOXACIN (Verified Allergy, Unknown, RASH, 01/17/11) IODINE (Verified Allergy, Unknown, 09/20/10) IV DYE, IODINE CONTAINING (Verified Allergy, Unknown, SHOCK, 01/17/11) PENICILLINS (Verified Allergy, Unknown, 09/20/10) SULFA (SULFONAMIDE ANTIBIOTICS) (Verified Allergy, Unknown, RASH, 01/17/11) All Systems: reviewed and negative except above Subjective intractable cough. +chills. on iv abx. and ivf. +abd pain. Objective Last 24 Hour Vital Signs Date Time Temp Pulse Resp B/P (MAP) Pulse Ox O2 Delivery O2 Flow Rate FiO2 08/21/19 05:46 63 18 94 Room Air 21 08/21/19 04:32 96.9 67 12 100/69 (79) 96 08/21/19 00:51 97.1 60 16 103/53 (70) 95 08/20/19 20:54 Room Air 08/20/19 20:43 97.4 62 12 121/54 (76) 96 08/20/19 20:41 97.5 08/20/19 19:55 58 17 93 Room Air 21 08/20/19 19:51 62 18 98 Room Air 21 58 17 93 08/20/19 17:11 63 134/61 08/20/19 16:00 97.5 63 20 134/61 (85) 96 08/20/19 12:00 97.9 91 19 121/67 (85) 98 08/20/19 09:00 Room Air 08/20/19 08:57 67 145/92 08/20/19 08:57 67 145/92 1/28/20 08:00 98.4 67 20 145/92 (109) 98 Intake and Output 08/20/19 08/21/19 19:00 07:00 Intake Total 875 ml 250 ml Balance 875 ml 250 ml Intake Oral 875 ml Other 250 ml # Voids 4 2 Height (Feet): 4 Height (Inches): 11.00 Weight (Pounds): 137 General Appearance: WD/WN, alert Neck: supple Cardiovascular: regular rhythm Respiratory/Chest: chest wall non-tender, no respiratory distress, rhonchi - bilaterally Abdomen: normal bowel sounds, non tender, soft, no organomegaly Edema: no edema noted Arm (L), no edema noted Arm (R), no edema noted Leg (L), no edema noted Leg (R), no edema noted Pedal (L), no edema noted Pedal (R), no edema noted Generalized Brian Fernandez MD Aug 21, 2019 07:36
[2019-08-21 08:00] VITALS: BP 138/98
[2019-08-21] MEDS: Metoprolol Succinate XL 50mg tab ORAL SCH (08:30)
[2019-08-21] MEDS: Magnesium Oxide 400mg tab ORAL SCH (08:30)
[2019-08-21] MEDS: Aspirin EC 81mg tab ORAL SCH (08:30)
[2019-08-21] MEDS: Lisinopril 20mg tab ORAL SCH (08:30)
[2019-08-21] MEDS: Tylenol #3 tab (300mg/30mg) ORAL PRN ×2 (08:31→21:09)
[2019-08-21] MEDS: Promethazine/Codeine 5ml UD ORAL PRN ×3 (08:31→22:38)
[2019-08-21] MEDS: Doxazosin 1mg Tab ORAL SCH (08:31)
[2019-08-21] MEDS: Heparin 5000 units/ml inj SUBQ SCH ×2 (08:34→21:10)
--- NOTE | 2019-08-21 09:55 | NUR ---
NURSE NOTES: Patient is asking to use her walker in the cano way; I communicated MD Fernandez to get an order for PT eval; order received from MD Fernandez and carried out as order given;
[2019-08-21] MEDS: Depakote 125mg Sprinkles ORAL SCH ×2 (11:59→21:08)
[2019-08-21 12:00] VITALS: BP 108/56
--- NOTE | 2019-08-21 14:00 | NUR ---
PT EVALUATION NOTE Patient seen for initial evaluation. Patient presents with generalized weakness and low back pain which impairs patient's ability to perform mobility tasks safely. Patient requires SBA for bed mobility and transfers with FWW. Patient able to ambulate 120 ft with SBA and FWW, several standing rest breaks. Patient will benefit from skilled inpatient PT intervention to address strength, balance and safety for increased level of independence with functional mobility. Recommend discharge home with home PT once medically cleared by MD. Patient has own FWW, further DME needs to be determined based on patient's progress. Addendum: 08/21/19 at 1435 by VLAD LIZ PT Amended: Links added.
[2019-08-21 16:00] VITALS: BP 136/57
--- NOTE | 2019-08-21 17:07 | NUR ---
CASE MANAGEMENT:INITIAL REVIEW 73 YR OLD FEMALE DIRECT ADMIT BY DR MONTERROSO CC: SOB. COUGH. PNA. SI;SOB. COUGH. PNA. 97.4 71 18 108/56 96% ON RA BUN 27 CREAT 1.7 BG 290 ALK PHOS 162 IS;PHENERGAN W/CODEINE PO Q4 HRS PRN IVF NS @ 75 ML/HR DUO NEB HHN Q4 HRS TYLENOL #3 PO BID PRN PROTONIX PO QD HEPARIN SUBQ Q12 HRS MAG-OX PO QD ADMITTED TO MED SURG DCP;FROM HOME
--- NOTE | 2019-08-21 19:07 | NUR ---
HAND-OFF: Report given to ARLET Martinez.
--- NOTE | 2019-08-21 19:49 | NUR ---
NURSE NOTES: Received patient awake, alert, verbal, no SOB, resting comfortably in bed watching television.
[2019-08-21 20:09] VITALS: BP 120/60
[2019-08-21] MEDS: Atorvastatin 80mg tab ORAL SCH (21:08)
[2019-08-22 00:09] VITALS: BP 127/64
[2019-08-22 04:00] VITALS: BP 125/66
[2019-08-22] MEDS: Promethazine/Codeine 5ml UD ORAL PRN ×4 (05:52→21:04)
[2019-08-22] MEDS: NovoLOG Insulin Flexpen SUBQ SCH ×4 (05:53→21:02)
--- NOTE | 2019-08-22 07:32 | NUR ---
HAND-OFF: Report given to Mabel Delgado RN.
--- NOTE | 2019-08-22 07:33 | General Progress Note ---
Assessment/Plan Problem List: (1) Dehydration ICD Codes: E86.0 - Dehydration SNOMED: [id number] (2) hypertension (3) diabetes (4) PNA (pneumonia) ICD Codes: J18.9 - Pneumonia, unspecified organism SNOMED: 232783483 (5) COPD exacerbation ICD Codes: J44.1 - Chronic obstructive pulmonary disease with (acute) exacerbation SNOMED: 143809514 Status: stable Assessment/Plan: cont ivf follow up labs iv abx cough rx follow up cultures ct chest reviewed Subjective ROS Limited/Unobtainable: No Constitutional: Reports: malaise, weakness HEENT: Reports: no symptoms Cardiovascular: Reports: no symptoms Respiratory: Reports: no symptoms Gastrointestinal/Abdominal: Reports: abdominal pain, nausea, vomiting Genitourinary: Reports: no symptoms Neurologic/Psychiatric: Reports: pre-existing deficit Endocrine: Reports: no symptoms Hematologic/Lymphatic: Reports: anemia Allergies: Coded Allergies: CIPROFLOXACIN (Verified Allergy, Unknown, RASH, 01/17/11) IODINE (Verified Allergy, Unknown, 09/20/10) IV DYE, IODINE CONTAINING (Verified Allergy, Unknown, SHOCK, 01/17/11) PENICILLINS (Verified Allergy, Unknown, 09/20/10) SULFA (SULFONAMIDE ANTIBIOTICS) (Verified Allergy, Unknown, RASH, 01/17/11) All Systems: reviewed and negative except above Subjective intractable cough. +chills. on iv abx. and ivf. +abd pain. labs pending. Objective Last 24 Hour Vital Signs Date Time Temp Pulse Resp B/P (MAP) Pulse Ox O2 Delivery O2 Flow Rate FiO2 08/22/19 04:00 98.7 63 16 125/66 (85) 99 08/22/19 00:09 97.2 71 12 127/64 (85) 92 08/21/19 21:47 98.1 08/21/19 21:23 60 18 97 Room Air 21 08/21/19 20:09 98.1 72 18 120/60 (80) 95 08/21/19 20:06 Room Air 08/21/19 17:09 65 136/57 08/21/19 16:00 98.0 65 18 136/57 (83) 99 08/21/19 12:00 97.3 65 19 108/56 (73) 96 08/21/19 09:01 97.4 08/21/19 09:00 Room Air 1/29/20 08:31 71 138/98 08/21/19 08:30 138/98 08/21/19 08:30 71 138/98 08/21/19 08:00 97.4 71 18 138/98 (111) 95 Intake and Output 08/21/19 08/22/19 19:00 07:00 Intake Total 1785 ml 900 ml Balance 1785 ml 900 ml Intake Oral 960 ml IV Total 825 ml 900 ml # Voids 3 2 # Bowel Movements 1 Height (Feet): 4 Height (Inches): 11.00 Weight (Pounds): 137 General Appearance: WD/WN, alert Neck: supple Cardiovascular: regular rhythm Respiratory/Chest: rhonchi - bilaterally Abdomen: normal bowel sounds, non tender, soft, no organomegaly Edema: no edema noted Arm (L), no edema noted Arm (R), no edema noted Leg (L), no edema noted Leg (R), no edema noted Pedal (L), no edema noted Pedal (R), no edema noted Generalized Brian Fernandez MD Aug 22, 2019 07:33
--- NOTE | 2019-08-22 07:46 | NUR ---
NURSE NOTES: received report from ARLET Méndez. patient in bed. alert. oriented. verbally responsive. no respiratory distress noted. no pain at this time. coughing. IV on LFA24g running ns@75/hr. ambulate with walker. the bed in the lowest position and locked. call light within reach. will continue to provide plan of care.
[2019-08-22 08:00] VITALS: BP 136/65
[2019-08-22] MEDS: Magnesium Oxide 400mg tab ORAL SCH (08:18)
[2019-08-22] MEDS: Depakote 125mg Sprinkles ORAL SCH ×2 (08:18→21:00)
[2019-08-22] MEDS: Metoprolol Succinate XL 50mg tab ORAL SCH (08:19)
[2019-08-22] MEDS: Aspirin EC 81mg tab ORAL SCH (08:19)
[2019-08-22] MEDS: Tylenol #3 tab (300mg/30mg) ORAL PRN ×3 (08:20→18:42)
[2019-08-22] MEDS: Doxazosin 1mg Tab ORAL SCH (08:20)
[2019-08-22] MEDS: Lisinopril 20mg tab ORAL SCH (08:21)
[2019-08-22] MEDS: Heparin 5000 units/ml inj SUBQ SCH ×2 (08:36→21:01)
[2019-08-22 10:25] LABS: ALANINE AMINOTRANSFERASE 28 U/L (12-78); ALBUMIN 2.7 G/DL (3.4-5.0); ALBUMIN/GLOBULIN RATIO 0.9 (1.0-2.7); ALKALINE PHOSPHATASE 117 U/L (46-116); ANION GAP 6 mmol/L (5-15); ASPARTATE AMINO TRANSFERASE 16 U/L (15-37); BILIRUBIN,TOTAL 0.5 MG/DL (0.2-1.0); BLOOD UREA NITROGEN 26 mg/dL (7-18); CALCIUM 8.3 MG/DL (8.5-10.1); CARBON DIOXIDE 28 MMOL/L (21-32); CHLORIDE 105 MMOL/L (98-107); CREATININE 1.4 MG/DL (0.55-1.30); POTASSIUM 4.9 MMOL/L (3.5-5.1); SODIUM 138 MMOL/L (136-145)
[2019-08-22 11:42] LABS: APPEARANCE,URINE CLEAR; BILIRUBIN, URINE NEGATIVE (NEGATIVE); COLOR,URINE PALE YELLOW; GLUCOSE, URINE (UA) 3+ (NEGATIVE); KETONES,URINE NEGATIVE (NEGATIVE); LEUKOCYTE ESTERASE ,URINE NEGATIVE (NEGATIVE); NITRITE,URINE NEGATIVE (NEGATIVE); PH,URINE 6 (4.5-8.0); PROTEIN,URINE 3+ (NEGATIVE); UROBILINOGEN,URINE NORMAL MG/DL (0.0-1.0)
[2019-08-22 12:00] VITALS: BP 152/71
[2019-08-22 16:00] VITALS: BP 126/61
--- NOTE | 2019-08-22 17:00 | NUR ---
HAND-OFF: Report given to ARLET Gray.
--- NOTE | 2019-08-22 19:40 | NUR ---
NURSE NOTES: Received report from Mabel NICE. Patient in bed, alert, oriented and verbally responsive. No respiratory distress noted. Bed in the lowest position and locked. call light within reach. will continue to provide plan of
[2019-08-22 20:00] VITALS: BP 132/62
[2019-08-22] MEDS: Atorvastatin 80mg tab ORAL SCH (20:59)
[2019-08-23] VITALS: BP 140/82
[2019-08-23 04:00] VITALS: BP 147/83
--- NOTE | 2019-08-23 04:30 | NUR ---
NURSE NOTES: Pt has no IV access. Attempted to insert new iv but it was unsuccessful. made aware.
[2019-08-23] MEDS: NovoLOG Insulin Flexpen SUBQ SCH ×2 (06:26→11:45)
--- NOTE | 2019-08-23 07:28 | NUR ---
NURSE NOTES: received report from ARLET Gray patient in bed,. alert oriented. verbally responsive. no respiratory distress noted. no pain at this time. coughing. no IV. MD is aware. bed in the lowest position and locked. call light within reach. will continue to provide plan of care.
--- NOTE | 2019-08-23 07:35 | NUR ---
HAND-OFF: Report given to ARLET Monroe.
[2019-08-23 08:00] VITALS: BP 132/74
[2019-08-23] MEDS: Tylenol #3 tab (300mg/30mg) ORAL PRN (08:51)
[2019-08-23] MEDS: Aspirin EC 81mg tab ORAL SCH (08:52)
[2019-08-23] MEDS: Doxazosin 1mg Tab ORAL SCH (08:52)
[2019-08-23] MEDS: Magnesium Oxide 400mg tab ORAL SCH (08:52)
[2019-08-23] MEDS: Depakote 125mg Sprinkles ORAL SCH (08:52)
[2019-08-23] MEDS: Lisinopril 20mg tab ORAL SCH (08:52)
[2019-08-23] MEDS: Metoprolol Succinate XL 50mg tab ORAL SCH (08:53)
[2019-08-23] MEDS: Heparin 5000 units/ml inj SUBQ SCH (08:54)
[2019-08-23] MEDS: Promethazine/Codeine 5ml UD ORAL PRN (09:21)
[2019-08-23 12:00] VITALS: BP 136/78
--- NOTE | 2019-08-23 14:12 | NUR ---
NURSE NOTES: patient discharged to home via W/C accompanied by her daughter with stable condition. alert. oriented. verbally responsive. no respiratory distress noted. no coughing. no pain at this time. provided dc packet. checked and counted belongings with patient. obtained sign. removed ID band. assisted patient to the lobby. patient left hospital safely.
--- NOTE | 2019-08-23 22:00 | Discharge Summary ---
DATE OF ADMISSION: 08/19/2019 DATE OF DISCHARGE: 08/23/2019 ADMISSION DIAGNOSES: 1. Pneumonia. 2. Chronic obstructive pulmonary disease exacerbation. 3. Bronchitis. 4. Diabetes. 5. Dehydration. 6. Acute renal failure. DISCHARGE DIAGNOSES: 1. Pneumonia. 2. Chronic obstructive pulmonary disease exacerbation. 3. Bronchitis. 4. Diabetes. 5. Dehydration. 6. Acute renal failure. HOSPITAL COURSE: The patient was admitted with complaints of shortness of breath, cough, and congestion. She had failed outpatient antibiotic therapy for possible bronchitis and pneumonia. She was diagnosed with COPD exacerbation. She received respiratory treatments as well as IV antibiotics. She had mild acute renal failure, which was treated with hydration. On discharge, she was stable. She will be discharged home with close outpatient followup. DISCHARGE MEDICATIONS: Please see discharge medication list for discharge medications. DIET: A cardiac diabetic diet. ACTIVITIES: Ad-carla. FOLLOWUP: The patient will follow up in one to two weeks in the office. Brian Fernandez M.D. DR: AMOS JOB#: [id number] CC:
== END 2019-08-23 14:05 | disposition home or self-care (01) | DRG 190 ==
LOC: 4E 21:07
DX: J44.0 Chronic obstructive pulmonary disease with (acute) lower respiratory infection (principal); J18.9 Pneumonia, unspecified organism; I13.0 Hypertensive heart and chronic kidney disease with heart failure and stage 1 through stage 4 chronic kidney disease, or unspecified chronic kidney disease; N17.9 Acute kidney failure, unspecified; J44.1 Chronic obstructive pulmonary disease with (acute) exacerbation; N18.9 Chronic kidney disease, unspecified; I50.9 Heart failure, unspecified; E86.0 Dehydration; Z86.73 Personal history of transient ischemic attack (TIA), and cerebral infarction without residual deficits; J40 Bronchitis, not specified as acute or chronic; Z88.1 Allergy status to other antibiotic agents; Z88.0 Allergy status to penicillin; Z88.2 Allergy status to sulfonamides
CPT/HCPCS: 36415; 71045; 71250; 80053; 81001; 82962; 83036; 85025; 86710; 87040; 94640; 94664; J1815; J7620

== ENCOUNTER 2020-05-02 10:41 | Inpatient (IN) | payer MEDICARE, MEDICAID ==
[~2020-05-02] VITALS: Ht 147.3 cm; Wt 71.2 kg
[~2020-05-02 10:41] MED LIST changes: +LANSOPRAZOLE30 MG ORAL; +MEMANTINE HCL5 MG PO
--- NOTE | 2020-05-02 13:35 | NUR ---
NURSE NOTES received patient from home direct admit , accompanied by daughter, admitting Dx pneumonia,patient awake, alert oriented 4, ambulatory using a walker,admission routine care rendered, oriented to the unit, plan of care was discussed verbalized understanding, patient is a fall risk, torie holden
[2020-05-02 13:56] VITALS: BP 156/86
[2020-05-02 16:10] VITALS: BP 136/68
[2020-05-02] MEDS: NovoLOG Insulin Flexpen SUBQ SCH ×2 (16:49→21:28)
[2020-05-02] MEDS: Tylenol #3 tab (300mg/30mg) ORAL PRN (17:06)
[2020-05-02] MEDS: Promethazine/Codeine 5ml UD ORAL PRN ×2 (17:06→21:34)
[2020-05-02] MEDS: Levemir Flexpen SUBQ SCH (17:08)
[2020-05-02] MEDS: cefTRIAXone 1 GM in D5W 55 ML IVPB SCH (18:52)
--- NOTE | 2020-05-02 19:04 | NUR ---
NURSE HAND-OFF: Important Events on Shift:[admission] Patient Status: [on going] Diet: [diabetic diet] Pending Orders: [CT chest, CT shoulder] Pending Results/Labs:[sputum] Pending MD notification:[bone] Latest Vital Signs: Temperature 97.7 , Pulse 66 , B/P 136 /68 , Respiratory Rate 18 , O2 SAT 95 , , O2 Flow Rate . Vital Sign Comment: [stable] Latest Kulkarni Fall Score: 45 Fall Risk: High Risk Safety Measures: Call light Within Reach, Bed Alarm Zone 2, Side Rails Side Rails x2, Bed position Low and Locked. Fall Precautions: HIGH RISK FOR FALL Yellow Socks Report given to ELIZABETH Penaloza. Addendum: 05/02/20 at 1913 by LARA TOLENTINO RN RN NURSE HAND-OFF: Important Events on Shift:[admission] Patient Status: [on going] Diet: [diabetic diet] Pending Orders: [NONE] Pending Results/Labs:[sputum] Pending MD notification:[bone] Latest Vital Signs: Temperature 97.7 , Pulse 66 , B/P 136 /68 , Respiratory Rate 18 , O2 SAT 95 , , O2 Flow Rate . Vital Sign Comment: [stable] Latest Kulkarni Fall Score: 45 Fall Risk: High Risk Safety Measures: Call light Within Reach, Bed Alarm Zone 2, Side Rails Side Rails x2, Bed position Low and Locked. Fall Precautions: HIGH RISK FOR FALL Yellow Socks Report given to Ms LUCAS holden RN].
--- NOTE | 2020-05-02 19:30 | NUR ---
NURSE NOTES: RECEIVED PATIENT FROM ARLET BERMUDEZ. PATIENT IS AWAKE, RESTING IN BED, AAOX4, ON ROOM AIR, NO ACUTE DISTRESS NOTED. PATIENT DENIES PAIN AND SOB. WALKER AND COMMODE AT BEDSIDE. PIV ON LEFT FA 22G INTACT AND PATENT. FALL PRECAUTION IMPLEMENTED. YELLOW GOWN, YELLOW SOCKS AND YELLOW ARMBAND IN PLACE, COMMUNICATED WITH STAFF TO PERFORM FREQUENT ROUNDING. ROOM IS CLOSE TO NURSING STATION. BED IS LOCKED AND LOW, BED ALARMS ACTIVE, SIDE RAILS UP X2 AND CALL LIGHT IS WITHIN REACH. 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 WILL CONTINUE TO MONITOR.
[2020-05-02 20:00] VITALS: BP_SYST 117; BP_SYST 135; BP_DIAS 65; BP_DIAS 75
[2020-05-02] MEDS: Heparin 5000 units/ml inj SUBQ SCH (21:00)
[2020-05-02] MEDS: Atorvastatin 80mg tab ORAL SCH (21:21)
[2020-05-02] MEDS: Doxazosin 1mg Tab ORAL SCH (21:21)
[2020-05-03] VITALS: BP 150/67
[2020-05-03 04:00] VITALS: BP 120/68
[2020-05-03] MEDS: Tylenol #3 tab (300mg/30mg) ORAL PRN ×3 (05:35→21:25)
[2020-05-03] MEDS: NovoLOG Insulin Flexpen SUBQ SCH ×4 (06:39→21:40)
--- NOTE | 2020-05-03 07:15 | NUR ---
nurse notes received patient in bed eating breakfast no sign of distress, HL patent, on fall and aspiration precaution, plan of care was discussed verbalized understanding, 4 P;s in progress call light w/n reach, will continue to monitor patient condition .ARLET Hoyt
--- NOTE | 2020-05-03 07:39 | NUR ---
NURSE HAND-OFF: Important Events on Shift: NO ACUTE EVENTS. PATIENT STABLE Patient Status: STABLE Diet: CCHO (MED) Pending Orders: CXR Pending Results/Labs: HA1C Pending MD notification:N/A Latest Vital Signs: Temperature 96.4 , Pulse 78 , B/P 120 /68 , Respiratory Rate 18 , O2 SAT 95 , Room Air, O2 Flow Rate . Vital Sign Comment: STABLE Latest Kulkarni Fall Score: 45 Fall Risk: High Risk Safety Measures: Call light Within Reach, Bed Alarm Zone 1, Side Rails Side Rails x2, Bed position Low and Locked. Fall Precautions: Yellow Socks Yellow Gown Door Sign Patient Fall Education Report given to ARLET BERMUDEZ.
[2020-05-03 08:00] VITALS: BP 120/66
[2020-05-03] MEDS: Aspirin EC 81mg tab ORAL SCH (08:34)
[2020-05-03] MEDS: Metoprolol Succinate XL 50mg tab ORAL SCH (08:34)
[2020-05-03] MEDS: Donepezil 5mg Tab ORAL SCH (08:34)
[2020-05-03] MEDS: Heparin 5000 units/ml inj SUBQ SCH ×2 (08:36→21:24)
[2020-05-03] MEDS: Levemir Flexpen SUBQ SCH ×2 (08:38→17:10)
[2020-05-03] MEDS: Promethazine/Codeine 5ml UD ORAL PRN ×4 (08:39→21:25)
[2020-05-03 09:36] LABS: BASOPHILS % (AUTO) 1.2 % (0.0-2.0); EOSINOPHILS % (AUTO) 4.6 % (0.0-3.0); HEMATOCRIT 33.7 % (37.0-47.0); HEMOGLOBIN 11.6 G/DL (12.0-16.0); LYMPHOCYTES % (AUTO) 49.7 % (20.0-45.0); MEAN CORPUSCULAR VOLUME 91 FL (80-99); MONOCYTES % (AUTO) 10.5 % (1.0-10.0); PLATELET COUNT 155 K/UL (150-450); RED BLOOD COUNT 3.71 M/UL (4.20-5.40); RED CELL DISTRIBUTION WIDTH 13.8 % (11.6-14.8)
--- NOTE | 2020-05-03 09:45 | History and Physical Report ---
DATE OF ADMISSION: 05/02/2020 CHIEF COMPLAINT: Pneumonia. HISTORY OF PRESENT ILLNESS: The patient is a 74-year-old female, well known to me. She has a history of asthma, osteoarthritis, obesity, hypertension, diabetes, nonischemic cardiomyopathy, stroke, and seizure disorder. She initially presented to the office a week ago with complaints of cough and congestion. She was treated with oral antibiotics. The COVID PCR was negative. Symptoms worsened and the patient requested admission for further evaluation, as she was not responding to outpatient therapy. She denies any ill contacts. She has had subjective fevers and chills and a productive cough. PAST MEDICAL HISTORY: As above. PAST SURGICAL HISTORY: Includes prior abdominal surgery. CURRENT MEDICATIONS: Reconciled and reviewed. ALLERGIES: Include Cipro, iodine, penicillin, and sulfa. FAMILY HISTORY: Noncontributory. SOCIAL HISTORY: Negative for tobacco, ethanol, or drugs. REVIEW OF SYSTEMS: GENERAL: Positive for fevers and chills, but no night sweats. HEENT: No headaches or visual changes. CARDIOPULMONARY: No chest pain. Positive for shortness of breath, cough, and congestion. GASTROINTESTINAL: No nausea or vomiting. GENITOURINARY: No urgency or frequency. MUSCULOSKELETAL: No joint pain or swelling. NEUROLOGIC: No history of seizures. PHYSICAL EXAMINATION: VITAL SIGNS: Temperature is 97.9, pulse 64, respirations 21, blood pressure 120/66. GENERAL: The patient is well developed, in no apparent distress. HEENT: Head is normocephalic. Oropharynx is clear. Mucous membranes are moist. There is no jugular venous distention. HEART: Regular rate and rhythm. LUNGS: Significant for left-sided rales. ABDOMEN: Soft, nontender, and nondistended. EXTREMITIES: Without clubbing, cyanosis, or edema. LABORATORY DATA: Labs are pending. Chest x-ray is pending. ASSESSMENT: This is a 74-year-old female with history of diabetes, hypertension, and congestive heart failure, admitted with complaints of cough and congestion suspect secondary to pneumonia. PLAN: 1. IV antibiotics. 2. Followup chest x-rays. 3. Followup cultures. 4. Cardiology, Pulmonary, and Infectious Disease consultations will be obtained. 5. We will continue outpatient diabetic and cardiac regimen. 6. DVT and stress ulcer prophylaxes will also be instituted. 7. Plan of care has been discussed with the patient and her daughter. Brian Fernandez M.D. DR: MAG JOB#: [id number] CC:
[2020-05-03 09:54] LABS: ALBUMIN 2.9 G/DL (3.4-5.0); ALBUMIN/GLOBULIN RATIO 1.1 (1.0-2.7); BILIRUBIN,TOTAL 0.3 MG/DL (0.2-1.0); CALCIUM 8.7 MG/DL (8.5-10.1); CREATININE 1.4 MG/DL (0.55-1.30); POTASSIUM 4.9 MMOL/L (3.5-5.1)
[2020-05-03 12:00] VITALS: BP 140/76
[2020-05-03 16:00] VITALS: BP 114/67
[2020-05-03] MEDS: cefTRIAXone 1 GM in D5W 55 ML IVPB SCH (18:03)
--- NOTE | 2020-05-03 18:15 | Consultation ---
DATE OF CONSULTATION: 05/03/2020 INFECTIOUS DISEASES CONSULTATION This consult is for coverage of Dr. Jaeger. CONSULTING PHYSICIAN: Mauri Marroquin MD. PRIMARY ATTENDING PHYSICIAN: Brian Fernandez MD. REASON FOR CONSULTATION: Pneumonia. HISTORY OF PRESENT ILLNESS: The patient is a 74-year-old white female admitted yesterday from home complaining of cough, congestion. The patient had a visit to primary attending office and got oral antibiotic that did not help her so this time the patient got admitted to get IV antibiotics. PAST MEDICAL HISTORY: Significant for osteoarthritis, hypertension, diabetes mellitus, history of CVA and weakness in the left leg, chronic pain, fibromyalgia. ALLERGIES: Cipro, penicillin, sulfa drugs. MEDICATIONS: Tylenol with codeine, metoprolol, Prevacid, Cymbalta, Aricept, aspirin, Cardura, atorvastatin, ceftriaxone, Levemir, amlodipine, insulin, promethazine with codeine, clonidine. SOCIAL HISTORY: . Denies alcohol, drug abuse, smoking. Lives at home. REVIEW OF SYSTEMS: No fever. Has productive cough. No shortness of breath . No abdominal pain. Has difficulty of walking and walks at home with a walker. PHYSICAL EXAMINATION: VITAL SIGNS: Temperature 98.1, pulse 66, blood pressure 140/76. GENERAL APPEARANCE: No acute distress. HEAD AND NECK: Poor dentition. [place] conjunctiva. HEART: Normal rate. LUNGS: Clear. ABDOMEN: Soft. EXTREMITIES: No edema. NEUROLOGIC: Awake, alert, oriented. LABORATORY AND DIAGNOSTIC DATA: WBC 5, hemoglobin 11.6, hematocrit 33.7, platelets 155. Sodium 140, potassium 4.9, chloride 105, bicarb 28, BUN 40, creatinine 1.4, glucose 179. Hemoglobin A1c 8.3. Chest x-ray shows some congestion. IMPRESSION: 1. Pneumonia. 2. Asthma. 3. COPD. 4. Diabetes mellitus with hyperglycemia. 5. Hypertension. 6. Osteoarthritis. 7. Multiple antibiotic allergies including Cipro, penicillin, and sulfa drugs. RECOMMENDATION: We will continue with ceftriaxone. We will follow up chest x-ray report. We will follow up cultures. At the end of my exam, I thank Dr. Fernandez, for involving me in the care of this patient. Mauri Marroquin M.D. DR: Jey JOB#: [id number] CC: MAHESH
--- NOTE | 2020-05-03 18:40 | NUR ---
NURSE HAND-OFF: Important Events on Shift:[c/o pain ,vomiting and cough prn meds given with relief] Patient Status: [stable] Diet: [CCD M] Pending Orders: [NONE] Pending Results/Labs:[NONE] Pending MD notification:[NONE] Latest Vital Signs: Temperature 96.9 , Pulse 65 , B/P 114 /67 , Respiratory Rate 19 , O2 SAT 95 , Room Air, O2 Flow Rate . Vital Sign Comment: [STABLE] Latest Kulkarni Fall Score: 45 Fall Risk: High Risk Safety Measures: Call light Within Reach, Bed Alarm Zone 1, Side Rails Side Rails x2, Bed position Low and Locked. Fall Precautions: Yellow Socks Yellow Gown Door Sign Patient Fall Education Report given to [[facility] shift]. Addendum: 05/03/20 at 1915 by LARA TOLENTINO RN RN NURSE HAND-OFF: Important Events on Shift:[c/o pain ,vomiting and cough prn meds given with relief] Patient Status: [stable] Diet: [CCD M] Pending Orders: [NONE] Pending Results/Labs:[NONE] Pending MD notification:[NONE] Latest Vital Signs: Temperature 96.9 , Pulse 65 , B/P 114 /67 , Respiratory Rate 19 , O2 SAT 95 , Room Air, O2 Flow Rate . Vital Sign Comment: [STABLE] Latest Kulkarni Fall Score: 45 Fall Risk: High Risk Safety Measures: Call light Within Reach, Bed Alarm Zone 1, Side Rails Side Rails x2, Bed position Low and Locked. Fall Precautions: Yellow Socks Yellow Gown Door Sign Patient Fall Education Report given to [Ms Menon RN NOC shift]. ARLET HECK
--- NOTE | 2020-05-03 19:15 | NUR ---
NURSE NOTES: RECEIVED PATIENT FROM ARLET BERMUDEZ. PATIENT IS AWAKE, RESTING IN BED, AAOX4, ON ROOM AIR, NO ACUTE DISTRESS NOTED. PATIENT DENIES PAIN AND SOB. WALKER AND COMMODE AT BEDSIDE. PIV ON LEFT FA 22G INTACT AND PATENT. FALL PRECAUTION IMPLEMENTED. YELLOW GOWN, YELLOW SOCKS AND YELLOW ARMBAND IN PLACE, COMMUNICATED WITH STAFF TO PERFORM FREQUENT ROUNDING. ROOM IS CLOSE TO NURSING STATION. BED IS LOCKED AND LOW, BED ALARMS ACTIVE, SIDE RAILS UP X2 AND CALL LIGHT IS WITHIN REACH. 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 WILL CONTINUE TO MONITOR.
[2020-05-03 20:00] VITALS: BP 126/91
[2020-05-03] MEDS: Doxazosin 1mg Tab ORAL SCH (21:00)
[2020-05-03] MEDS: Atorvastatin 80mg tab ORAL SCH (21:24)
[2020-05-04] VITALS: BP 120/58
[2020-05-04] MEDS: Tylenol #3 tab (300mg/30mg) ORAL PRN ×3 (02:58→20:12)
[2020-05-04] MEDS: Promethazine/Codeine 5ml UD ORAL PRN ×3 (02:58→20:11)
--- NOTE | 2020-05-04 03:20 | Cardiology Progress Note ---
Subjective DATE OF SERVICE: May 03, 2020 Still with cough and congestion Notes chest pain with cough Objective Last 24 Hour Vital Signs Date Time Temp Pulse Resp B/P (MAP) Pulse Ox O2 Delivery O2 Flow Rate FiO2 05/04/20 00:00 97.6 60 18 120/58 (78) 94 05/03/20 21:00 Room Air 05/03/20 20:00 97.9 68 16 126/91 (103) 93 05/03/20 17:08 65 114/67 05/03/20 16:00 96.9 65 19 114/67 (83) 95 05/03/20 12:00 98.1 66 19 140/76 (97) 95 05/03/20 08:34 64 120/66 05/03/20 08:34 64 120/66 05/03/20 08:30 Room Air 05/03/20 08:00 97.9 64 21 120/66 (84) 95 05/03/20 04:00 96.4 78 18 120/68 (85) 95 ROS: unchanged from my assessment of 05/02/20 HEENT: normal ENT inspection LUNGS: bilateral rhonchi CARDIAC: normal rate, regular rhythm, normal S1 and S2, gallop/S4 ABDOMEN: normal bowel sounds, non tender, soft, no organomegaly, other - healed surgical scar; left lower quadrant hernia Laboratory Tests Test 05/03/20 06:25 05/03/20 11:23 White Blood Count 5.0 K/UL (4.8-10.8) Red Blood Count 3.71 M/UL (4.20-5.40) L Hemoglobin 11.6 G/DL (12.0-16.0) L Hematocrit 33.7 % (37.0-47.0) L Mean Corpuscular Volume 91 FL (80-99) Mean Corpuscular Hemoglobin 31.3 PG (27.0-31.0) H Mean Corpuscular Hemoglobin Concent 34.5 G/DL (32.0-36.0) Red Cell Distribution Width 13.8 % (11.6-14.8) Platelet Count 155 K/UL (150-450) Mean Platelet Volume 6.4 FL (6.5-10.1) L Neutrophils (%) (Auto) 34.0 % (45.0-75.0) L Lymphocytes (%) (Auto) 49.7 % (20.0-45.0) H Monocytes (%) (Auto) 10.5 % (1.0-10.0) H Eosinophils (%) (Auto) 4.6 % (0.0-3.0) H Basophils (%) (Auto) 1.2 % (0.0-2.0) Sodium Level 140 MMOL/L (136-145) Potassium Level 4.9 MMOL/L (3.5-5.1) Chloride Level 105 MMOL/L (98-107) Carbon Dioxide Level 28 MMOL/L (21-32) Anion Gap 8 mmol/L (5-15) Blood Urea Nitrogen 40 mg/dL (7-18) H Creatinine 1.4 MG/DL (0.55-1.30) H Estimat Glomerular Filtration Rate 36.6 mL/min (>60) Glucose Level 179 MG/DL (74-106) H Hemoglobin A1c 8.3 % (4.3-6.0) H Calcium Level 8.7 MG/DL (8.5-10.1) Total Bilirubin 0.3 MG/DL (0.2-1.0) Aspartate Amino Transf (AST/SGOT) 13 U/L (15-37) L Alanine Aminotransferase (ALT/SGPT) 16 U/L (12-78) Alkaline Phosphatase 119 U/L (46-116) H Total Protein 5.6 G/DL (6.4-8.2) L Albumin 2.9 G/DL (3.4-5.0) L Globulin 2.7 g/dL Albumin/Globulin Ratio 1.1 (1.0-2.7) POC Whole Blood Glucose 142 MG/DL (74-106) H Microbiology Date/Time Source Procedure Growth Status 05/02/20 17:10 Sputum Gram Stain - Final Resulted 05/02/20 17:10 Sputum Sputum Culture - Preliminary NORMAL UPPER RESPIRATORY LIZ AT 24 ... 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
[2020-05-04 04:00] VITALS: BP 133/65
--- NOTE | 2020-05-04 06:19 | Diagnostic Imaging Report ---
EXAM: XR Chest, 1 View CLINICAL HISTORY: COUGH TECHNIQUE: Frontal view of the chest. COMPARISON: Chest radiograph on 08/20/2019 FINDINGS: Hardware: None. Lungs/pleura: Low lung volumes. Mild bibasilar atelectasis. Focal opacity in the left midlung. No pleural effusion or pneumothorax. Heart/mediastinum: Stable mild enlargement of the cardiac silhouette. Atherosclerotic calcifications in the aorta. Soft tissues: Unremarkable. Bones: No acute fracture. Degenerative changes of the spine. Upper abdomen: Normal. IMPRESSION: Opacity in the left midlung may represent atelectasis versus pneumonia.
[2020-05-04] MEDS: NovoLOG Insulin Flexpen SUBQ SCH ×4 (06:30→20:17)
--- NOTE | 2020-05-04 07:00 | NUR ---
NURSE NOTES: Report received from Genesis, RN. Patient awake, alert, and oriented x4. Seen lying in bed with HOB elevated, currently on room air, no s/sx of SOB/Distress, no c/o any pain of pain or discomfort. IV site located on left forearm gauge 22. Asymptomatic, inplace and intact. Bed placed on lowest and locked, call light placed within reach and will continue to monitor.
--- NOTE | 2020-05-04 07:43 | NUR ---
HAND-OFF: Report given to ARLET Cunningham.
[2020-05-04 09:00] VITALS: BP 133/63
[2020-05-04] MEDS: Aspirin EC 81mg tab ORAL SCH (09:21)
[2020-05-04] MEDS: Metoprolol Succinate XL 50mg tab ORAL SCH (09:21)
[2020-05-04] MEDS: Heparin 5000 units/ml inj SUBQ SCH ×2 (09:25→20:17)
[2020-05-04] MEDS: Donepezil 5mg Tab ORAL SCH (10:25)
[2020-05-04] MEDS: Levemir Flexpen SUBQ SCH ×2 (10:26→17:22)
--- NOTE | 2020-05-04 11:55 | Infectious Diseases Prog Note ---
Assessment/Plan Assessment/Plan IMPRESSION: 1. Pneumonia. 2. Asthma. 3. COPD. 4. Diabetes mellitus with hyperglycemia. 5. Hypertension. 6. Osteoarthritis. 7. Multiple antibiotic allergies including Cipro, penicillin, and sulfa drugs. RECOMMENDATION: We will continue with ceftriaxone. We will follow up cultures. Subjective ROS Limited/Unobtainable: No Constitutional: Reports: no symptoms Respiratory: Reports: productive cough Gastrointestinal/Abdominal: Reports: nausea, vomiting Allergies: Coded Allergies: CIPROFLOXACIN (Verified Allergy, Unknown, RASH, 01/17/11) IODINE (Verified Allergy, Unknown, 09/20/10) IV DYE, IODINE CONTAINING (Verified Allergy, Unknown, SHOCK, 01/17/11) PENICILLINS (Verified Allergy, Unknown, 09/20/10) SULFA (SULFONAMIDE ANTIBIOTICS) (Verified Allergy, Unknown, RASH, 01/17/11) Objective Last 24 Hour Vital Signs Date Time Temp Pulse Resp B/P (MAP) Pulse Ox O2 Delivery O2 Flow Rate FiO2 05/04/20 09:22 67 135/60 05/04/20 09:21 67 135/60 05/04/20 09:00 Room Air 05/04/20 09:00 97.2 67 20 133/63 (86) 94 05/04/20 04:00 97.8 64 16 133/65 (87) 94 05/04/20 00:00 97.6 60 18 120/58 (78) 94 05/03/20 21:00 Room Air 05/03/20 20:00 97.9 68 16 126/91 (103) 93 05/03/20 17:08 65 114/67 05/03/20 16:00 96.9 65 19 114/67 (83) 95 05/03/20 12:00 98.1 66 19 140/76 (97) 95 Height (Feet): 4 Height (Inches): 10.00 Weight (Pounds): 149 General Appearance: no acute distress HEENT: mucous membranes moist Respiratory/Chest: lungs clear Cardiovascular: normal rate Abdomen: soft, non tender Extremities: no edema Neurologic/Psychiatric: alert, oriented x 3, responsive Microbiology Date/Time Source Procedure Growth Status 05/02/20 17:10 Sputum Gram Stain - Final Complete 05/02/20 17:10 Sputum Sputum Culture - Final NORMAL UPPER RESPIRATORY LIZ AT 48 ... Complete Current Medications Medications (Trade) Dose Ordered Sig/Adin Route PRN Reason Start Time Stop Time Status Last Admin Dose Admin Acetaminophen/ Codeine Phosphate (Tylenol #3) 1 tab EVERY 4 HOURS PRN ORAL For Pain 05/03/20 16:00 05/09/20 14:44 05/04/20 02:58 Amlodipine Besylate (Norvasc) 5 mg BID ORAL 05/02/20 18:00 06/01/20 17:59 05/04/20 09:22 Aspirin (Ecotrin) 81 mg DAILY ORAL 05/03/20 09:00 06/17/20 08:59 05/04/20 09:21 Atorvastatin Calcium (Lipitor) 80 mg BEDTIME ORAL 05/02/20 21:00 07/31/20 20:59 05/03/20 21:24 Ceftriaxone Sodium 1 gm/ Dextrose 55 ml @ 110 mls/hr Q24H IVPB 05/02/20 19:00 05/09/20 18:59 05/03/20 18:03 Clonidine HCl (Catapres Tab) 0.1 mg Q4H PRN ORAL For High Blood Pressure 05/02/20 14:45 07/31/20 14:44 Dextrose (Dextrose 50%) 25 ml Q30M PRN IV Hypoglycemia 05/02/20 14:45 07/31/20 14:44 Dextrose (Dextrose 50%) 50 ml Q30M PRN IV Hypoglycemia 05/02/20 14:45 07/31/20 14:44 Donepezil HCl (Aricept) 5 mg DAILY ORAL 05/03/20 09:00 06/02/20 08:59 05/04/20 10:25 Doxazosin Mesylate (Cardura) 2 mg QHS ORAL 05/02/20 21:00 06/01/20 20:59 05/02/20 21:21 Duloxetine HCl (Cymbalta) 40 mg DAILY ORAL 05/03/20 09:00 08/01/20 08:59 05/04/20 09:21 Heparin Sodium (Porcine) (Heparin 5000 units/ml) 5,000 units EVERY 12 HOURS SUBQ 05/02/20 21:00 06/16/20 20:59 05/04/20 09:25 Insulin Aspart (NovoLOG) BEFORE MEALS AND HS SUBQ 05/02/20 16:30 07/31/20 16:29 05/03/20 21:40 Insulin Detemir (Levemir) 8 units BID SUBQ 05/02/20 18:00 07/31/20 17:59 05/04/20 10:26 Lansoprazole (Prevacid) 30 mg DAILY ORAL 05/03/20 09:00 06/02/20 08:59 05/04/20 09:21 Metoprolol Succinate (Toprol XL) 50 mg DAILY ORAL 05/03/20 09:00 08/01/20 08:59 05/04/20 09:21 Ondansetron HCl (Zofran) 4 mg Q6H PRN IVP Nausea & Vomiting 05/02/20 14:45 06/01/20 14:44 05/04/20 10:25 Promethazine HCl/ Codeine (Phenergan with Codeine) 5 ml Q4H PRN ORAL For Cough 05/02/20 14:45 06/01/20 14:44 05/04/20 10:27 Sodium Chloride 1,000 ml @ 75 mls/hr [id number] IV 05/04/20 03:15 06/03/20 03:14 05/04/20 04:25 Mauri Marroquin MD May 04, 2020 11:55
[2020-05-04 12:00] VITALS: BP 143/81
--- NOTE | 2020-05-04 12:30 | NUR ---
CASE MANAGEMENT:REVIEW DIRECT ADMIT SI: PNA. ASTHMA. COPD 98.0 68 20 156/86 95% ON RA H/H-11.6/33.7 BUN+40 CR+1.4 IS: IV ROCEPHIN Q24 LEVEMIR SQ NORVASC PO BID CARDURA PO QHS ASA PO QD HEPARIN SQ Q12 TOPROL XL PO QD IVF@75/HR : MED/SURG STATUS 4 EAST
[2020-05-04] MEDS ORDERED: Heparin1,000 units/500ml Premix(Conc:2 units/ml) IV PRN (15:45)
[2020-05-04] MEDS ORDERED: Lidocaine 1% Plain 30 ml INJ PRN (15:45)
[2020-05-04 16:00] VITALS: BP 126/84
--- NOTE | 2020-05-04 18:36 | General Progress Note ---
Subjective ROS Limited/Unobtainable: No Constitutional: Reports: malaise, weakness HEENT: Reports: no symptoms Cardiovascular: Reports: no symptoms Respiratory: Reports: cough, shortness of breath, sputum Gastrointestinal/Abdominal: Reports: no symptoms Genitourinary: Reports: no symptoms Neurologic/Psychiatric: Reports: no symptoms Endocrine: Reports: no symptoms Hematologic/Lymphatic: Reports: anemia Allergies: Coded Allergies: CIPROFLOXACIN (Verified Allergy, Unknown, RASH, 01/17/11) IODINE (Verified Allergy, Unknown, 09/20/10) IV DYE, IODINE CONTAINING (Verified Allergy, Unknown, SHOCK, 01/17/11) PENICILLINS (Verified Allergy, Unknown, 09/20/10) SULFA (SULFONAMIDE ANTIBIOTICS) (Verified Allergy, Unknown, RASH, 01/17/11) All Systems: reviewed and negative except above Subjective no complaints. less cough. no fever or chills. no sob. tolerating po. cxr with left sided infiltrate Objective Last 24 Hour Vital Signs Date Time Temp Pulse Resp B/P (MAP) Pulse Ox O2 Delivery O2 Flow Rate FiO2 05/04/20 17:20 61 126/84 05/04/20 12:00 97.7 60 20 143/81 (101) 93 05/04/20 09:22 67 135/60 05/04/20 09:21 67 135/60 05/04/20 09:00 Room Air 05/04/20 09:00 97.2 67 20 133/63 (86) 94 05/04/20 04:00 97.8 64 16 133/65 (87) 94 05/04/20 00:00 97.6 60 18 120/58 (78) 94 05/03/20 21:00 Room Air 05/03/20 20:00 97.9 68 16 126/91 (103) 93 Intake and Output 05/03/20 05/04/20 19:00 07:00 Intake Total 240 ml Balance 240 ml Intake Oral 240 ml # Voids 5 1 # Bowel Movements 1 Height (Feet): 4 Height (Inches): 10.00 Weight (Pounds): 149 General Appearance: WD/WN, alert, confused EENT: PERRL/EOMI Neck: non-tender, normal alignment, supple Cardiovascular: normal peripheral pulses, normal rate Respiratory/Chest: chest wall non-tender, lungs clear, normal breath sounds, no respiratory distress Abdomen: normal bowel sounds, non tender, soft, no organomegaly, no mass Edema: no edema noted Arm (L), no edema noted Arm (R) Edema: trace edema 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
[2020-05-04] MEDS: cefTRIAXone 1 GM in D5W 55 ML IVPB SCH (19:00)
--- NOTE | 2020-05-04 19:21 | NUR ---
NURSE HAND-OFF: Important Events on Shift:PICC consent obtained Patient Status: stable Diet: CCHO M Pending Orders: N/A Pending Results/Labs:N/A Pending MD notification:N/A Latest Vital Signs: Temperature 98.4 , Pulse 61 , B/P 126 /84 , Respiratory Rate 20 , O2 SAT 92 , Room Air, O2 Flow Rate . Vital Sign Comment: STABLE Latest Kulkarni Fall Score: 45 Fall Risk: High Risk Safety Measures: Call light Within Reach, Bed Alarm Zone 1, Side Rails Side Rails x2, Bed position Low and Locked. Fall Precautions: Yellow Socks Yellow Gown Door Sign Patient Fall Education Report given to ARLET Colbert.
--- NOTE | 2020-05-04 19:30 | NUR ---
NURSE NOTES: Received report from torie poe. patient on bed,awake and verbally responsive. on room air. no sob. per deeipka, "no IV. md is aware". with picc line order on 05/06. consent signed. ambulates with a walker. denies any pain or discomfort. reiterated to call and ask for assistance. call light and light button within easy reach. bed locked and in lowest position.will continue plan of care.
[2020-05-04 20:00] VITALS: BP 123/66
[2020-05-04] MEDS: Dyna-Hex 2% Top Sol 2oz TOPIC SCH (20:00)
[2020-05-04] MEDS: Atorvastatin 80mg tab ORAL SCH (20:12)
[2020-05-04] MEDS: Doxazosin 1mg Tab ORAL SCH (20:12)
--- NOTE | 2020-05-04 21:25 | Cardiology Progress Note ---
Subjective DATE OF SERVICE: May 04, 2020 Still with cough and congestion, but decreasing. Notes chest pain with cough CXR: left infiltrate BP parameters stable O2 sats 92-94% on room air Objective Last 24 Hour Vital Signs Date Time Temp Pulse Resp B/P (MAP) Pulse Ox O2 Delivery O2 Flow Rate FiO2 05/04/20 20:00 98.4 71 20 123/66 (85) 96 05/04/20 17:20 61 126/84 05/04/20 16:00 98.4 61 20 126/84 (98) 92 05/04/20 12:00 97.7 60 20 143/81 (101) 93 05/04/20 09:22 67 135/60 05/04/20 09:21 67 135/60 05/04/20 09:00 Room Air 05/04/20 09:00 97.2 67 20 133/63 (86) 94 05/04/20 04:00 97.8 64 16 133/65 (87) 94 05/04/20 00:00 97.6 60 18 120/58 (78) 94 ROS: unchanged from my assessment of 05/02/20 HEENT: normal ENT inspection LUNGS: bilateral rhonchi CARDIAC: normal rate, regular rhythm, normal S1 and S2, gallop/S4 ABDOMEN: normal bowel sounds, non tender, soft, no organomegaly, other - healed surgical scar; left lower quadrant hernia Microbiology Date/Time Source Procedure Growth Status 05/02/20 17:10 Sputum Gram Stain - Final Complete 05/02/20 17:10 Sputum Sputum Culture - Final NORMAL UPPER RESPIRATORY LIZ AT 48 ... Complete Assessment/Plan Assessment/Plan Community acquired pneumonia Hypoxia Hypertension/HHD Non-ischemic cardiomyopathy Non-sustained ventricular ectopy IRDM with neuropathy Hx enterocutaneous fistula Diverticular disease Degenerative disk disease Abnormal gait Acute kidney disease Abx respiratory rx insulin titration maintain BBlocker therapy IVF hydration - tapering off Titrate anti HTN meds; trend BNP O2 suppl Eder Mariano MD May 04, 2020 21:25
[2020-05-05] VITALS: BP 117/50
--- NOTE | 2020-05-05 00:30 | Consultation ---
DATE OF CONSULTATION: 05/02/2020 CARDIOLOGY CONSULTATION CONSULTING PHYSICIAN: Eder Mariano MD. REFERRING PHYSICIAN: Brian Fernandez MD. REASON FOR CONSULTATION: Shortness of breath in the setting of cardiomyopathy and acute respiratory infection. HISTORY OF PRESENT ILLNESS: This is a 74-year-old white female. She is known to me from of cardiovascular care. She has a nonischemic cardiomyopathy with normal ejection fraction and a history of ventricular arrhythmia. She was seen by Dr. Fernandez last week with complaints of cough and congestion as well as fevers. She had a COVID-19 workup that was negative. She was treated with oral antimicrobials, she failed to improve. Hospitalization was initiated. She continues to complain of cough, congestion, sputum, and shortness of breath. She has not had chest pressure. She does have chest discomfort with her coughing. She notes some leg and ankle swelling, but not of much severity. PAST MEDICAL HISTORY: Includes osteoarthritis, COPD, degenerative disc disease, diverticulosis, nonischemic cardiomyopathy, insulin-requiring diabetes mellitus, diabetic neuropathy, cerebrovascular disease with history of CVA, seizure disorder, nonsustained ventricular ectopy, history of oophorectomy for cyst with complications subsequently that included an enterocutaneous fistula, protein-calorie malnutrition. ALLERGIES: Multiple and include iodine, penicillin, sulfa, and . FAMILY HISTORY: Noncontributory. SOCIAL HISTORY: Prior smoker. No alcohol or substance abuse. MEDICATIONS: Prior to admission, reviewed and reconciled. REVIEW OF SYSTEMS: Fevers and chills noted. No headaches or visual disturbances. There is a history of retinopathy however. No seizures. Diabetes managed with insulin. Anti-lipid therapy on board. No known history of thyroid impairment. No recent use of steroids. She is not presently smoking. Her recent echocardiogram revealed ejection fraction of 55%, concentric hypertrophy, and no pulmonary hypertension. There is no history of sustained ventricular arrhythmias, but nonsustained ventricular tachycardia. She has not had any bleeding per rectum although there is a history of diverticulosis. She is continent of urine. PHYSICAL EXAMINATION: VITAL SIGNS: Afebrile, blood pressure 120/66, heart rate 64, respirations 21. HEENT: Temporal wasting. Arcus senilis. Oropharynx clear. NECK: Supple. Jugular venous pressure normal. LUNGS: Bilateral rales, left-sided predominantly. CARDIAC: Reveals regular rhythm and rate. Normal S1, S2 with a fourth heart sound. ABDOMEN: Soft, nontender. Healed surgical scar. EXTREMITIES: No clubbing, cyanosis, no edema. There is distal muscle atrophy. LABORATORY DATA: Pending. IMPRESSION: 1. Community-acquired pneumonia. 2. Recent COVID-19 negative swab. 3. Hypertensive heart disease with controlled blood pressure. 4. Diastolic dysfunction with chronic congestive heart failure. 5. Insulin-requiring diabetes mellitus. 6. Nonsustained ventricular arrhythmias. PLAN: 1. Check oxygen saturation. 2. Nasal oxygen as needed. 3. Bronchodilators. 4. Empiric antimicrobials. 5. DVT prophylaxis. 6. Hydrate cautiously. 7. Maintain baseline cardiovascular regimen withhold parameters for low blood pressure. 8. We will follow. Eder Mariano M.D. DR: ALEKS JOB#: [id number] CC:
[2020-05-05 04:00] VITALS: BP 136/69
[2020-05-05] MEDS: Promethazine/Codeine 5ml UD ORAL PRN ×3 (04:48→20:21)
[2020-05-05] MEDS: Tylenol #3 tab (300mg/30mg) ORAL PRN ×3 (04:49→20:20)
[2020-05-05] MEDS: NovoLOG Insulin Flexpen SUBQ SCH ×4 (05:39→20:19)
[2020-05-05 06:10] LABS: BASOPHILS % (AUTO) 1.7 % (0.0-2.0); HEMATOCRIT 31.9 % (37.0-47.0); HEMOGLOBIN 10.6 G/DL (12.0-16.0); LYMPHOCYTES % (AUTO) 50.8 % (20.0-45.0); MEAN CORPUSCULAR VOLUME 92 FL (80-99); MONOCYTES % (AUTO) 11.2 % (1.0-10.0); NEUTROPHILS % (AUTO) 32.2 % (45.0-75.0); PLATELET COUNT 151 K/UL (150-450); RED BLOOD COUNT 3.46 M/UL (4.20-5.40); RED CELL DISTRIBUTION WIDTH 13.4 % (11.6-14.8); WHITE BLOOD COUNT 5.5 K/UL (4.8-10.8)
--- NOTE | 2020-05-05 06:24 | NUR ---
NURSE HAND-OFF: Important Events on Shift: pain mngt and cough mngt; safety; received pt with no iv; pt still with no iv Patient Status: stable Diet:ccho medium Pending Orders: picc line placement on 05/06 Pending Results/Labs:pendinglab result Pending MD notification: Latest Vital Signs: Temperature 98.5 , Pulse 62 , B/P 136 /69 , Respiratory Rate 18 , O2 SAT 96 , Room Air, O2 Flow Rate . Vital Sign Comment: Latest Kulkarni Fall Score: 45 Fall Risk: High Risk Safety Measures: Call light Within Reach, Bed Alarm Zone 1, Side Rails Side Rails x2, Bed position Low and Locked. Fall Precautions: Yellow Socks Yellow Gown Door Sign Patient Fall Education Addendum: 05/05/20 at 0722 by Daija Ratliff RN HAND-OFF: Report given to torie poe.
[2020-05-05 06:39] LABS: ALBUMIN 2.7 G/DL (3.4-5.0); ALBUMIN/GLOBULIN RATIO 0.9 (1.0-2.7); BILIRUBIN,TOTAL 0.3 MG/DL (0.2-1.0); CALCIUM 8.7 MG/DL (8.5-10.1); CREATININE 1.6 MG/DL (0.55-1.30); POTASSIUM 5.1 MMOL/L (3.5-5.1)
--- NOTE | 2020-05-05 07:40 | NUR ---
NURSE NOTES: Received report from ARLET Colbert. Patient observed to be awake, alert and oriented x4. Seen lying in bed, no s/sx of SOB/Distress, no c/o any pain or gi/gu discomfort. No IV access PICC line to be inserted tomorrow. Bed placed on lowest and locked. Will continue to monitor for any changes in condition.
[2020-05-05 08:00] VITALS: BP 114/59
[2020-05-05] MEDS: Metoprolol Succinate XL 50mg tab ORAL SCH ×2 (09:00→09:21)
[2020-05-05] MEDS: Aspirin EC 81mg tab ORAL SCH (09:21)
[2020-05-05] MEDS: Donepezil 5mg Tab ORAL SCH (09:21)
[2020-05-05] MEDS: Heparin 5000 units/ml inj SUBQ SCH ×2 (09:22→20:21)
[2020-05-05] MEDS: Levemir Flexpen SUBQ SCH ×2 (09:24→17:13)
--- NOTE | 2020-05-05 11:03 | General Progress Note ---
Subjective ROS Limited/Unobtainable: No Constitutional: Reports: malaise, weakness HEENT: Reports: no symptoms Cardiovascular: Reports: no symptoms Respiratory: Reports: cough, shortness of breath, sputum Gastrointestinal/Abdominal: Reports: no symptoms Genitourinary: Reports: no symptoms Neurologic/Psychiatric: Reports: no symptoms Endocrine: Reports: no symptoms Hematologic/Lymphatic: Reports: no symptoms Allergies: Coded Allergies: CIPROFLOXACIN (Verified Allergy, Unknown, RASH, 01/17/11) IODINE (Verified Allergy, Unknown, 09/20/10) IV DYE, IODINE CONTAINING (Verified Allergy, Unknown, SHOCK, 01/17/11) PENICILLINS (Verified Allergy, Unknown, 09/20/10) SULFA (SULFONAMIDE ANTIBIOTICS) (Verified Allergy, Unknown, RASH, 01/17/11) All Systems: reviewed and negative except above Subjective no complaints. less cough. no fever or chills. no sob. tolerating po. cxr with left sided infiltrate. on iv abx. cr slightly higher Objective Last 24 Hour Vital Signs Date Time Temp Pulse Resp B/P (MAP) Pulse Ox O2 Delivery O2 Flow Rate FiO2 05/05/20 09:00 67 114/59 05/05/20 09:00 67 114/59 05/05/20 09:00 Room Air 05/05/20 08:00 97.7 67 20 114/59 (77) 95 05/05/20 05:19 98.5 05/05/20 04:00 97.8 62 18 136/69 (91) 96 05/05/20 00:00 98.5 68 20 117/50 (72) 96 05/04/20 21:00 Room Air 05/04/20 20:42 98.4 05/04/20 20:00 98.4 71 20 123/66 (85) 96 05/04/20 17:20 61 126/84 05/04/20 16:00 98.4 61 20 126/84 (98) 92 05/04/20 12:00 97.7 60 20 143/81 (101) 93 Intake and Output 05/04/20 05/05/20 19:00 07:00 Intake Total 720 ml 300 ml Balance 720 ml 300 ml Intake Oral 720 ml 300 ml # Voids 5 5 Laboratory Tests 05/05/20 05:37: White Blood Count 5.5, Red Blood Count 3.46L, Hemoglobin 10.6L, Hematocrit 31.9L , Mean Corpuscular Volume 92, Mean Corpuscular Hemoglobin 30.6, Mean Corpuscular Hemoglobin Concent 33.1, Red Cell Distribution Width 13.4, Platelet Count 151, Mean Platelet Volume 7.3, Neutrophils (%) (Auto) 32.2L, Lymphocytes (%) (Auto) 50.8H, Monocytes (%) (Auto) 11.2H, Eosinophils (%) (Auto) 4.0H, Basophils (%) (Auto) 1.7, Sodium Level 138, Potassium Level 5.1, Chloride Level 105, Carbon Dioxide Level 27, Anion Gap 6, Blood Urea Nitrogen 40H, Creatinine 1.6H, Estimat Glomerular Filtration Rate 31.3, Glucose Level 121H, Calcium Level 8.7, Magnesium Level 1.9, Total Bilirubin 0.3, Aspartate Amino Transf (AST/SGOT) 17, Alanine Aminotransferase (ALT/SGPT) 17, Alkaline Phosphatase 109, Pro-B-Type Natriuretic Peptide 511H, Total Protein 5.8L, Albumin 2.7L, Globulin 3.1, Albumin/Globulin Ratio 0.9L Height (Feet): 4 Height (Inches): 10.00 Weight (Pounds): 149 General Appearance: WD/WN, alert Neck: normal alignment, supple Cardiovascular: normal rate Respiratory/Chest: chest wall non-tender, lungs clear, normal breath sounds, no respiratory distress, no accessory muscle use Abdomen: normal bowel sounds, non tender, soft, no organomegaly, no mass Edema: no edema noted Arm (L), no edema noted Arm (R) Neurologic: cover cutter II-XII grossly normal, alert, oriented x 3, responsive Lymphatic: normal anterior cervical (L), normal anterior cervical (R) Assessment/Plan Problem List: (1) Sepsis ICD Codes: A41.9 - Sepsis, unspecified organism SNOMED: 33605331 (2) PNA (pneumonia) ICD Codes: J18.9 - Pneumonia, unspecified organism SNOMED: 201087250 (3) hypertension Status: stable, progressing Assessment/Plan: iv abx cultures- nml andrew swallow eval resp care bp rx pt/ot o2 resp rx skin care antiplt monitor renal fxn monitor cxr Brian Fernandez MD May 05, 2020 11:03
[2020-05-05 12:00] VITALS: BP 121/54
--- NOTE | 2020-05-05 13:49 | Infectious Diseases Prog Note ---
Assessment/Plan Assessment/Plan antibiotics : ceftriaxone A 1. pneumonia 2. diabetes mellitus 3. hypertension 4. asthma 5. COPD P 1. continue ceftriaxone 2. COVID 19 test 3. isolation 4. will follow up cultures Subjective Constitutional: Denies: fever, chills Respiratory: Reports: shortness of breath, dry cough Gastrointestinal/Abdominal: Reports: nausea, vomiting; Denies: diarrhea Musculoskeletal: Reports: pain Allergies: Coded Allergies: CIPROFLOXACIN (Verified Allergy, Unknown, RASH, 01/17/11) IODINE (Verified Allergy, Unknown, 09/20/10) IV DYE, IODINE CONTAINING (Verified Allergy, Unknown, SHOCK, 01/17/11) PENICILLINS (Verified Allergy, Unknown, 09/20/10) SULFA (SULFONAMIDE ANTIBIOTICS) (Verified Allergy, Unknown, RASH, 01/17/11) Objective Last 24 Hour Vital Signs Date Time Temp Pulse Resp B/P (MAP) Pulse Ox O2 Delivery O2 Flow Rate FiO2 05/05/20 12:00 97.7 70 20 121/54 (76) 95 05/05/20 09:00 67 114/59 05/05/20 09:00 67 114/59 05/05/20 09:00 Room Air 05/05/20 08:00 97.7 67 20 114/59 (77) 95 05/05/20 05:19 98.5 05/05/20 04:00 97.8 62 18 136/69 (91) 96 05/05/20 00:00 98.5 68 20 117/50 (72) 96 05/04/20 21:00 Room Air 05/04/20 20:42 98.4 05/04/20 20:00 98.4 71 20 123/66 (85) 96 05/04/20 17:20 61 126/84 05/04/20 16:00 98.4 61 20 126/84 (98) 92 Height (Feet): 4 Height (Inches): 10.00 Weight (Pounds): 149 Respiratory/Chest: lungs clear Cardiovascular: normal rate, regular rhythm, no gallop/murmur Abdomen: soft, non tender Extremities: other - + edema Microbiology Date/Time Source Procedure Growth Status 05/02/20 17:10 Sputum Gram Stain - Final Complete 05/02/20 17:10 Sputum Sputum Culture - Final NORMAL UPPER RESPIRATORY ILZ AT 48 ... Complete Laboratory Tests Test 05/05/20 05:37 05/05/20 11:14 White Blood Count 5.5 K/UL (4.8-10.8) Red Blood Count 3.46 M/UL (4.20-5.40) L Hemoglobin 10.6 G/DL (12.0-16.0) L Hematocrit 31.9 % (37.0-47.0) L Mean Corpuscular Volume 92 FL (80-99) Mean Corpuscular Hemoglobin 30.6 PG (27.0-31.0) Mean Corpuscular Hemoglobin Concent 33.1 G/DL (32.0-36.0) Red Cell Distribution Width 13.4 % (11.6-14.8) Platelet Count 151 K/UL (150-450) Mean Platelet Volume 7.3 FL (6.5-10.1) Neutrophils (%) (Auto) 32.2 % (45.0-75.0) L Lymphocytes (%) (Auto) 50.8 % (20.0-45.0) H Monocytes (%) (Auto) 11.2 % (1.0-10.0) H Eosinophils (%) (Auto) 4.0 % (0.0-3.0) H Basophils (%) (Auto) 1.7 % (0.0-2.0) Sodium Level 138 MMOL/L (136-145) Potassium Level 5.1 MMOL/L (3.5-5.1) Chloride Level 105 MMOL/L (98-107) Carbon Dioxide Level 27 MMOL/L (21-32) Anion Gap 6 mmol/L (5-15) Blood Urea Nitrogen 40 mg/dL (7-18) H Creatinine 1.6 MG/DL (0.55-1.30) H Estimat Glomerular Filtration Rate 31.3 mL/min (>60) Glucose Level 121 MG/DL (74-106) H Calcium Level 8.7 MG/DL (8.5-10.1) Magnesium Level 1.9 MG/DL (1.8-2.4) Total Bilirubin 0.3 MG/DL (0.2-1.0) Aspartate Amino Transf (AST/SGOT) 17 U/L (15-37) Alanine Aminotransferase (ALT/SGPT) 17 U/L (12-78) Alkaline Phosphatase 109 U/L (46-116) Pro-B-Type Natriuretic Peptide 511 pg/mL (0-125) H Total Protein 5.8 G/DL (6.4-8.2) L Albumin 2.7 G/DL (3.4-5.0) L Globulin 3.1 g/dL Albumin/Globulin Ratio 0.9 (1.0-2.7) L POC Whole Blood Glucose 145 MG/DL (74-106) H Current Medications Medications (Trade) Dose Ordered Sig/Adin Route PRN Reason Start Time Stop Time Status Last Admin Dose Admin Acetaminophen/ Codeine Phosphate (Tylenol #3) 1 tab EVERY 4 HOURS PRN ORAL For Pain 05/03/20 16:00 05/09/20 14:44 05/05/20 10:01 Amlodipine Besylate (Norvasc) 5 mg BID ORAL 05/02/20 18:00 06/01/20 17:59 05/05/20 09:00 Aspirin (Ecotrin) 81 mg DAILY ORAL 05/03/20 09:00 06/17/20 08:59 05/05/20 09:21 Atorvastatin Calcium (Lipitor) 80 mg BEDTIME ORAL 05/02/20 21:00 07/31/20 20:59 05/04/20 20:12 Ceftriaxone Sodium 1 gm/ Dextrose 55 ml @ 110 mls/hr Q24H IVPB 05/02/20 19:00 05/09/20 18:59 05/03/20 18:03 Chlorhexidine Gluconate (Janessa-Hex 2%) 1 applic DAILY@2000 TOPIC 05/04/20 20:00 08/02/20 19:59 Clonidine HCl (Catapres Tab) 0.1 mg Q4H PRN ORAL For High Blood Pressure 05/02/20 14:45 07/31/20 14:44 Dextrose (Dextrose 50%) 25 ml Q30M PRN IV Hypoglycemia 05/02/20 14:45 07/31/20 14:44 Dextrose (Dextrose 50%) 50 ml Q30M PRN IV Hypoglycemia 05/02/20 14:45 07/31/20 14:44 Donepezil HCl (Aricept) 5 mg DAILY ORAL 05/03/20 09:00 06/02/20 08:59 05/05/20 09:21 Doxazosin Mesylate (Cardura) 2 mg QHS ORAL 05/02/20 21:00 06/01/20 20:59 05/04/20 20:12 Duloxetine HCl (Cymbalta) 40 mg DAILY ORAL 05/03/20 09:00 08/01/20 08:59 05/05/20 09:21 Heparin Sodium (Porcine) (Heparin 5000 units/ml) 5,000 units EVERY 12 HOURS SUBQ 05/02/20 21:00 06/16/20 20:59 05/05/20 09:22 Heparin Sodium/ Sodium Chloride (Heparin 1000 units/500ml Premix) 1,000 unit ONCE PRN IV picc line placement 05/04/20 15:45 05/06/20 15:44 Insulin Aspart (NovoLOG) BEFORE MEALS AND HS SUBQ 05/02/20 16:30 07/31/20 16:29 05/05/20 11:55 Insulin Detemir (Levemir) 8 units BID SUBQ 05/02/20 18:00 07/31/20 17:59 05/05/20 09:24 Lansoprazole (Prevacid) 30 mg DAILY ORAL 05/03/20 09:00 06/02/20 08:59 05/05/20 09:21 Lidocaine HCl (Xylocaine 1% 30ml) 30 ml ONCE PRN INJ picc line placement 05/04/20 15:45 05/06/20 15:44 Metoprolol Succinate (Toprol XL) 50 mg DAILY ORAL 05/03/20 09:00 08/01/20 08:59 05/05/20 09:00 Ondansetron HCl (Zofran) 4 mg Q6H PRN IVP Nausea & Vomiting 05/02/20 14:45 06/01/20 14:44 05/04/20 10:25 Promethazine HCl/ Codeine (Phenergan with Codeine) 5 ml Q4H PRN ORAL For Cough 05/02/20 14:45 06/01/20 14:44 05/05/20 04:48 Sodium Chloride 1,000 ml @ 50 mls/hr Q20H IV 05/04/20 03:15 06/03/20 03:14 05/04/20 04:25 Monica Jaeger MD May 05, 2020 13:49
[2020-05-05 16:00] VITALS: BP 139/69
[2020-05-05] MEDS: cefTRIAXone 1 GM in D5W 55 ML IVPB SCH (18:50)
--- NOTE | 2020-05-05 19:20 | NUR ---
NURSE NOTES: Received report from torie poe. patient on bed awake and verbally responsive. on 02 cannula at 2lpm. no c/o of sob. still with no IV. scheduled to have picc line insertion tomorrow. consent signed. per deepika, " covid rapid done today with a negative result". denies any pain or discomfort at the moment. reiterated to call and ask for assistance. call light and light button within easy reach. bed locked and in lowest position. will continue plan of care.
--- NOTE | 2020-05-05 19:20 | NUR ---
NURSE HAND-OFF: Important Events on Shift:N/A Patient Status: Stable Diet: CCHO M Pending Orders: N.A Pending Results/Labs:N.A Pending MD notification:N.A Latest Vital Signs: Temperature 97.9 , Pulse 67 , B/P 139 /69 , Respiratory Rate 20 , O2 SAT 96 , Room Air, O2 Flow Rate . Vital Sign Comment: Latest Kulkarni Fall Score: 45 Fall Risk: High Risk Safety Measures: Call light Within Reach, Bed Alarm Zone 1, Side Rails Side Rails x2, Bed position Low and Locked. Fall Precautions: Yellow Socks Yellow Gown Door Sign Patient Fall Education Report given to ARLET Colbert.
[2020-05-05 20:00] VITALS: BP 113/64
[2020-05-05] MEDS: Dyna-Hex 2% Top Sol 2oz TOPIC SCH (20:00)
[2020-05-05] MEDS: Atorvastatin 80mg tab ORAL SCH (20:20)
[2020-05-05] MEDS: Doxazosin 1mg Tab ORAL SCH (20:21)
[2020-05-06] VITALS: BP 109/58
--- NOTE | 2020-05-06 00:45 | Cardiology Progress Note ---
Subjective DATE OF SERVICE: May 05, 2020 Still with cough and congestion, but decreasing. Notes chest pain with cough Rising BNP noted BP parameters stable O2 sats improved on room air Objective Last 24 Hour Vital Signs Date Time Temp Pulse Resp B/P (MAP) Pulse Ox O2 Delivery O2 Flow Rate FiO2 05/06/20 00:00 98.4 65 20 109/58 (75) 97 05/05/20 21:00 Room Air 05/05/20 20:50 98.2 05/05/20 20:00 98.2 64 20 113/64 (80) 96 05/05/20 17:12 67 139/69 05/05/20 16:00 97.9 67 20 139/69 (92) 96 05/05/20 12:00 97.7 70 20 121/54 (76) 95 05/05/20 09:00 67 114/59 05/05/20 09:00 67 114/59 05/05/20 09:00 Room Air 05/05/20 08:00 97.7 67 20 114/59 (77) 95 05/05/20 05:19 98.5 05/05/20 04:00 97.8 62 18 136/69 (91) 96 ROS: unchanged from my assessment of 05/02/20 HEENT: normal ENT inspection LUNGS: bilateral rhonchi CARDIAC: normal rate, regular rhythm, normal S1 and S2, gallop/S4 ABDOMEN: normal bowel sounds, non tender, soft, no organomegaly, other - healed surgical scar; left lower quadrant hernia Laboratory Tests Test 05/05/20 05:37 05/05/20 11:14 White Blood Count 5.5 K/UL (4.8-10.8) Red Blood Count 3.46 M/UL (4.20-5.40) L Hemoglobin 10.6 G/DL (12.0-16.0) L Hematocrit 31.9 % (37.0-47.0) L Mean Corpuscular Volume 92 FL (80-99) Mean Corpuscular Hemoglobin 30.6 PG (27.0-31.0) Mean Corpuscular Hemoglobin Concent 33.1 G/DL (32.0-36.0) Red Cell Distribution Width 13.4 % (11.6-14.8) Platelet Count 151 K/UL (150-450) Mean Platelet Volume 7.3 FL (6.5-10.1) Neutrophils (%) (Auto) 32.2 % (45.0-75.0) L Lymphocytes (%) (Auto) 50.8 % (20.0-45.0) H Monocytes (%) (Auto) 11.2 % (1.0-10.0) H Eosinophils (%) (Auto) 4.0 % (0.0-3.0) H Basophils (%) (Auto) 1.7 % (0.0-2.0) Sodium Level 138 MMOL/L (136-145) Potassium Level 5.1 MMOL/L (3.5-5.1) Chloride Level 105 MMOL/L (98-107) Carbon Dioxide Level 27 MMOL/L (21-32) Anion Gap 6 mmol/L (5-15) Blood Urea Nitrogen 40 mg/dL (7-18) H Creatinine 1.6 MG/DL (0.55-1.30) H Estimat Glomerular Filtration Rate 31.3 mL/min (>60) Glucose Level 121 MG/DL (74-106) H Calcium Level 8.7 MG/DL (8.5-10.1) Magnesium Level 1.9 MG/DL (1.8-2.4) Total Bilirubin 0.3 MG/DL (0.2-1.0) Aspartate Amino Transf (AST/SGOT) 17 U/L (15-37) Alanine Aminotransferase (ALT/SGPT) 17 U/L (12-78) Alkaline Phosphatase 109 U/L (46-116) Pro-B-Type Natriuretic Peptide 511 pg/mL (0-125) H Total Protein 5.8 G/DL (6.4-8.2) L Albumin 2.7 G/DL (3.4-5.0) L Globulin 3.1 g/dL Albumin/Globulin Ratio 0.9 (1.0-2.7) L POC Whole Blood Glucose 145 MG/DL (74-106) H Microbiology Date/Time Source Procedure Growth Status 05/05/20 14:00 Nasopharynx SARS-CoV-2 RdRp Gene Assay - Final Complete Assessment/Plan Assessment/Plan Community acquired pneumonia Hypoxia Hypertension/HHD Non-ischemic cardiomyopathy Non-sustained ventricular ectopy IRDM with neuropathy Hx enterocutaneous fistula Diverticular disease Degenerative disk disease Abnormal gait Acute/chronic kidney disease Ac/chronic diastolic CHF Abx respiratory rx insulin titration maintain BBlocker therapy IVF hydration -esau'd Repeat CXR Monitor renal parameters Eder Mariano MD May 06, 2020 00:45
[2020-05-06 04:00] VITALS: BP 136/70
[2020-05-06] MEDS: Promethazine/Codeine 5ml UD ORAL PRN ×4 (04:52→23:04)
[2020-05-06] MEDS: Tylenol #3 tab (300mg/30mg) ORAL PRN ×4 (04:52→22:54)
[2020-05-06] MEDS: NovoLOG Insulin Flexpen SUBQ SCH ×4 (05:44→20:14)
--- NOTE | 2020-05-06 06:21 | NUR ---
NURSE HAND-OFF: Important Events on Shift: O2 MONITORING; PAIN AND COUGH MNGT; BLOOD GLUCOSE MONITORING Patient Status: STABLE Diet: CCHO MEDIUM Pending Orders: PICC LINE INSERTION Pending Results/Labs: Pending MD notification: Latest Vital Signs: Temperature 98.4 , Pulse 68 , B/P 136 /70 , Respiratory Rate 20 , O2 SAT 96 , Room Air, O2 Flow Rate . Vital Sign Comment: Latest Kulkarni Fall Score: 45 Fall Risk: High Risk Safety Measures: Call light Within Reach, Bed Alarm Zone 1, Side Rails Side Rails x2, Bed position Low and Locked. Fall Precautions: Yellow Socks Yellow Gown Door Sign Patient Fall Education Addendum: 05/06/20 at 0627 by Daija Ratliff RN FOR CHEST XRAY 2 VIEW DUE TO INFECTION
--- NOTE | 2020-05-06 07:23 | General Progress Note ---
Subjective ROS Limited/Unobtainable: No Constitutional: Reports: malaise, weakness HEENT: Reports: no symptoms Cardiovascular: Reports: chest pain Respiratory: Reports: cough, shortness of breath Gastrointestinal/Abdominal: Reports: no symptoms Genitourinary: Reports: no symptoms Neurologic/Psychiatric: Reports: no symptoms Endocrine: Reports: no symptoms Hematologic/Lymphatic: Reports: no symptoms Allergies: Coded Allergies: CIPROFLOXACIN (Verified Allergy, Unknown, RASH, 01/17/11) IODINE (Verified Allergy, Unknown, 09/20/10) IV DYE, IODINE CONTAINING (Verified Allergy, Unknown, SHOCK, 01/17/11) PENICILLINS (Verified Allergy, Unknown, 09/20/10) SULFA (SULFONAMIDE ANTIBIOTICS) (Verified Allergy, Unknown, RASH, 01/17/11) All Systems: reviewed and negative except above Subjective no new complaints. c/o CP- associated with cough. decreased cough and congestion. no fever or chills. Covid neg. labs noted. Objective Last 24 Hour Vital Signs Date Time Temp Pulse Resp B/P (MAP) Pulse Ox O2 Delivery O2 Flow Rate FiO2 05/06/20 05:22 98.4 05/06/20 04:00 99.0 68 20 136/70 (92) 96 05/06/20 00:00 98.4 65 20 109/58 (75) 97 05/05/20 21:00 Room Air 05/05/20 20:50 98.2 05/05/20 20:00 98.2 64 20 113/64 (80) 96 05/05/20 17:12 67 139/69 05/05/20 16:00 97.9 67 20 139/69 (92) 96 05/05/20 12:00 97.7 70 20 121/54 (76) 95 05/05/20 09:00 67 114/59 05/05/20 09:00 67 114/59 05/05/20 09:00 Room Air 05/05/20 08:00 97.7 67 20 114/59 (77) 95 Intake and Output 05/05/20 05/06/20 19:00 07:00 Intake Total 500 ml Balance 500 ml Intake Oral 500 ml # Voids 3 2 # Bowel Movements 1 Laboratory Tests 05/05/20 11:14: POC Whole Blood Glucose 145H Height (Feet): 4 Height (Inches): 10.00 Weight (Pounds): 149 Objective General Appearance: WD/WN, alert Neck: normal alignment, supple Cardiovascular: normal rate Respiratory/Chest: chest wall non-tender, lungs clear, normal breath sounds, no respiratory distress, no accessory muscle use Abdomen: normal bowel sounds, non tender, soft, no organomegaly, no mass Edema: no edema noted Arm (L), no edema noted Arm (R) Neurologic: 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
--- NOTE | 2020-05-06 07:25 | NUR ---
HAND-OFF: Report given to torie deras.
--- NOTE | 2020-05-06 07:36 | NUR ---
NURSE NOTES: Report received from ARLET Colbert. Patient awake in bed, alert and oriented x 4, no SOB, bed in lowest position with breaks engaged and alarm on, no IV line MD aware, for PICC line placement today, denies any pain or discomfort at this time, on 02 via NC at 2 lpm, will continue to monitor and proceed with plan of care, call light within reach.
[2020-05-06 08:00] VITALS: BP 110/60
--- NOTE | 2020-05-06 08:36 | NUR ---
RADIOLOGY DEPT., CHEST X-RAY DONE.-P.DYE
[2020-05-06] MEDS: Heparin 5000 units/ml inj SUBQ SCH ×2 (09:00→20:15)
[2020-05-06] MEDS: Donepezil 5mg Tab ORAL SCH (09:03)
[2020-05-06] MEDS: Metoprolol Succinate XL 50mg tab ORAL SCH (09:03)
[2020-05-06] MEDS: Aspirin EC 81mg tab ORAL SCH (09:04)
[2020-05-06] MEDS: Levemir Flexpen SUBQ SCH ×2 (09:06→17:29)
[2020-05-06 09:19] LABS: CALCIUM 8.7 MG/DL (8.5-10.1); CREATININE 1.4 MG/DL (0.55-1.30)
--- NOTE | 2020-05-06 11:04 | NUR ---
PT NOTE Received MD order for PT evaluation. Attempted to see patient for PT however patient declining to participate, c/o not feeling well, states she didn't sleep well last night. Patient requesting that therapist return tomorrow. Breanne INCE notified, will follow up tomorrow.
--- NOTE | 2020-05-06 11:14 | Infectious Diseases Prog Note ---
Assessment/Plan Assessment/Plan antibiotics : ceftriaxone A 1. pneumonia improving COVID 19 negative 2. diabetes mellitus 3. hypertension 4. asthma 5. COPD P 1. continue ceftriaxone in hospital 2. po doxycycline on discharge 5 more days 3. will follow up cultures Subjective Constitutional: Denies: fever, chills Respiratory: Reports: shortness of breath - decreased, dry cough Gastrointestinal/Abdominal: Reports: nausea; Denies: vomiting, diarrhea Musculoskeletal: Reports: pain Allergies: Coded Allergies: CIPROFLOXACIN (Verified Allergy, Unknown, RASH, 01/17/11) IODINE (Verified Allergy, Unknown, 09/20/10) IV DYE, IODINE CONTAINING (Verified Allergy, Unknown, SHOCK, 01/17/11) PENICILLINS (Verified Allergy, Unknown, 09/20/10) SULFA (SULFONAMIDE ANTIBIOTICS) (Verified Allergy, Unknown, RASH, 01/17/11) Objective Last 24 Hour Vital Signs Date Time Temp Pulse Resp B/P (MAP) Pulse Ox O2 Delivery O2 Flow Rate FiO2 05/06/20 09:33 98.7 05/06/20 09:04 66 110/60 05/06/20 09:03 66 110/60 05/06/20 09:00 Room Air 05/06/20 08:00 98.7 66 20 110/60 (77) 96 05/06/20 05:22 98.4 05/06/20 04:00 99.0 68 20 136/70 (92) 96 05/06/20 00:00 98.4 65 20 109/58 (75) 97 05/05/20 21:00 Room Air 05/05/20 20:50 98.2 05/05/20 20:00 98.2 64 20 113/64 (80) 96 05/05/20 17:12 67 139/69 05/05/20 16:00 97.9 67 20 139/69 (92) 96 05/05/20 12:00 97.7 70 20 121/54 (76) 95 Height (Feet): 4 Height (Inches): 10.00 Weight (Pounds): 149 Respiratory/Chest: lungs clear Cardiovascular: normal rate, regular rhythm, no gallop/murmur Abdomen: soft, non tender Extremities: other - + edema Microbiology Date/Time Source Procedure Growth Status 05/05/20 14:00 Nasopharynx SARS-CoV-2 RdRp Gene Assay - Final Complete Laboratory Tests Test 05/05/20 11:14 05/06/20 08:45 POC Whole Blood Glucose 145 MG/DL (74-106) H Sodium Level 137 MMOL/L (136-145) Potassium Level 5.0 MMOL/L (3.5-5.1) Chloride Level 104 MMOL/L (98-107) Carbon Dioxide Level 30 MMOL/L (21-32) Anion Gap 3 mmol/L (5-15) L Blood Urea Nitrogen 36 mg/dL (7-18) H Creatinine 1.4 MG/DL (0.55-1.30) H Estimat Glomerular Filtration Rate 36.6 mL/min (>60) Glucose Level 213 MG/DL (74-106) H Calcium Level 8.7 MG/DL (8.5-10.1) Current Medications Medications (Trade) Dose Ordered Sig/Adin Route PRN Reason Start Time Stop Time Status Last Admin Dose Admin Acetaminophen/ Codeine Phosphate (Tylenol #3) 1 tab EVERY 4 HOURS PRN ORAL For Pain 05/03/20 16:00 05/09/20 14:44 05/06/20 09:03 Amlodipine Besylate (Norvasc) 5 mg BID ORAL 05/02/20 18:00 06/01/20 17:59 05/06/20 09:04 Aspirin (Ecotrin) 81 mg DAILY ORAL 05/03/20 09:00 06/17/20 08:59 05/06/20 09:04 Atorvastatin Calcium (Lipitor) 80 mg BEDTIME ORAL 05/02/20 21:00 07/31/20 20:59 05/05/20 20:20 Ceftriaxone Sodium 1 gm/ Dextrose 55 ml @ 110 mls/hr Q24H IVPB 05/02/20 19:00 05/09/20 18:59 05/03/20 18:03 Chlorhexidine Gluconate (Janessa-Hex 2%) 1 applic DAILY@2000 TOPIC 05/04/20 20:00 08/02/20 19:59 Clonidine HCl (Catapres Tab) 0.1 mg Q4H PRN ORAL For High Blood Pressure 05/02/20 14:45 07/31/20 14:44 Dextrose (Dextrose 50%) 25 ml Q30M PRN IV Hypoglycemia 05/02/20 14:45 07/31/20 14:44 Dextrose (Dextrose 50%) 50 ml Q30M PRN IV Hypoglycemia 05/02/20 14:45 07/31/20 14:44 Donepezil HCl (Aricept) 5 mg DAILY ORAL 05/03/20 09:00 06/02/20 08:59 05/06/20 09:03 Doxazosin Mesylate (Cardura) 2 mg QHS ORAL 05/02/20 21:00 06/01/20 20:59 05/05/20 20:21 Duloxetine HCl (Cymbalta) 40 mg DAILY ORAL 05/03/20 09:00 08/01/20 08:59 05/06/20 09:03 Heparin Sodium (Porcine) (Heparin 5000 units/ml) 5,000 units EVERY 12 HOURS SUBQ 05/02/20 21:00 06/16/20 20:59 05/05/20 09:22 Heparin Sodium/ Sodium Chloride (Heparin 1000 units/500ml Premix) 1,000 unit ONCE PRN IV picc line placement 05/04/20 15:45 05/06/20 15:44 Insulin Aspart (NovoLOG) BEFORE MEALS AND HS SUBQ 05/02/20 16:30 07/31/20 16:29 05/05/20 20:19 Insulin Detemir (Levemir) 8 units BID SUBQ 05/02/20 18:00 07/31/20 17:59 05/06/20 09:06 Lansoprazole (Prevacid) 30 mg DAILY ORAL 05/03/20 09:00 06/02/20 08:59 05/06/20 09:03 Lidocaine HCl (Xylocaine 1% 30ml) 30 ml ONCE PRN INJ picc line placement 05/04/20 15:45 05/06/20 15:44 Metoprolol Succinate (Toprol XL) 50 mg DAILY ORAL 05/03/20 09:00 08/01/20 08:59 05/06/20 09:03 Ondansetron HCl (Zofran) 4 mg Q6H PRN IVP Nausea & Vomiting 05/02/20 14:45 06/01/20 14:44 05/04/20 10:25 Promethazine HCl/ Codeine (Phenergan with Codeine) 5 ml Q4H PRN ORAL For Cough 05/02/20 14:45 06/01/20 14:44 05/06/20 04:52 Sodium Chloride 1,000 ml @ 50 mls/hr Q20H IV 05/04/20 03:15 06/03/20 03:14 05/04/20 04:25 Monica Jaeger MD May 06, 2020 11:14
[2020-05-06 12:00] VITALS: BP 125/64
--- NOTE | 2020-05-06 12:54 | NUR ---
NURSE NOTES: Patient left for PICC placement at around 1245 in stable condition.
--- NOTE | 2020-05-06 13:33 | Diagnostic Imaging Report ---
Indication: Shortness of breath Technique: One view of the chest Comparison: 05/03/2020 Findings: Linear band in the left midlung is stable, probably represents an area of scarring. The heart is upper limits normal in size. The remainder the lungs and pleural spaces are clear. Impression: No definite acute process or significant interim change
--- NOTE | 2020-05-06 14:05 | Brief Operative Note ---
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
--- NOTE | 2020-05-06 14:11 | NUR ---
RADIOLOGY NOTE: RIGHT UPPER EXTREMITY PICC LINE PLACEMENT AT [address] YENI HARRIS. FA
--- NOTE | 2020-05-06 14:22 | NUR ---
CASE MANAGEMENT:REVIEW 05/06/20 SI: PNEUMONIA ASTHMA. COPD 98.4 69 20 125/64 97% ON RA BUN+36 CR+1.4 IS: IVF@50/HR TOPROL XL PO QD CYMBALTA PO QD ASA PO QD CARDURA PO QHS NORVASC PO BID : MED/SURG STATUS 4 EAST DCP; FROM HOME PLAN: PICC LINE PLACED PT EVAL
--- NOTE | 2020-05-06 14:29 | Diagnostic Imaging Report ---
Indications: Needs long-term IV access Technique: Ultrasound confirms patent compressible right basilic vein. Total sterile technique, including sterile probe cover and sterile gel, hat, mask, sterile gown, large sterile drape, and preparation with 2% chlorhexidine utilized. Local anesthesia with 1% lidocaine. Under real-time ultrasound guidance, puncture basilic vein using 21-gauge needle, documented and archived, passage 0.018 guidewire under direct fluoroscopy, which was used to determine appropriate catheter length, exchange for 4 Spanish peel-away sheath. 4 Spanish Bard dual-lumen power PICC cut to 40 cm. It was inserted through the peel-away sheath. Peel-away sheath and guidewire removed. Catheter fixed to the skin. Both catheter ports aspirated and flushed. Patient tolerated procedure well, without immediate complication. Digital radiograph documents satisfactory catheter tip position, at the cavoatrial junction. Note that initial attempt was made at accessing the left upper extremity. However, the guidewire would not pass beyond the subclavian vein. Total fluoroscopy time 123 seconds. Total dose area product 0.26036 mGym2 Total number of images: 1 Impression: Successful placement of right arm PICC under sonographic and fluoroscopic guidance, as described above. Note unsuccessful attempt at accessing view of the left arm; inability to pass guidewire be on the left subclavian vein suggests central venoocclusive disease
--- NOTE | 2020-05-06 14:40 | NUR ---
NURSE NOTES: Patient came back from PICC line insertion in stable condition, new PICC line present on ROSALBA, intact with slight bleeding around dressing, per Anthony long, blood was from earlier and pt is not actively bleeding and that dressing should not be touched until later tonight to prevent bleeding. Biopatch and tegaderm dressing in place, no active bleeding noted, patient denies having pain on site but stated its just a little sore and that she is okay at the moment. Will continue to monitor. PICC line okay to use now as per Dr. Schroeder.
[2020-05-06 16:00] VITALS: BP 116/59
[2020-05-06] MEDS: cefTRIAXone 1 GM in D5W 55 ML IVPB SCH (18:39)
--- NOTE | 2020-05-06 19:17 | NUR ---
NURSE HAND-OFF: Important Events on Shift:[new PICC line on ROSALBA double lumen, pain management, fall and safety precautions] Patient Status: [stable] Diet: [CCHO medium] Pending Orders: [] Pending Results/Labs:[] Pending MD notification:[] Latest Vital Signs: Temperature 98.3 , Pulse 67 , B/P 116 /59 , Respiratory Rate 20 , O2 SAT 96 , Room Air, O2 Flow Rate . Vital Sign Comment: [] Latest Kulkarni Fall Score: 45 Fall Risk: High Risk Safety Measures: Call light Within Reach, Bed Alarm Zone 1, Side Rails Side Rails x2, Bed position Low and Locked. Fall Precautions: Yellow Socks Yellow Gown Door Sign Patient Fall Education Report given to [ARLET Colbert].
--- NOTE | 2020-05-06 19:36 | NUR ---
NURSE NOTES: Received report from torie deras. patient is on bed, awake and verbally responsive. on nc @ 2lpm. no sob. per augusta, s/p placement on the right upper arm running 1/2 ns @ 75 ml/hr . initially they tried to insert on the left arm, unsuccessful.: there is an intact dry dressing on the left upper arm. picc line dressing on the right upper arm is soaked with blood per augusta that the tech told him that the dressing needs to be changed tonight". patient complaints of discomfort on both upper arm due to placement. augusta gave tylenol #3. reiterated to call and ask for assistance. call light and light button within easy reach. bed locked and in lowest position. will continue plan of care
[2020-05-06 20:00] VITALS: BP 121/57
[2020-05-06] MEDS: Doxazosin 1mg Tab ORAL SCH (20:15)
[2020-05-06] MEDS: Atorvastatin 80mg tab ORAL SCH (20:15)
[2020-05-06] MEDS: Dyna-Hex 2% Top Sol 2oz TOPIC SCH (20:15)
--- NOTE | 2020-05-06 22:00 | NUR ---
NURSE NOTES: s/p picc line placement. picc line dressing is moderately soaked with blood. changed the dressing per protocol. flushes well and with good blood return. patient tolerated the procedure.
[2020-05-07] VITALS: BP 131/71
--- NOTE | 2020-05-07 02:19 | Cardiology Progress Note ---
Subjective DATE OF SERVICE: May 06, 2020 Slight decrease in cough and congestion. Notes chest pain with cough Rising BNP noted BP parameters stable O2 sats 96% on room air CXR (05/06) No interval change from admit. Objective Last 24 Hour Vital Signs Date Time Temp Pulse Resp B/P (MAP) Pulse Ox O2 Delivery O2 Flow Rate FiO2 05/07/20 00:00 98.1 65 20 131/71 (91) 96 05/06/20 23:24 98.1 05/06/20 21:00 Room Air 05/06/20 20:00 98.1 68 20 121/57 (78) 97 05/06/20 19:09 98.3 05/06/20 17:29 67 116/59 05/06/20 16:00 98.3 67 20 116/59 (78) 96 05/06/20 12:00 98.4 69 20 125/64 (84) 97 05/06/20 09:33 98.7 05/06/20 09:04 66 110/60 05/06/20 09:03 66 110/60 05/06/20 09:00 Room Air 05/06/20 08:00 98.7 66 20 110/60 (77) 96 05/06/20 05:22 98.4 05/06/20 04:00 99.0 68 20 136/70 (92) 96 ROS: unchanged from my assessment of 05/02/20 HEENT: normal ENT inspection LUNGS: bilateral rhonchi CARDIAC: normal rate, regular rhythm, normal S1 and S2, gallop/S4 ABDOMEN: normal bowel sounds, non tender, soft, no organomegaly, other - healed surgical scar; left lower quadrant hernia Laboratory Tests Test 05/06/20 08:45 Sodium Level 137 MMOL/L (136-145) Potassium Level 5.0 MMOL/L (3.5-5.1) Chloride Level 104 MMOL/L (98-107) Carbon Dioxide Level 30 MMOL/L (21-32) Anion Gap 3 mmol/L (5-15) L Blood Urea Nitrogen 36 mg/dL (7-18) H Creatinine 1.4 MG/DL (0.55-1.30) H Estimat Glomerular Filtration Rate 36.6 mL/min (>60) Glucose Level 213 MG/DL (74-106) H Calcium Level 8.7 MG/DL (8.5-10.1) Microbiology Date/Time Source Procedure Growth Status 05/05/20 14:00 Nasopharynx SARS-CoV-2 RdRp Gene Assay - Final Complete Assessment/Plan Assessment/Plan Community acquired pneumonia Hypoxia Hypertension/HHD Non-ischemic cardiomyopathy 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
[2020-05-07 04:00] VITALS: BP 127/67
[2020-05-07] MEDS: Promethazine/Codeine 5ml UD ORAL PRN ×3 (04:09→17:03)
[2020-05-07] MEDS: Tylenol #3 tab (300mg/30mg) ORAL PRN ×4 (04:10→20:34)
[2020-05-07] MEDS: NovoLOG Insulin Flexpen SUBQ SCH ×4 (05:53→20:34)
--- NOTE | 2020-05-07 06:41 | NUR ---
NURSE HAND-OFF: Important Events on Shift: picc line dressing changed, blood glucose monitoring; pain mngt Patient Status:stable Diet: ccho medium Pending Orders: [] Pending Results/Labs:[] Pending MD notification:[] Latest Vital Signs: Temperature 97.3 , Pulse 63 , B/P 127 /67 , Respiratory Rate 20 , O2 SAT 95 , Room Air, O2 Flow Rate . Vital Sign Comment: [] Latest Kulkarni Fall Score: 45 Fall Risk: High Risk Safety Measures: Call light Within Reach, Bed Alarm Zone 1, Side Rails Side Rails x2, Bed position Low and Locked. Fall Precautions: Yellow Socks Yellow Gown Door Sign Patient Fall Education
--- NOTE | 2020-05-07 07:28 | NUR ---
HAND-OFF: Report given to torie deras.
--- NOTE | 2020-05-07 07:32 | NUR ---
NURSE NOTES: Report received from ARLET Colbert. Patient awake in bed, alert and oriented x 4, no SOB, bed in lowest position with breaks engaged and alarm on, PICC line present on ROSALBA, dressing intact and clean, denies any pain or discomfort at this time, on 02 via NC at 2 lpm, will continue to monitor and proceed with plan of care, call light within reach
[2020-05-07 08:00] VITALS: BP 137/68
[2020-05-07] MEDS: Donepezil 5mg Tab ORAL SCH (08:43)
[2020-05-07] MEDS: Aspirin EC 81mg tab ORAL SCH (08:43)
[2020-05-07] MEDS: Metoprolol Succinate XL 50mg tab ORAL SCH (08:43)
[2020-05-07] MEDS: Levemir Flexpen SUBQ SCH ×2 (08:45→17:05)
[2020-05-07] MEDS: Heparin 5000 units/ml inj SUBQ SCH ×2 (08:47→20:34)
--- NOTE | 2020-05-07 09:40 | NUR ---
PT EVALUATION NOTE: Patient seen for initial evaluation and treatment initiated. Patient presents with generalized weakness and LBP which impairs patient's ability to perform mobility tasks safely. Patient able to come to sitting at the EOB with supervision and to complete transfers with SBA and FWW. Patient able to ambulate 125 ft with SBA and a FWW, slowed pace and one standing rest due to LBP. Patient will benefit from skilled inpatient PT intervention to increase strength and postural stability for improved level of functional mobility and safety. Anticipate discharge home once medically cleared by MD. Patient has a FWW for ambulation. Addendum: 05/07/20 at 1243 by VLAD LIZ PT Amended: Links added.
--- NOTE | 2020-05-07 11:30 | Infectious Diseases Prog Note ---
Assessment/Plan Assessment/Plan IMPRESSION: 1. Pneumonia. 2. Asthma. 3. COPD. 4. Diabetes mellitus with hyperglycemia. 5. Hypertension. 6. Osteoarthritis. 7. Multiple antibiotic allergies including Cipro, penicillin, and sulfa drugs. RECOMMENDATION: We will continue with ceftriaxone. PO doxycycline on discharge 5 more days We will follow up cultures. Subjective ROS Limited/Unobtainable: No Constitutional: Reports: no symptoms Respiratory: Reports: no symptoms Gastrointestinal/Abdominal: Reports: no symptoms Genitourinary: Reports: no symptoms Allergies: Coded Allergies: CIPROFLOXACIN (Verified Allergy, Unknown, RASH, 01/17/11) IODINE (Verified Allergy, Unknown, 09/20/10) IV DYE, IODINE CONTAINING (Verified Allergy, Unknown, SHOCK, 01/17/11) PENICILLINS (Verified Allergy, Unknown, 09/20/10) SULFA (SULFONAMIDE ANTIBIOTICS) (Verified Allergy, Unknown, RASH, 01/17/11) Objective Last 24 Hour Vital Signs Date Time Temp Pulse Resp B/P (MAP) Pulse Ox O2 Delivery O2 Flow Rate FiO2 05/07/20 09:14 97.7 05/07/20 09:00 Room Air 05/07/20 08:43 77 137/68 05/07/20 08:43 77 137/68 05/07/20 08:00 97.7 77 20 137/68 (91) 94 05/07/20 04:40 97.3 05/07/20 04:00 97.3 63 20 127/67 (87) 95 05/07/20 00:00 98.1 65 20 131/71 (91) 96 05/06/20 23:24 98.1 05/06/20 21:00 Room Air 05/06/20 20:00 98.1 68 20 121/57 (78) 97 05/06/20 19:09 98.3 05/06/20 17:29 67 116/59 05/06/20 16:00 98.3 67 20 116/59 (78) 96 05/06/20 12:00 98.4 69 20 125/64 (84) 97 Height (Feet): 4 Height (Inches): 10.00 Weight (Pounds): 149 General Appearance: no acute distress HEENT: mucous membranes moist Respiratory/Chest: lungs clear Cardiovascular: normal rate, other - R arm PICC line Abdomen: soft, non tender Extremities: no edema Neurologic/Psychiatric: alert, oriented x 3, responsive Microbiology Date/Time Source Procedure Growth Status 05/05/20 14:00 Nasopharynx SARS-CoV-2 RdRp Gene Assay - Final Complete Current Medications Medications (Trade) Dose Ordered Sig/Adin Route PRN Reason Start Time Stop Time Status Last Admin Dose Admin Acetaminophen/ Codeine Phosphate (Tylenol #3) 1 tab EVERY 4 HOURS PRN ORAL For Pain 05/03/20 16:00 05/09/20 14:44 05/07/20 08:43 Amlodipine Besylate (Norvasc) 5 mg BID ORAL 05/02/20 18:00 06/01/20 17:59 05/07/20 08:43 Aspirin (Ecotrin) 81 mg DAILY ORAL 05/03/20 09:00 06/17/20 08:59 05/07/20 08:43 Atorvastatin Calcium (Lipitor) 80 mg BEDTIME ORAL 05/02/20 21:00 07/31/20 20:59 05/06/20 20:15 Ceftriaxone Sodium 1 gm/ Dextrose 55 ml @ 110 mls/hr Q24H IVPB 05/02/20 19:00 05/09/20 18:59 05/06/20 18:39 Chlorhexidine Gluconate (Janessa-Hex 2%) 1 applic DAILY@2000 TOPIC 05/04/20 20:00 08/02/20 19:59 05/06/20 20:15 Clonidine HCl (Catapres Tab) 0.1 mg Q4H PRN ORAL For High Blood Pressure 05/02/20 14:45 07/31/20 14:44 Dextrose (Dextrose 50%) 25 ml Q30M PRN IV Hypoglycemia 05/02/20 14:45 07/31/20 14:44 Dextrose (Dextrose 50%) 50 ml Q30M PRN IV Hypoglycemia 05/02/20 14:45 07/31/20 14:44 Donepezil HCl (Aricept) 5 mg DAILY ORAL 05/03/20 09:00 06/02/20 08:59 05/07/20 08:43 Doxazosin Mesylate (Cardura) 2 mg QHS ORAL 05/02/20 21:00 06/01/20 20:59 05/06/20 20:15 Duloxetine HCl (Cymbalta) 40 mg DAILY ORAL 05/03/20 09:00 08/01/20 08:59 05/07/20 08:43 Heparin Sodium (Porcine) (Heparin 5000 units/ml) 5,000 units EVERY 12 HOURS SUBQ 05/02/20 21:00 06/16/20 20:59 05/07/20 08:47 Insulin Aspart (NovoLOG) BEFORE MEALS AND HS SUBQ 05/02/20 16:30 07/31/20 16:29 05/07/20 05:53 Insulin Detemir (Levemir) 8 units BID SUBQ 05/02/20 18:00 07/31/20 17:59 05/07/20 08:45 Lansoprazole (Prevacid) 30 mg DAILY ORAL 05/03/20 09:00 06/02/20 08:59 05/07/20 08:43 Metoprolol Succinate (Toprol XL) 50 mg DAILY ORAL 05/03/20 09:00 08/01/20 08:59 05/07/20 08:43 Ondansetron HCl (Zofran) 4 mg Q6H PRN IVP Nausea & Vomiting 05/02/20 14:45 06/01/20 14:44 05/04/20 10:25 Promethazine HCl/ Codeine (Phenergan with Codeine) 5 ml Q4H PRN ORAL For Cough 05/02/20 14:45 06/01/20 14:44 05/07/20 08:42 Sodium Chloride 1,000 ml @ 50 mls/hr Q20H IV 05/04/20 03:15 06/03/20 03:14 05/04/20 04:25 Mauri Marroquin MD May 07, 2020 11:30
[2020-05-07 12:00] VITALS: BP 131/87
[2020-05-07 16:00] VITALS: BP 126/81
[2020-05-07] MEDS: cefTRIAXone 1 GM in D5W 55 ML IVPB SCH (18:28)
--- NOTE | 2020-05-07 19:20 | NUR ---
NURSE HAND-OFF: Important Events on Shift:[Physical therapy, pain management, fall and safety precautions, IV ATB and fluids] Patient Status: [stable] Diet: [CCHO medium] Pending Orders: [] Pending Results/Labs:[] Pending MD notification:[] Latest Vital Signs: Temperature 98.4 , Pulse 76 , B/P 126 /81 , Respiratory Rate 19 , O2 SAT 98 , Room Air, O2 Flow Rate . Vital Sign Comment: [] Latest Kulkarni Fall Score: 45 Fall Risk: High Risk Safety Measures: Call light Within Reach, Bed Alarm Zone 1, Side Rails Side Rails x2, Bed position Low and Locked. Fall Precautions: Yellow Socks Yellow Gown Door Sign Patient Fall Education Report given to [ARLET Lozada].
--- NOTE | 2020-05-07 19:21 | NUR ---
NURSE NOTES: Patient in bed, awake and alert x4. On room air with no SOB. PICC line noted on ROSALBA, patent and running IVF as ordered; dressing intact and clean. Bed locked and in lowest position. Call light in reach. Bed alarm on. Walker at bedside. Reminded to call for assist when getting out of bed. Will continue plan of care.
[2020-05-07 20:00] VITALS: BP 129/74
--- NOTE | 2020-05-07 20:33 | General Progress Note ---
Subjective ROS Limited/Unobtainable: No Constitutional: Reports: malaise, weakness HEENT: Reports: no symptoms Cardiovascular: Reports: no symptoms Respiratory: Reports: cough, shortness of breath Gastrointestinal/Abdominal: Reports: no symptoms Genitourinary: Reports: no symptoms Neurologic/Psychiatric: Reports: no symptoms Endocrine: Reports: no symptoms Hematologic/Lymphatic: Reports: no symptoms Allergies: Coded Allergies: CIPROFLOXACIN (Verified Allergy, Unknown, RASH, 01/17/11) IODINE (Verified Allergy, Unknown, 09/20/10) IV DYE, IODINE CONTAINING (Verified Allergy, Unknown, SHOCK, 01/17/11) PENICILLINS (Verified Allergy, Unknown, 09/20/10) SULFA (SULFONAMIDE ANTIBIOTICS) (Verified Allergy, Unknown, RASH, 01/17/11) All Systems: reviewed and negative except above Subjective no new complaints. c/o CP- associated with cough. decreased cough and congestion. no fever or chills. Covid neg. labs noted. cxr now clear Objective Last 24 Hour Vital Signs Date Time Temp Pulse Resp B/P (MAP) Pulse Ox O2 Delivery O2 Flow Rate FiO2 05/07/20 17:03 76 126/81 05/07/20 16:00 98.4 76 19 126/81 (96) 98 05/07/20 15:16 98.2 05/07/20 12:00 98.2 66 20 131/87 (102) 96 05/07/20 09:14 97.7 05/07/20 09:00 Room Air 05/07/20 08:43 77 137/68 05/07/20 08:43 77 137/68 05/07/20 08:00 97.7 77 20 137/68 (91) 94 05/07/20 04:40 97.3 05/07/20 04:00 97.3 63 20 127/67 (87) 95 05/07/20 00:00 98.1 65 20 131/71 (91) 96 05/06/20 23:24 98.1 05/06/20 21:00 Room Air Intake and Output 05/06/20 05/07/20 19:00 07:00 Intake Total 420 ml 250 ml Balance 420 ml 250 ml Intake Oral 420 ml 250 ml # Voids 3 2 Height (Feet): 4 Height (Inches): 10.00 Weight (Pounds): 149 Objective General Appearance: WD/WN, alert Neck: normal alignment, supple Cardiovascular: normal rate Respiratory/Chest: chest wall non-tender, lungs clear, normal breath sounds, no respiratory distress, no accessory muscle use Abdomen: normal bowel sounds, non tender, soft, no organomegaly, no mass Edema: no edema noted Arm (L), no edema noted Arm (R) Neurologic: electrical logger II-XII grossly normal, alert, oriented x 3, responsive Lymphatic: normal anterior cervical (L), normal anterior cervical (R) Assessment/Plan Problem List: (1) Sepsis ICD Codes: A41.9 - Sepsis, unspecified organism SNOMED: 58071198 (2) PNA (pneumonia) ICD Codes: J18.9 - Pneumonia, unspecified organism SNOMED: 727944789 (3) hypertension Status: stable, progressing Assessment/Plan: iv abx resp care bp rx pt/ot o2 resp rx skin care antiplt monitor renal fxn encourage fluids/po dc planningn Brian Fernandez MD May 07, 2020 20:33
[2020-05-07] MEDS: Doxazosin 1mg Tab ORAL SCH (20:34)
[2020-05-07] MEDS: Atorvastatin 80mg tab ORAL SCH (20:34)
[2020-05-07] MEDS: Dyna-Hex 2% Top Sol 2oz TOPIC SCH (20:34)
[2020-05-08] VITALS: BP 136/66
--- NOTE | 2020-05-08 01:53 | Cardiology Progress Note ---
Subjective DATE OF SERVICE: May 07, 2020 Decreasing cough and congestion. Notes chest pain with coughing Rising BNP noted BP parameters stable O2 sats 96% on room air CXR (05/06) No interval change from admit Objective Last 24 Hour Vital Signs Date Time Temp Pulse Resp B/P (MAP) Pulse Ox O2 Delivery O2 Flow Rate FiO2 05/08/20 00:00 97.9 66 18 136/66 (89) 94 05/07/20 21:00 Room Air 05/07/20 20:00 97.8 64 18 129/74 (92) 94 05/07/20 17:03 76 126/81 05/07/20 16:00 98.4 76 19 126/81 (96) 98 05/07/20 15:16 98.2 05/07/20 12:00 98.2 66 20 131/87 (102) 96 05/07/20 09:14 97.7 05/07/20 09:00 Room Air 05/07/20 08:43 77 137/68 05/07/20 08:43 77 137/68 05/07/20 08:00 97.7 77 20 137/68 (91) 94 05/07/20 04:40 97.3 05/07/20 04:00 97.3 63 20 127/67 (87) 95 ROS: unchanged from my assessment of 05/02/20 HEENT: normal ENT inspection LUNGS: bilateral rhonchi - few CARDIAC: normal rate, regular rhythm, normal S1 and S2, gallop/S4 ABDOMEN: normal bowel sounds, non tender, soft, no organomegaly, other - healed surgical scar; left lower quadrant hernia Microbiology Date/Time Source Procedure Growth Status 05/05/20 14:00 Nasopharynx SARS-CoV-2 RdRp Gene Assay - Final Complete Assessment/Plan Assessment/Plan Community acquired pneumonia Hypoxia Hypertension/HHD Non-ischemic cardiomyopathy Non-sustained ventricular ectopy IRDM with neuropathy Hx enterocutaneous fistula Diverticular disease Degenerative disk disease Abnormal gait Acute/chronic kidney disease Ac/chronic diastolic CHF Abx - transition to oral therapy. respiratory rx insulin titration maintain BBlocker therapy Off IVF DC plan Eder Mariano MD May 08, 2020 01:53
[2020-05-08 04:00] VITALS: BP 139/67
[2020-05-08] MEDS: Tylenol #3 tab (300mg/30mg) ORAL PRN ×3 (05:06→15:36)
[2020-05-08] MEDS: NovoLOG Insulin Flexpen SUBQ SCH ×3 (05:58→17:09)
--- NOTE | 2020-05-08 06:18 | NUR ---
NURSE HAND-OFF: Important Events on Shift: No events Patient Status: Stable Diet: CCHO med Pending Orders: Case management for home health Pending Results/Labs: No labs this AM Pending MD notification: N/A Latest Vital Signs: Temperature 97.0 , Pulse 67 , B/P 139 /67 , Respiratory Rate 18 , O2 SAT 95 , Room Air, O2 Flow Rate . Vital Sign Comment: N/A Latest Kulkarni Fall Score: 45 Fall Risk: High Risk Safety Measures: Call light Within Reach, Bed Alarm Zone 1, Side Rails Side Rails x2, Bed position Low and Locked. Fall Precautions: Yellow Socks Yellow Gown Door Sign Patient Fall Education Addendum: 05/08/20 at 0721 by DIONTE DA SILVA RN Report given to ARLET Raymundo
--- NOTE | 2020-05-08 07:24 | NUR ---
NURSE NOTES: Report received from ARLET Lozada. Patient is awake in bed, alert and oriented x 4, no shortness of breath, bed in lowest position with breaks engaged and alarm on, PICC line present on ROSALBA, dressing intact and clean, denies any pain or discomfort at this time, on 02 via NC at 2 lpm, will continue to monitor and proceed with plan of care, call light within reach
[2020-05-08 08:00] VITALS: BP 138/90
[2020-05-08] MEDS: Aspirin EC 81mg tab ORAL SCH (09:10)
[2020-05-08] MEDS: Metoprolol Succinate XL 50mg tab ORAL SCH (09:10)
[2020-05-08] MEDS: Donepezil 5mg Tab ORAL SCH (09:10)
[2020-05-08] MEDS: Promethazine/Codeine 5ml UD ORAL PRN (09:11)
[2020-05-08] MEDS: Heparin 5000 units/ml inj SUBQ SCH (09:12)
[2020-05-08] MEDS: Levemir Flexpen SUBQ SCH ×2 (09:12→18:04)
--- NOTE | 2020-05-08 09:14 | NUR ---
RD ASSESSMENT & RECOMMENDATIONS SEE CARE ACTIVITY FOR COMPLETE ASSESSMENT DAILY ESTIMATED NEEDS: Needs based on DM, Cardiac/ 50.7kg abw 25-30 kcals/kg 5764-8112 total kcals 1-1.5 g protein/kg 50-75 g total protein 25-30 mL/kg 1076-1773 total fluid mLs NUTRITION DIAGNOSIS: * Altered nutrition related lab values R/T diabetes, h/o CHF as evidenced by elev BGs w/ POC glu (168 220 236 200 180), elev BNP (511). CURRENT DIET:CCHO MED PO DIET RECOMMENDATIONS: CCHO LOW + LOW NA ADDITIONAL RECOMMENDATIONS: * Daily standing wt as able * DC Ensure TID: Ensure not carb controlled, HPN unnecessary at this time given adequate meal intake and obese status
--- NOTE | 2020-05-08 10:15 | NUR ---
CASE MANAGEMENT:REVIEW 05/08/20 SI: PNEUMONIA. AC/CHR CHF 98.6 67 16 138/90 98% ON RA IS: DOXYCYCLINE PO Q12 IVF@50/HR TOPROL XL PO QD CYMBALTA PO QD ARICEPT PO QD ASA PO QD CARDURA PO QHS NORVASC PO BID DCP: FROM HOME PLAN: RETURN HOME WITH HOME HEALTH
--- NOTE | 2020-05-08 10:33 | NUR ---
*-*DISCHARGE PLANNING*-* PATIENT HAS BEEN REFERRED TO: [facility] P: [phone]
--- NOTE | 2020-05-08 10:47 | Infectious Diseases Prog Note ---
Assessment/Plan Assessment/Plan antibiotics : ceftriaxone A 1. pneumonia improving COVID 19 negative 2. diabetes mellitus 3. hypertension 4. asthma 5. COPD P 1. d/c ceftriaxone 2. start po doxycycline, continue 3 more days 3. will follow up cultures Subjective Constitutional: Denies: fever, chills Respiratory: Reports: shortness of breath - decreased, dry cough - decreased Gastrointestinal/Abdominal: Reports: nausea; Denies: vomiting, diarrhea Musculoskeletal: Reports: pain Allergies: Coded Allergies: CIPROFLOXACIN (Verified Allergy, Unknown, RASH, 01/17/11) IODINE (Verified Allergy, Unknown, 09/20/10) IV DYE, IODINE CONTAINING (Verified Allergy, Unknown, SHOCK, 01/17/11) PENICILLINS (Verified Allergy, Unknown, 09/20/10) SULFA (SULFONAMIDE ANTIBIOTICS) (Verified Allergy, Unknown, RASH, 01/17/11) Objective Last 24 Hour Vital Signs Date Time Temp Pulse Resp B/P (MAP) Pulse Ox O2 Delivery O2 Flow Rate FiO2 05/08/20 09:41 98.6 05/08/20 09:10 67 138/90 05/08/20 09:10 67 138/90 05/08/20 09:00 Room Air 05/08/20 08:00 98.6 67 16 138/90 (106) 98 05/08/20 04:00 97.0 67 18 139/67 (91) 95 05/08/20 00:00 97.9 66 18 136/66 (89) 94 05/07/20 21:00 Room Air 05/07/20 20:00 97.8 64 18 129/74 (92) 94 05/07/20 17:03 76 126/81 05/07/20 16:00 98.4 76 19 126/81 (96) 98 05/07/20 15:16 98.2 05/07/20 12:00 98.2 66 20 131/87 (102) 96 Height (Feet): 4 Height (Inches): 10.00 Weight (Pounds): 149 Respiratory/Chest: lungs clear Cardiovascular: normal rate, regular rhythm, no gallop/murmur Abdomen: soft, non tender Extremities: other - + edema, left arm PICC Microbiology Date/Time Source Procedure Growth Status 05/05/20 14:00 Nasopharynx SARS-CoV-2 RdRp Gene Assay - Final Complete Current Medications Medications (Trade) Dose Ordered Sig/Adin Route PRN Reason Start Time Stop Time Status Last Admin Dose Admin Acetaminophen/ Codeine Phosphate (Tylenol #3) 1 tab Q4H PRN ORAL pain 05/08/20 08:00 05/15/20 07:59 05/08/20 09:11 Amlodipine Besylate (Norvasc) 5 mg BID ORAL 05/02/20 18:00 06/01/20 17:59 05/08/20 09:10 Aspirin (Ecotrin) 81 mg DAILY ORAL 05/03/20 09:00 06/17/20 08:59 05/08/20 09:10 Atorvastatin Calcium (Lipitor) 80 mg BEDTIME ORAL 05/02/20 21:00 07/31/20 20:59 05/07/20 20:34 Ceftriaxone Sodium 1 gm/ Dextrose 55 ml @ 110 mls/hr Q24H IVPB 05/02/20 19:00 05/09/20 18:59 05/07/20 18:28 Chlorhexidine Gluconate (Janessa-Hex 2%) 1 applic DAILY@2000 TOPIC 05/04/20 20:00 08/02/20 19:59 05/07/20 20:34 Clonidine HCl (Catapres Tab) 0.1 mg Q4H PRN ORAL For High Blood Pressure 05/02/20 14:45 07/31/20 14:44 Dextrose (Dextrose 50%) 25 ml Q30M PRN IV Hypoglycemia 05/02/20 14:45 07/31/20 14:44 Dextrose (Dextrose 50%) 50 ml Q30M PRN IV Hypoglycemia 05/02/20 14:45 07/31/20 14:44 Donepezil HCl (Aricept) 5 mg DAILY ORAL 05/03/20 09:00 06/02/20 08:59 05/08/20 09:10 Doxazosin Mesylate (Cardura) 2 mg QHS ORAL 05/02/20 21:00 06/01/20 20:59 05/07/20 20:34 Duloxetine HCl (Cymbalta) 40 mg DAILY ORAL 05/03/20 09:00 08/01/20 08:59 05/08/20 09:10 Heparin Sodium (Porcine) (Heparin 5000 units/ml) 5,000 units EVERY 12 HOURS SUBQ 05/02/20 21:00 06/16/20 20:59 05/08/20 09:12 Insulin Aspart (NovoLOG) BEFORE MEALS AND HS SUBQ 05/02/20 16:30 07/31/20 16:29 05/08/20 05:58 Insulin Detemir (Levemir) 8 units BID SUBQ 05/02/20 18:00 07/31/20 17:59 05/08/20 09:12 Lansoprazole (Prevacid) 30 mg DAILY ORAL 05/03/20 09:00 06/02/20 08:59 05/08/20 09:10 Metoprolol Succinate (Toprol XL) 50 mg DAILY ORAL 05/03/20 09:00 08/01/20 08:59 05/08/20 09:10 Ondansetron HCl (Zofran) 4 mg Q6H PRN IVP Nausea & Vomiting 05/02/20 14:45 06/01/20 14:44 05/04/20 10:25 Promethazine HCl/ Codeine (Phenergan with Codeine) 5 ml Q4H PRN ORAL For Cough 05/02/20 14:45 06/01/20 14:44 05/08/20 09:11 Sodium Chloride 1,000 ml @ 50 mls/hr Q20H IV 05/04/20 03:15 06/03/20 03:14 05/07/20 20:40 Monica Jaeger MD May 08, 2020 10:47
--- NOTE | 2020-05-08 10:59 | NUR ---
*-*DISCHARGE PLANNING*-* PATIENT HAS BEEN REFERRED TO: [facility] P: [phone] S/W DONOVAN, WILL CALL BACK AFTER REVIEW
[2020-05-08] MEDS ORDERED: Doxycycline Monohydrate 100mg ORAL SCH (11:30)
[2020-05-08 12:00] VITALS: BP 124/75
--- NOTE | 2020-05-08 12:51 | NUR ---
*-*DISCHARGE PLANNING*-* PATIENT HAS BEEN REFERRED TO: [facility] P: [phone] S/W DONOVAN, PENDING ELIGIBILITY, WILL CALL BACK
[2020-05-08] MEDS ORDERED: DOXYCYCLINE MO100 MG ORAL (13:02)
--- NOTE | 2020-05-08 13:04 | Cardiology Progress Note ---
Subjective DATE OF SERVICE: May 08, 2020 Decreasing cough and congestion. Vomited after oral abx BP parameters stable O2 sats 96% on room air CXR (05/06) No interval change from admit Objective Last 24 Hour Vital Signs Date Time Temp Pulse Resp B/P (MAP) Pulse Ox O2 Delivery O2 Flow Rate FiO2 05/08/20 12:00 98.1 73 20 124/75 (91) 98 05/08/20 09:41 98.6 05/08/20 09:10 67 138/90 05/08/20 09:10 67 138/90 05/08/20 09:00 Room Air 05/08/20 08:00 98.6 67 16 138/90 (106) 98 05/08/20 04:00 97.0 67 18 139/67 (91) 95 05/08/20 00:00 97.9 66 18 136/66 (89) 94 05/07/20 21:00 Room Air 05/07/20 20:00 97.8 64 18 129/74 (92) 94 05/07/20 17:03 76 126/81 05/07/20 16:00 98.4 76 19 126/81 (96) 98 05/07/20 15:16 98.2 ROS: unchanged from my assessment of 05/02/20 HEENT: normal ENT inspection LUNGS: bilateral rhonchi - few CARDIAC: normal rate, regular rhythm, normal S1 and S2, gallop/S4 ABDOMEN: normal bowel sounds, non tender, soft, no organomegaly, other - healed surgical scar; left lower quadrant hernia Microbiology Date/Time Source Procedure Growth Status 05/05/20 14:00 Nasopharynx SARS-CoV-2 RdRp Gene Assay - Final Complete Assessment/Plan Assessment/Plan Community acquired pneumonia Hypoxia Hypertension/HHD Non-ischemic cardiomyopathy Non-sustained ventricular ectopy IRDM with neuropathy Hx enterocutaneous fistula Diverticular disease Degenerative disk disease Abnormal gait Acute/chronic kidney disease Ac/chronic diastolic CHF Abx - transition to oral therapy; one additional IV dose today respiratory rx insulin titration at home maintain current BBlocker therapy DC plan with PICC removal prior to leaving facility Eder Mariano MD May 08, 2020 13:04
--- NOTE | 2020-05-08 13:09 | NUR ---
NURSE NOTES: Patient had 1x episode of vomiting at [facility] 1245, Dr. Mariano and Dr. Fernandez aware, Zofran IVP 4mg given. Pt stable at this time, will be discharging later between 5-7 pm, DC PICC line prior leaving facility per Dr. Mariano.
--- NOTE | 2020-05-08 14:06 | NUR ---
*-*DISCHARGE PLANNED*-* PATIENT HAS BEEN ACCEPTED WITH: [facility] P: [phone] S/W DONOVAN, WILL SERVICE PATIENT UPON DISCHARGE.
[2020-05-08 16:00] VITALS: BP 135/87
[2020-05-08] MEDS ORDERED: cefTRIAXone 1 GM in D5W 55 ML IVPB ONE (16:00)
[2020-05-08 18:03] VITALS: BP 135/87
--- NOTE | 2020-05-08 18:26 | NUR ---
NURSE NOTES: Patient was discharged home today, DC paper works signed and completed, inventory list reviewed with no missing belongings, PICC line removed tolerated well with no bleeding, ID band removed. No c/o any pain or discomfort upon discharge, patient was picked up by daughter and left in stable condition at 1820.
[2020-05-09] MEDS ORDERED: Doxycycline Monohydrate 100mg ORAL SCH (09:00)
--- NOTE | 2020-05-10 13:21 | Discharge Summary ---
Discharge Summary Discharge Summary _ DATE OF ADMISSION: 05/02/2020 DATE OF DISCHARGE: 05/08/2020 ADMITTING MD: Dr. Brian Fernandez CONSULTANTS: Dr. Eder Jaeger BRIEF HOSPITAL COURSE: Patient is a 74-year-old female, with history of asthma, osteoarthritis, obesity, hypertension, diabetes, nonischemic cardiomyopathy, stroke, and seizure disorder. She initially presented a week earlier and was seen as outpatient due to complaints of cough and congestion. She was treated with oral antibiotics. Covid PCR was negative. Symptoms worsened and patient requested admission for further evaluation as she was not responding to outpatient therapy. She denies any ill contacts. She has subjective fever, chills and productive cough. Patient was admitted to medical floor for evaluation of pneumonia. She was treated empirically with ceftriaxone. She was given bronchodilator treatment. She was given gentle hydration. She was continued on home medications. Blood glucose was monitored. She was placed on Levemir and NovoLog sliding scale. She was given DVT prophylaxis. Chest x-ray showed left-sided infiltrate. Kidney function improved. BNP increased. IV hydration discontinued. PICC line was inserted to the right arm. She was continued on IV antibiotics. COVID-19 test was negative. Blood culture did not isolate any growth. Sputum culture showed growth of normal upper respiratory andrew. IV antibiotic was transitioned to p.o. Patient had decreased cough and congestion. Patient was cleared for discharge home. Continued p.o. doxycycline for 3 more days. Picc line was discontinued. FINAL DIAGNOSES: Sepsis Community-acquired pneumonia Hypertension with hypertensive heart disease Nonischemic cardiomyopathy Nonsustained ventricular ectopy IR DM with neuropathy Diverticular disease Degenerative disc disease Abnormal gait On chronic kidney disease Acute on chronic diastolic heart failure DISPOSITION: Patient was discharged home. DISCHARGE MEDICATIONS: Refer to Discharge Medication List. DISCHARGE INSTRUCTIONS: Follow-up in a week. I have been assigned to complete a discharge summary on this account, I was not involved with the patient's management.--ENRIQUE Bhat Jacqueline Robles NP May 10, 2020 13:21
== END 2020-05-08 18:58 | DRG 871 ==
LOC: 4E 13:00
PROC: 02HV33Z Insertion of Infusion Device into Superior Vena Cava, Percutaneous Approach (ICD-10-PCS; principal; 2020-05-06)
DX: A41.9 Sepsis, unspecified organism (principal); J18.9 Pneumonia, unspecified organism; I50.33 Acute on chronic diastolic (congestive) heart failure; I42.8 Other cardiomyopathies; N17.9 Acute kidney failure, unspecified; I13.0 Hypertensive heart and chronic kidney disease with heart failure and stage 1 through stage 4 chronic kidney disease, or unspecified chronic kidney disease; E11.65 Type 2 diabetes mellitus with hyperglycemia; E11.40 Type 2 diabetes mellitus with diabetic neuropathy, unspecified; R09.02 Hypoxemia; Z88.1 Allergy status to other antibiotic agents; Z88.0 Allergy status to penicillin; Z88.2 Allergy status to sulfonamides; Z88.8 Allergy status to other drugs, medicaments and biological substances; I49.3 Ventricular premature depolarization; R26.9 Unspecified abnormalities of gait and mobility; N18.9 Chronic kidney disease, unspecified; M19.90 Unspecified osteoarthritis, unspecified site; K57.90 Diverticulosis of intestine, part unspecified, without perforation or abscess without bleeding; Z87.891 Personal history of nicotine dependence; E11.22 Type 2 diabetes mellitus with diabetic chronic kidney disease
CPT/HCPCS: 36415; 36569; 71045; 76937; 80048; 80053; 82962; 83036; 83735; 83880; 85025; 87040; 87070; 87205; J1815; J2405; S5561; U0002